=== PATIENT | male | born 1960 | race American Indian/Alaskan Native ===

== ENCOUNTER 2019-07-21 13:30 | Inpatient (IN) | payer OTHER ==
[2019-07-21] MEDS ORDERED: PEPCID IV ONE (13:41)
[2019-07-21] MEDS ORDERED: SOLU-Medrol IV ONE (13:42)
[2019-07-21] MEDS ORDERED: ADRENALINE P/F SUB-Q ONE (13:42)
[2019-07-21] MEDS ORDERED: BENADRYL IV ONE (13:42)
[2019-07-21] MEDS ORDERED: NACL 0.9% 1000 ML 1,000 ML IV ONE (13:54)
[2019-07-21 14:09] LABS: Basophils % (Auto) 0.4 % (0.0-1.8); Eosinophils # (Auto) 1.4 K/mm3 (0.0-0.4); Eosinophils % (Auto) 12.8 % (0.0-4.3); Hematocrit 44.5 % (35.5-45.6); Hemoglobin 14.5 gm/dl (11.8-15.2); Lymphocytes # (Auto) 0.7 K/mm3 (1.2-5.4); Lymphocytes % (Auto) 6.3 % (13.4-35.0); Mean Corpuscular HGB Conc 33 % (32-34); Mean Corpuscular Volume 108 fl (84-94); Monocytes # (Auto) 0.4 K/mm3 (0.0-0.8); Monocytes % (Auto) 3.8 % (0.0-7.3); Platelet Count 173 K/mm3 (140-440); Red Blood Count 4.12 M/mm3 (3.65-5.03); Red Cell Distribution Width 15.4 % (13.2-15.2)
[2019-07-21 14:29] LABS: Albumin 3.1 g/dL (3.9-5); Calcium 8.9 mg/dL (8.4-10.2)
[2019-07-21] MEDS ORDERED: NACL 0.9% 500 ML 500 ML IV ONE (15:05)
[2019-07-21] MEDS ORDERED: KIONEX PO ONE (15:07)
[2019-07-21] MEDS ORDERED: D50W (25GM) Syringe IV ONE (15:07)
[2019-07-21] MEDS ORDERED: HumuLIN R IV ONE (15:07)
[2019-07-21] MEDS ORDERED: PROVENTIL IH ONE (15:07)
--- NOTE | 2019-07-21 15:29 | Emergency Department Report ---
HPI - General Chief Complaint: Allergic Reaction Time Seen by Provider: 07/21/19 13:41 - HPI HPI: 59-year-old -[place] male presents to the emergency department from home with the complaint of a full body rash, pain to the skin and body aches, painful mouth and throat, and questionable allergic reaction. The symptoms have been going on and getting progressively worse over the past 3 days. He has a past medical history of hypertension and gout. He denies being on any new medications or being on any antibiotics. The rash has been warm, red, painful but has always been dry. No recent travel or sick contacts at home. His primary care physician is Dr. Sabrina Diggs. The patient did not take anything for his symptoms prior to arrival today. ED Past Medical Hx - Past Medical History Previous Medical History?: Yes Hx Hypertension: Yes Hx CVA: No Hx Heart Attack/AMI: No Hx Congestive Heart Failure: No Hx Diabetes: No Hx Deep Vein Thrombosis: No Hx Pulmonary Embolism: No Hx GERD: No Hx Liver Disease: No Hx Renal Disease: No Hx of Cancer: No Hx Sickle Cell Disease: No Hx Arthritis: No Hx Headaches / Migraines: No Hx Seizures: No Hx Kidney Stones: No Hx Psychiatric Treatment: No Hx Asthma: No Hx COPD: No Hx Tuberculosis: No Hx Dementia: No Hx HIV: No - Surgical History Past Surgical History?: No Hx Coronary Stent: No Hx Open Heart Surgery: No Hx Pacemaker: No Hx Internal Defibrillator: No Hx Cholecystectomy: No Hx Appendectomy: No Hx Breast Surgery: No - Social History Smoking Status: Never Smoker - Medications Home Medications: Home Medications Medication Instructions Recorded Confirmed Last Taken Type Allopurinol [Zyloprim] 100 mg PO QDAY 07/21/19 07/21/19 07/20/19 History Allopurinol [Zyloprim] 300 mg PO QDAY 07/21/19 07/21/19 07/20/19 History Colchicine 0.6 mg PO BID 07/21/19 07/21/19 07/20/19 History Meloxicam [Mobic] 15 mg PO QDAY 07/21/19 07/21/19 07/20/19 History amLODIPine [Norvasc] 10 mg PO DAILY 07/21/19 07/21/19 07/20/19 History methylPREDNISolone [Medrol] 4 mg PO ONCE 07/21/19 07/21/19 07/17/19 History predniSONE [Deltasone] 5 mg PO BID 07/21/19 07/21/19 07/20/19 History ED Review of Systems ROS: Stated complaint: ALLERGIC REACTION Other details as noted in HPI Constitutional: denies: fever, weakness Eyes: denies: eye pain, vision change ENT: throat pain. denies: ear pain Respiratory: shortness of breath. denies: cough Cardiovascular: denies: chest pain, edema Gastrointestinal: denies: abdominal pain, vomiting Genitourinary: denies: dysuria, discharge Musculoskeletal: myalgia. denies: back pain Skin: rash, change in color Neurological: denies: headache, numbness Physical Exam - Physical Exam Vital Signs: Vital Signs 07/21/19 07/21/19 07/21/19 13:38 13:43 13:45 Temperature 97.4 F L Pulse Rate 111 H 89 106 H Respiratory 16 18 Rate Blood Pressure 129/89 129/89 Blood Pressure 129/89 [Right] O2 Sat by Pulse 99 100 Oximetry 07/21/19 07/21/19 07/21/19 14:00 14:15 14:31 Temperature Pulse Rate 102 H 99 H 104 H Respiratory 17 14 13 Rate Blood Pressure 130/88 130/88 130/88 Blood Pressure [Right] O2 Sat by Pulse 100 100 100 Oximetry 07/21/19 07/21/19 14:45 15:01 Temperature Pulse Rate 103 H 102 H Respiratory 16 15 Rate Blood Pressure 130/88 165/98 Blood Pressure [Right] O2 Sat by Pulse 100 98 Oximetry Physical Exam: GENERAL: Patient is ill-appearing. HENT: Normocephalic. Atraumatic. Patient has dry mucous membranes. Mildly swollen tongue. No drooling. There is mild trismus secondary to pain. Patient is able to swallow but has visible pain with doing so. EYES: Extraocular motions are intact. Pupils equal reactive to light bila terally. NECK: Supple. Trachea is midline. CHEST/LUNGS: Clear to auscultation. There is no respiratory distress noted. HEART/CARDIOVASCULAR: Regular. There is mild tachycardia. There is no murmur. ABDOMEN: Abdomen is soft, nontender. Patient has normal bowel sounds. There is no abdominal distention. SKIN: Patient's entire chest, abdomen, back and bilateral upper extremities has warm, blanchable, erythematous skin. He has some erythematous macular spots down the bilateral lower extremities that could be petechiae. There is no blistering, weeping, drainage. Negative Nikolsky sign. Patient has severely chapped lips with crusting/eschar. NEURO: The patient is awake, alert, and oriented. The patient is cooperative. The patient has no focal neurologic deficits. Normal speech. MUSCULOSKELETAL: Patient has generalized tenderness to palpation including all of his extremities. There is no limitation range of motion. ED Course Vital Signs 07/21/19 07/21/19 07/21/19 13:38 13:43 13:45 Temperature 97.4 F L Pulse Rate 111 H 89 106 H Respiratory 16 18 Rate Blood Pressure 129/89 129/89 Blood Pressure 129/89 [Right] O2 Sat by Pulse 99 100 Oximetry 07/21/19 07/21/19 07/21/19 14:00 14:15 14:31 Temperature Pulse Rate 102 H 99 H 104 H Respiratory 17 14 13 Rate Blood Pressure 130/88 130/88 130/88 Blood Pressure [Right] O2 Sat by Pulse 100 100 100 Oximetry 07/21/19 07/21/19 14:45 15:01 Temperature Pulse Rate 103 H 102 H Respiratory 16 15 Rate Blood Pressure 130/88 165/98 Blood Pressure [Right] O2 Sat by Pulse 100 98 Oximetry - Consultations Consultation #1: 07/21/19 15:[address] Chavis, Nephrology, this into the case presentation and has asked for the hyperkalemia cocktail to be given including a few amps of sodium bicarbonate. He says that his partner, Dr Gil, will be in to see the patient. Shortly afterwards, Dr Gil called and asked for vascular surgery to be consulted for a vas cath placement as the patient will need emergent dialysis. Vascular paged. ED Medical Decision Making - Lab Data Result diagrams: 07/21/19 13:50 07/21/19 13:50 - EKG Data -: EKG Interpreted by Me EKG shows normal: sinus rhythm, axis (left axis deviation and see her EOM), intervals, QRS complexes (Incomplete LBBB), ST-T waves Rate: normal - EKG Data When compared to previous EKG there are: previous EKG unavailable Interpretation: other (incomplete LBBB) - Radiology Data Radiology results: image reviewed interpreted by me: Chest x-ray does not show any acute process. There are no pleural effusions, obvious pneumonia and there is no pneumothorax. - Medical Decision Making This patient presented with the thought that he might have an allergic reaction as he has been having increased redness and rash to the skin. However it does not appear like a typical allergic reaction as these are not urticarial lesions. His entire abdomen, chest, back and upper extremities have a confluent erythema that is warm and blanchable. It is slightly thickened as well. He has some macular spots going down the bilateral lower extremities that could be some petechiae. All of his skin and most of his body is tender to palpation. He has some pain with swallowing. He has severely chapped lips with some crusting or eschar around. He has slightly swollen tongue but there is no drooling or trismus. His oxygen saturation was 100% on room air. Initially he was given the allergic reaction cocktail of medications. Patient's labs were severely abnormal. He has acute renal failure with a GFR of 2 and a potassium level greater than 8. He received the hyperkalemia cocktail. Nephrology was contacted and consulted. Vascular surgery to the patient for a Vas-Cath and then the patient went immediately to dialysis. His vital signs are stable throughout his [place]. The patient will be admitted to the hospital for further evaluation and treatment and was accepted for admission by the hospitalist, Dr. Duke. - Differential Diagnosis SSS, Lupus Nephritis, Sepsis, Angioedema Critical Care Time: Yes Critical care time in (mins) excluding proc time.: 35 Critical care attestation.: If time is entered above; I have spent that time in minutes in the direct care of this critically ill patient, excluding procedure time. Critical care time was spent on this patient and doing his initial evaluation, multiple re-evaluations, ordering and interpretation of labs and imaging, discussion with the director of publications, vascular surgery, hospitalist, and the patient and his family. Critical Care Time: 35 minutes ED Disposition Clinical Impression: Hyperkalemia, Rash and nonspecific skin eruption, Metabolic acidosis, Elevated liver enzymes Acute renal failure Qualifiers: Acute renal failure type: unspecified Qualified Code(s): N17.9 - Acute kidney failure, unspecified Disposition: 09 OP ADMIT IP TO THIS HOSP Is pt being admited?: Yes Condition: Serious Time of Disposition: 16:40
[2019-07-21] MEDS ORDERED: CALCIUM GLUCONATE 1,000 MG in NACL 0.9% 100 ML IV ONE (15:30)
--- NOTE | 2019-07-21 15:32 | XRay Report ---
CHEST 1 VIEW INDICATION: Shortness of breath. COMPARISON: None FINDINGS: Support devices: None. Heart: Within normal limits. Lungs/Pleura: No acute air space or interstitial disease. Additional findings: None. IMPRESSION: No acute findings. Signer Name: Adam Burroughs Jr, MD Signed: 07/21/2019 3:28 PM Workstation Name: [id number]
--- NOTE | 2019-07-21 15:46 | Consultation ---
History of Present Illness - Reason for Consult Consult date: 07/21/19 acute renal failure, hyperkalemia, metabolic acidosis Requesting physician: JESSIE MILLS - History of Present Illness This is a 59 y/o M who presented to [facility] ED with PMH of HTN, CKD (exact stage un known), and gout with c/o full body rash with pain, body aches, sore throat, tongue swelling, shortness of breath, and mouth pain that has progressively worsened over the past 3 days. Pt denies taking any new medications or using new washing powder or detergent to his knowledge. Pt denies nausea, vomiting, diarrhea, constipation, black or bloody stool. Pt found to have severe hyperkalemia (K+ 8.2), metabolic acidosis, and worsening renal function. SCr level was 24.3 today. Kayexalate, sodium bicarbonate, calcium gluconate, IV insulin/D50 ordered in ED. Pt s/p solu-medrol, Epi, albuterol, and benadryl. Vascular surgery consulted for Vas Cath placement for STAT HD. First HD treatment today. We were consulted to evaluate this pt who has severe renal failure with hyperkalemia and acidosis. Pt denies NSAIDs use, but meloxicam noted on home medication list, will need to confirm medications. Pt reports seeing Dr Holt (last turner) in [place], [place] over a year ago for abnormal renal function, but never followed up after initial office visit. Pt currently isn't followed by a last turner. Pt seen in the ED, currently getting breathing treatment, family at bedside. Pt and family agreeable to Vas Cath placement and HD. Past History Past Medical History: hypertension, other (gout, chronic kidney disease) Medications and Allergies Allergies Allergy/AdvReac Type Severity Reaction Status Date / Time Unable to Assess Allergy Unverified 07/21/19 16:46 Home Medications Medication Instructions Recorded Confirmed Last Taken Type Allopurinol [Zyloprim] 100 mg PO QDAY 07/21/19 07/21/19 07/20/19 History Allopurinol [Zyloprim] 300 mg PO QDAY 07/21/19 07/21/19 07/20/19 History Colchicine 0.6 mg PO BID 07/21/19 07/21/19 07/20/19 History Meloxicam [Mobic] 15 mg PO QDAY 07/21/19 07/21/19 07/20/19 History amLODIPine [Norvasc] 10 mg PO DAILY 07/21/19 07/21/19 07/20/19 History methylPREDNISolone [Medrol] 4 mg PO ONCE 07/21/19 07/21/19 07/17/19 History predniSONE [Deltasone] 5 mg PO BID 07/21/19 07/21/19 07/20/19 History Active Meds: Active Medications Sodium Chloride (Nacl 0.9% 1000 Ml) 1,000 mls @ 250 mls/hr IV ONCE ONE Stop: 07/21/19 17:53 Last Admin: 07/21/19 14:03 Dose: 250 mls/hr Documented by: Review of Systems Constitutional: fatigue, weakness Ears, nose, mouth and throat: mouth pain, sore throat, swelling in mouth Cardiovascular: shortness of breath Respiratory: shortness of breath Gastrointestinal: no abdominal pain, no nausea, no vomiting, no diarrhea, no constipation, no melena Genitourinary Male: no hematuria Musculoskeletal: muscle weakness Integumentary: rash (diffuse rash throughout entire body) Neurological: weakness Allergic/Immunologic: other (diffuse rash, sore throat, mouth pain, tongue swelling) Exam - Vital Signs Vital signs: Vital Signs Pulse 111 H 07/21/19 13:38 - General Appearance General appearance: other (awake) EENT: ATNC Neck: Present: neck supple Respiratory: Decreased Breath Sounds Heart: regular, S1S2 Gastrointestinal: Present: normoactive bowel sounds. Absent: tenderness Integumentary: rash (diffuse rash throughout entire body) Neurologic: alert and oriented x3 Musculoskeletal: Present: other (no edema to BLE) Psychiatric: cooperative Results - Lab Results 07/21/19 13:50 07/21/19 13:50 Most recent lab results Calcium 8.9 mg/dL (8.4-10.2) 07/21/19 13:50 Assessment and Plan Diffuse Rash concern of allergic reaction Acute Kidney Injury on CKD, exact etiology of acute component unclear, underlying hx of CKD (exact stage unknown), r/o obstruction Hyperkalemia High Anion Gap Metabolic Acidosis Essential HTN Hx of Gout Plan: - Labs reviewed, SCr level was 24.3 with BUN of 163 today - Pt reports seeing a last turner 1 yr ago for abnormal renal function, but never followed up after initial office visit - Discussed with pt and family about nephrology recommendation for initiation of HD including need for Vas Catheter placement, unclear at this time if pt will need hemodialysis temporary in hospital vs longer term as an outpatient. We will evaluate pt daily and adjust renal management as needed. Pt and family agreeable to dialysis catheter placement and HD - Consulted Dr Romulo Ramos (vascular surgeon) for Vas Catheter placement - STAT HD today for clearance only, no ultrafiltration - Dialysis nurse notified about HD orders - Assess need for HD on daily basis - Repeat BMP at 2200 post HD - Obtain list of home medications for review - Avoid ACEI/ARBs in setting of severe renal failure - Avoid NSAIDs - Obtain Renal US - Obtain UA/lytes and urine protein, will evaluate need for GN/vasculitis work up - Renally dose meds - [place] Catheter: No - Renal plan d/w Dr Gil
[2019-07-21] MEDS ORDERED: VERSED ONE (16:23)
[2019-07-21] MEDS ORDERED: SUBLIMAZE ONE (16:23)
[2019-07-21] MEDS ORDERED: NACL 0.9% 250ML 250 ML ONE (16:24)
[2019-07-21] MEDS ORDERED: HEPARIN/NS 5000 UNIT/500ML(CATH LAB) 500 ML IR ONE (16:24)
[2019-07-21] MEDS ORDERED: XYLOCAINE 1%/ EPI 1:100,000 INFILTRATI ONE (16:24)
--- NOTE | 2019-07-21 17:00 | Consultation ---
History of Present Illness - Reason for Consult Consult date: 07/21/19 Vas-Cath Placement Requesting physician: JESSIE MILLS - History of Present Illness The patient is a 59-year-old male who presented to the emergency department with complaints of a full body rash, also involving his mouth and tongue that started approximately 3 days ago and progressively worsened associated with shortness of breath and generalized body pain. He has a past medical history significant for hypertension and chronic kidney disease of unknown stage. His labs included a BMP with hyperkalemia of 8.2. He is in need of emergent dialysis. He requires placement of a Vas-Cath. He has no other complaints at this time. Past History Past Medical History: hypertension, other (gout, chronic kidney disease) Medications and Allergies Allergies Allergy/AdvReac Type Severity Reaction Status Date / Time Unable to Assess Allergy Unverified 07/21/19 16:46 Home Medications Medication Instructions Recorded Confirmed Last Taken Type Allopurinol [Zyloprim] 100 mg PO QDAY 07/21/19 07/21/19 07/20/19 History Allopurinol [Zyloprim] 300 mg PO QDAY 07/21/19 07/21/19 07/20/19 History Colchicine 0.6 mg PO BID 07/21/19 07/21/19 07/20/19 History Meloxicam [Mobic] 15 mg PO QDAY 07/21/19 07/21/19 07/20/19 History amLODIPine [Norvasc] 10 mg PO DAILY 07/21/19 07/21/19 07/20/19 History methylPREDNISolone [Medrol] 4 mg PO ONCE 07/21/19 07/21/19 07/17/19 History predniSONE [Deltasone] 5 mg PO BID 07/21/19 07/21/19 07/20/19 History Active Meds: Active Medications Sodium Chloride (Nacl 0.9% 1000 Ml) 1,000 mls @ 250 mls/hr IV ONCE ONE Stop: 07/21/19 17:53 Last Admin: 07/21/19 14:03 Dose: 250 mls/hr Documented by: Review of Systems All systems: negative Exam - Constitutional Vitals: Temp Pulse Resp BP Pulse Ox 97.4 F L 102 H 15 165/98 98 07/21/19 13:43 07/21/19 15:01 07/21/19 15:01 07/21/19 15:01 07/21/19 15:01 General appearance: Present: no acute distress - EENT ENT: ulcerations (lips/tongue) - Respiratory Respiratory effort: normal - Cardiovascular Rhythm: regular - Extremities Extremities: no ischemia - Abdominal General gastrointestinal: Present: soft, non-distended - Integumentary Integumentary: Present: rash (diffuse) Results - Labs CBC & Chem 7: 07/21/19 13:50 07/21/19 13:50 Labs: Abnormal lab results 07/21/19 07/21/19 07/21/19 Range/Units 13:50 13:50 13:50 WBC 11.2 H (4.5-11.0) K/mm3 MCV 108 H (84-94) fl MCH 35 H (28-32) pg RDW 15.4 H (13.2-15.2) % Lymph % (Auto) 6.3 L (13.4-35.0) % Eos % (Auto) 12.8 H (0.0-4.3) % Lymph # 0.7 L (1.2-5.4) K/mm3 Eos # 1.4 H (0.0-0.4) K/mm3 Seg Neutrophils % 76.7 H (40.0-70.0) % Seg Neutrophils # 8.6 H (1.8-7.7) K/mm3 VBG pH (7.320-7.420) Sodium 135 L (137-145) mmol/L Potassium 8.2 H* (3.6-5.0) mmol/L Chloride 94.5 L (98-107) mmol/L Carbon Dioxide 7 L* (22-30) mmol/L BUN 163 H (9-20) mg/dL Creatinine 24.7 H (0.8-1.5) mg/dL Glucose 118 H (75-100) mg/dL Lactic Acid 3.50 H* (0.7-2.0) mmol/L AST 205 H (5-40) units/L ALT 280 H (7-56) units/L Albumin 3.1 L (3.9-5) g/dL 07/21/19 Range/Units 15:18 WBC (4.5-11.0) K/mm3 MCV (84-94) fl MCH (28-32) pg RDW (13.2-15.2) % Lymph % (Auto) (13.4-35.0) % Eos % (Auto) (0.0-4.3) % Lymph # (1.2-5.4) K/mm3 Eos # (0.0-0.4) K/mm3 Seg Neutrophils % (40.0-70.0) % Seg Neutrophils # (1.8-7.7) K/mm3 VBG pH 7.179 L* (7.320-7.420) Sodium (137-145) mmol/L Potassium (3.6-5.0) mmol/L Chloride (98-107) mmol/L Carbon Dioxide (22-30) mmol/L BUN (9-20) mg/dL Creatinine (0.8-1.5) mg/dL Glucose (75-100) mg/dL Lactic Acid (0.7-2.0) mmol/L AST (5-40) units/L ALT (7-56) units/L Albumin (3.9-5) g/dL Assessment and Plan Patient with acute renal failure and in need of emergent dialysis. Discussed the risks benefits and alternative procedures of emergent Vas-Cath placement with the patient as well as his daughter who expressed understanding and agreement with the plan.
[2019-07-21] MEDS: HEPARIN 10,000 UNITS/10 ML ONE ×2 (17:15→17:16)
--- NOTE | 2019-07-21 17:47 | Operative Report ---
Operative Report Operative Report: Date of Procedure: 07/21/2019 Pre-operative Diagnosis: Acute Renal Failure with Hyperkalemia Post-operative Diagnosis: Same Procedure(s): 1. Ultrasound-Guided Access Right Internal Jugular Vein 2. Placement of 15 Cm Pre-Curved Vas-Cath 3. Radiologic Supervision and Interpretation Surgeon: Romulo Ramos M.D. Operations Research Group Manager: None Anesthesia: 1% Lidocaine Plain EBL: Minimal Counts: Correct Complications: None Condition: Stable Findings: Successful placement of right internal jugular permacath without evidence of pneumothorax. Specimen: None Indication: The patient is a 59-year-old male who presented to the emergency department with complaints of a generalized body rash that also involved his mouth and was associated with generalized body pain and shortness of breath. His labs indicated acute on chronic renal failure with hyperkalemia with a potassium of 8.2. He is in need of a Vas-Cath for emergent dialysis. He and his daughter were given the risks, benefits, and alternative procedures and consented to the procedure. Description of Procedure: The patient was brought to the production laborer and laid in supine position. After timeout his neck was then prepped and draped in normal sterile fashion. Ultrasound was used to identify the right internal jugular and confirm patency. Once patency of the vessel was confirmed the overlying skin and soft tissue was anesthetized with lidocaine. A small stab incision was made and micropuncture technique was used with ultrasound guidance to the right internal jugular vein. The inner dilator and wire were removed and a 0.035 J-wire was advanced into the inferior vena cava under fluoroscopy. The micropuncture sheath was removed and the tract was dilated and the Vas-Cath was then inserted by Seldinger technique. The J-wire was removed and both ports were aspirated and flushed and then primed with the appropriate amount of heparin. The catheter was secured in place with 2-0 Ethilon in interrupted fashion and dressed with a sterile dressing. Final fluoroscopy demonstrated the catheter was in adequate position without evidence of pneumothorax. The patient was transported back to the emergency department in stable condition.
[2019-07-21 19:46] LABS: Hepatitis B Surface Antigen Non-Reactive (Negative); Hepatitis C Virus Antibody Non-Reactive (NonReactive)
--- NOTE | 2019-07-21 20:57 | History and Physical Report ---
History of Present Illness Date of examination: 07/21/19 Date of admission: 07/21/19 16:40 Chief complaint: Rash all over for 2 or 3 days--redness all over History of present illness: 59-year-old -[place] male a very poor historian with history of gout, hypertension and end-stage renal disease comes in for a rash all over which is red. No maculopapular rash. Patient says that he is on vancomycin for last 1 week. Cannot use the reason why he is on the vancomycin. Patient was found to have a high potassium level around 8 in the emergency room--- hence admission for the high potassium and worsening renal function. Patient is not known to be on hemodialysis. Patient does not know who his first cook is. No fever or chills. Patient also has history of gout. No exacerbating or relieving factors except vancomycin. Review of Systems Constitutional: fatigue, weakness Ears, nose, mouth and throat: mouth pain, sore throat, swelling in mouth Cardiovascular: shortness of breath Respiratory: shortness of breath Gastrointestinal: no abdominal pain, no nausea, no vomiting, no diarrhea, no constipation, no melena Genitourinary Male: no hematuria Musculoskeletal: muscle weakness Integumentary: rash (diffuse rash throughout entire body) Neurological: weakness Allergic/Immunologic: other (diffuse rash, sore throat, mouth pain, tongue swelling) Past History Past Medical History: hypertension, other (gout, chronic kidney disease) Past Surgical History: No surgical history Social history: Lives alone, full code Family history: hypertension Medications and Allergies Allergies Allergy/AdvReac Type Severity Reaction Status Date / Time Unable to Assess Allergy Unverified 07/21/19 16:46 Home Medications Medication Instructions Recorded Confirmed Last Taken Type Allopurinol [Zyloprim] 100 mg PO QDAY 07/21/19 07/21/19 07/20/19 History Allopurinol [Zyloprim] 300 mg PO QDAY 07/21/19 07/21/19 07/20/19 History Colchicine 0.6 mg PO BID 07/21/19 07/21/19 07/20/19 History Meloxicam [Mobic] 15 mg PO QDAY 07/21/19 07/21/19 07/20/19 History amLODIPine [Norvasc] 10 mg PO DAILY 07/21/19 07/21/19 07/20/19 History methylPREDNISolone [Medrol] 4 mg PO ONCE 07/21/19 07/21/19 07/17/19 History predniSONE [Deltasone] 5 mg PO BID 07/21/19 07/21/19 07/20/19 History Exam - Constitutional Vitals: Temp Pulse Resp BP Pulse Ox 97.4 F L 94 H 13 179/113 99 07/21/19 13:43 07/21/19 18:15 07/21/19 18:15 07/21/19 18:15 07/21/19 18:15 General appearance: Present: no acute distress, well-nourished - EENT Eyes: Present: PERRL ENT: hearing intact, clear oral mucosa - Neck Neck: Present: supple, normal ROM - Respiratory Respiratory effort: normal Respiratory: bilateral: CTA - Cardiovascular Heart rate: 78 Rhythm: regular Heart Sounds: Present: S1 & S2. Absent: rub, click - Extremities Extremities: no ischemia, pulses intact, pulses symmetrical, No edema Peripheral Pulses: within normal limits - Abdominal General gastrointestinal: Present: soft, non-tender, non-distended, normal bowel sounds Male genitourinary: Present: normal - Integumentary Integumentary: Present: clear, warm, dry, erythema (erythema all over) - Musculoskeletal Musculoskeletal: gait normal, strength equal bilaterally - Psychiatric Psychiatric: appropriate mood/affect, intact judgment & insight - Neurologic Neurologic: CNII-XII intact, moves all extremities - Allied Health Allied health notes reviewed: nursing, case management Results - Labs CBC & Chem 7: 07/21/19 13:50 07/21/19 13:50 Labs: Laboratory Last Values WBC 11.2 K/mm3 (4.5-11.0) H 07/21/19 13:50 RBC 4.12 M/mm3 (3.65-5.03) 07/21/19 13:50 Hgb 14.5 gm/dl (11.8-15.2) 07/21/19 13:50 Hct 44.5 % (35.5-45.6) 07/21/19 13:50 MCV 108 fl (84-94) H 07/21/19 13:50 MCH 35 pg (28-32) H 07/21/19 13:50 MCHC 33 % (32-34) 07/21/19 13:50 RDW 15.4 % (13.2-15.2) H 07/21/19 13:50 Plt Count 173 K/mm3 (140-440) 07/21/19 13:50 Lymph % (Auto) 6.3 % (13.4-35.0) L 07/21/19 13:50 Jack % (Auto) 3.8 % (0.0-7.3) 07/21/19 13:50 Eos % (Auto) 12.8 % (0.0-4.3) H 07/21/19 13:50 Baso % (Auto) 0.4 % (0.0-1.8) 07/21/19 13:50 Lymph # 0.7 K/mm3 (1.2-5.4) L 07/21/19 13:50 Jack # 0.4 K/mm3 (0.0-0.8) 07/21/19 13:50 Eos # 1.4 K/mm3 (0.0-0.4) H 07/21/19 13:50 Baso # 0.0 K/mm3 (0.0-0.1) 07/21/19 13:50 Seg Neutrophils % 76.7 % (40.0-70.0) H 07/21/19 13:50 Seg Neutrophils # 8.6 K/mm3 (1.8-7.7) H 07/21/19 13:50 VBG pH 7.179 (7.320-7.420) L* 07/21/19 15:18 Sodium 135 mmol/L (137-145) L 07/21/19 13:50 Potassium 8.2 mmol/L (3.6-5.0) H* 07/21/19 13:50 Chloride 94.5 mmol/L (98-107) L 07/21/19 13:50 Carbon Dioxide 7 mmol/L (22-30) L* 07/21/19 13:50 42 mmol/L 07/21/19 13:50 BUN 163 mg/dL (9-20) H 07/21/19 13:50 24.7 mg/dL (0.8-1.5) H 07/21/19 13:50 Estimated GFR 2 ml/min 07/21/19 13:50 7 % 07/21/19 13:50 Glucose 118 mg/dL (75-100) H 07/21/19 13:50 Lactic Acid 1.90 mmol/L (0.7-2.0) 07/21/19 15:18 Calcium 8.9 mg/dL (8.4-10.2) 07/21/19 13:50 0.30 mg/dL (0.1-1.2) 07/21/19 13:50 AST 205 units/L (5-40) H 07/21/19 13:50 ALT 280 units/L (7-56) H 07/21/19 13:50 103 units/L (35-129) 07/21/19 13:50 96 units/L (55-170) 07/21/19 13:50 6.4 g/dL (6.3-8.2) 07/21/19 13:50 3.1 g/dL (3.9-5) L 07/21/19 13:50 0.9 % 07/21/19 13:50 TSH 0.753 mlU/mL (0.270-4.200) 07/21/19 13:50 Hepatitis A IgM Ab Non-reactive (NonReactive) 07/21/19 13:50 Hep Bs Antigen Non-reactive (Negative) 07/21/19 13:50 Hep B Core IgM Ab Non-reactive (NonReactive) 07/21/19 13:50 Non-reactive (NonReactive) 07/21/19 13:50 Short CBC 07/21/19 Range/Units 13:50 WBC 11.2 H (4.5-11.0) K/mm3 Hgb 14.5 (11.8-15.2) gm/dl Hct 44.5 (35.5-45.6) % Plt Count 173 (140-440) K/mm3 BMP 07/21/19 13:50 Sodium 135 L Potassium 8.2 H* Chloride 94.5 L Carbon Dioxide 7 L* BUN 163 H Creatinine 24.7 H Glucose 118 H Calcium 8.9 Cardiac Enzymes 07/21/19 Range/Units 13:50 Total Creatine Kinase 96 (55-170) units/L Liver Function 07/21/19 Range/Units 13:50 Total Bilirubin 0.30 (0.1-1.2) mg/dL AST 205 H (5-40) units/L ALT 280 H (7-56) units/L Alkaline Phosphatase 103 (35-129) units/L Albumin 3.1 L (3.9-5) g/dL - Imaging and Cardiology EKG: report reviewed (heart rate of 99/m, incomplete left bundle-branch block) Chest x-ray: report reviewed (no acute findings) Assessment and Plan Advance Directives: Yes (full code) VTE prophylaxis?: Chemical Plan of care discussed with patient/family: Yes - Patient Problems (1) Acute renal failure Current Visit: Yes Status: Acute Qualifiers: Acute renal failure type: with acute renal cortical necrosis Qualified Code(s): N17.1 - Acute kidney failure with acute cortical necrosis Plan to address problem: Acute on chronic renal failure sec to ATN Patient never had hemodialysis As per daughter patient has chronic kidney disease Patient and the daughter do not know the name of his first cook Patient to get emergent hemodialysis after Vas-Cath placement (2) Hyperkalemia Current Visit: Yes Status: Acute Plan to address problem: Patient treated with the Kayexalate calcium gluconate and sodium bicarbonate and IV insulin. 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 Not clear why he is taking vancomycin Patient very poor historian Patient on prednisone IV Solu-Medrol for 48 hours at low-dose (4) Elevated liver enzymes Current Visit: Yes Status: Acute Plan to address problem: Elevated liver enzymes Hepatitis profile ordered (5) Metabolic acidosis Current Visit: Yes Status: Acute Plan to address problem: Secondary to severe uremia Hopefully should correct with hemodialysis (6) Hypertension Current Visit: Yes Status: Chronic Qualifiers: Hypertension type: essential hypertension Qualified Code(s): I10 - Essential (primary) hypertension Plan to address problem: Continue antihypertensives (7) Gout Current Visit: Yes Status: Inactive Plan to address problem: Inactive Continue allopurinol (8) DVT prophylaxis Current Visit: Yes Status: Acute Plan to address problem: On heparin 5000 every 12 and GI prophylaxis
[2019-07-21] MEDS ORDERED: ZOFRAN IV PRN ×2 (21:15→21:46)
[2019-07-21] MEDS ORDERED: TYLENOL PO PRN ×2 (21:15→21:46)
[2019-07-21] MEDS ORDERED: PERCOCET 5/325 PO PRN (21:15)
[2019-07-21] MEDS ORDERED: DILAUDID IV PRN (21:15)
[2019-07-21] MEDS ORDERED: SODIUM CHLORIDE FLUSH SYRINGE 10 ML IV PRN ×2 (21:15→21:46)
[2019-07-21] MEDS ORDERED: REGLAN IV PRN (21:46)
[2019-07-21] MEDS ORDERED: SODIUM CHLORIDE FLUSH SYRINGE 10 ML IV SCH (22:00)
[2019-07-21] MEDS ORDERED: PEPCID PO SCH (22:00)
[2019-07-21] MEDS ORDERED: NACL 0.9 (PRIMING MACHINE ONLY DIALYSIS) MC ONE (23:59)
[2019-07-22] MEDS: NORVASC PO SCH ×2 (00:43→10:26)
[2019-07-22] MEDS: PEPCID PO SCH ×3 (00:43→21:49)
[2019-07-22] MEDS: ZYLOPRIM PO SCH ×2 (00:43→10:26)
[2019-07-22] MEDS: SOLU-Medrol IV SCH ×4 (00:43→21:49)
[2019-07-22] MEDS: SODIUM CHLORIDE FLUSH SYRINGE 10 ML IV SCH ×3 (00:44→21:50)
[2019-07-22] MEDS: DELTASONE PO SCH ×2 (00:49→10:26)
[2019-07-22 07:11] LABS: Calcium 7.9 mg/dL (8.4-10.2)
--- NOTE | 2019-07-22 08:08 | Ultrasound Report ---
ULTRASOUND RENAL INDICATION / CLINICAL INFORMATION: Acute kidney injury. COMPARISON: None available. FINDINGS: RIGHT KIDNEY: Length = 10.1 cm. [normal > 9 cm] - Parenchymal Thickness = 1.7 cm. [normal > 1.5 cm] - Echogenicity: Increased - Hydronephrosis: None. - Cyst or mass: No significant abnormality. - Stones: None seen. LEFT KIDNEY: Length = 9.3 cm. [normal > 9 cm] - Parenchymal Thickness = 1.4 cm. [normal > 1.5 cm] - Echogenicity: Increased - Hydronephrosis: None. - Cyst or mass: No significant abnormality. - Stones: None seen. URINARY BLADDER: Empty but no gross abnormality FREE FLUID: None. ADDITIONAL FINDINGS: None. IMPRESSION: Normal size but markedly echogenic kidneys consistent with nonspecific renal parenchymal disease. No focal renal lesion or hydronephrosis is identified. Signer Name: Adam Burroughs Jr, MD Signed: 07/22/2019 8:03 AM Workstation Name: [id number]
--- NOTE | 2019-07-22 08:56 | Progress Note ---
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 Plan to address problem: Stable, Continue allopurinol --Moderate malnutrition; hypoalbuminemia Nutrition supplements, supportive care -- DVT prophylaxis Current Visit: Yes Status: Acute On heparin 5000 every 12 and GI prophylaxis Monitor closely and adjust management as needed Center recommendations noted and appreciated Plan of care is reviewed with the patient and his nurse History Interval history: Patient seen and examined , medical records reviewed. 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 Patient feels slightly better Alert awake oriented vital signs reviewed Hospitalist Physical - Constitutional Vitals: Temp Pulse Resp BP Pulse Ox 98.0 F 64 18 132/90 85 07/22/19 08:07 07/22/19 08:07 07/22/19 08:07 07/22/19 08:07 07/22/19 08:07 General appearance: Present: no acute distress, well-nourished - EENT Eyes: Present: PERRL, EOM intact - Neck Neck: Present: supple, normal ROM - Respiratory Respiratory effort: normal Respiratory: bilateral: diminished, negative: rales, rhonchi, wheezing - Cardiovascular Rhythm: regular Heart Sounds: Present: S1 & S2 - Extremities Extremities: no ischemia, No edema - Abdominal General gastrointestinal: soft, non-tender, non-distended, normal bowel sounds - Integumentary Integumentary: Present: clear, warm - Psychiatric Psychiatric: appropriate mood/affect, cooperative - Neurologic Neurologic: CNII-XII intact, moves all extremities Results - Labs CBC & Chem 7: 07/21/19 13:50 07/22/19 06:25 Labs: Laboratory Last Values WBC 11.2 K/mm3 (4.5-11.0) H 07/21/19 13:50 RBC 4.12 M/mm3 (3.65-5.03) 07/21/19 13:50 Hgb 14.5 gm/dl (11.8-15.2) 07/21/19 13:50 Hct 44.5 % (35.5-45.6) 07/21/19 13:50 MCV 108 fl (84-94) H 07/21/19 13:50 MCH 35 pg (28-32) H 07/21/19 13:50 MCHC 33 % (32-34) 07/21/19 13:50 RDW 15.4 % (13.2-15.2) H 07/21/19 13:50 Plt Count 173 K/mm3 (140-440) 07/21/19 13:50 Lymph % (Auto) 6.3 % (13.4-35.0) L 07/21/19 13:50 Jewell % (Auto) 3.8 % (0.0-7.3) 07/21/19 13:50 Eos % (Auto) 12.8 % (0.0-4.3) H 07/21/19 13:50 Baso % (Auto) 0.4 % (0.0-1.8) 07/21/19 13:50 Lymph # 0.7 K/mm3 (1.2-5.4) L 07/21/19 13:50 Jewell # 0.4 K/mm3 (0.0-0.8) 07/21/19 13:50 Eos # 1.4 K/mm3 (0.0-0.4) H 07/21/19 13:50 Baso # 0.0 K/mm3 (0.0-0.1) 07/21/19 13:50 Seg Neutrophils % 76.7 % (40.0-70.0) H 07/21/19 13:50 Seg Neutrophils # 8.6 K/mm3 (1.8-7.7) H 07/21/19 13:50 VBG pH 7.179 (7.320-7.420) L* 07/21/19 15:18 Sodium 138 mmol/L (137-145) 07/22/19 06:25 Potassium 5.5 mmol/L (3.6-5.0) H 07/22/19 06:25 Chloride 95.6 mmol/L (98-107) L 07/22/19 06:25 Carbon Dioxide 20 mmol/L (22-30) L 07/22/19 06:25 28 mmol/L 07/22/19 06:25 BUN 87 mg/dL (9-20) H 07/22/19 06:25 15.9 mg/dL (0.8-1.5) H 07/22/19 06:25 Estimated GFR 4 ml/min 07/22/19 06:25 5 % 07/22/19 06:25 Glucose 150 mg/dL (75-100) H 07/22/19 06:25 5.1 % (4-6) 07/21/19 13:50 Lactic Acid 1.90 mmol/L (0.7-2.0) 07/21/19 15:18 Calcium 7.9 mg/dL (8.4-10.2) L 07/22/19 06:25 Phosphorus 7.60 mg/dL (2.5-4.5) H 07/22/19 06:25 Magnesium 1.80 mg/dL (1.7-2.3) 07/22/19 06:25 0.30 mg/dL (0.1-1.2) 07/21/19 13:50 AST 205 units/L (5-40) H 07/21/19 13:50 ALT 280 units/L (7-56) H 07/21/19 13:50 103 units/L (35-129) 07/21/19 13:50 100 units/L (55-170) 07/22/19 06:25 6.4 g/dL (6.3-8.2) 07/21/19 13:50 3.1 g/dL (3.9-5) L 07/21/19 13:50 0.9 % 07/21/19 13:50 TSH 0.753 mlU/mL (0.270-4.200) 07/21/19 13:50 PTH Intact 255.0 pg/mL (15-65) H 07/22/19 06:25 Hepatitis A IgM Ab Non-reactive (NonReactive) 07/21/19 13:50 Hep Bs Antigen Non-reactive (Negative) 07/21/19 13:50 Hep B Core IgM Ab Non-reactive (NonReactive) 07/21/19 13:50 Non-reactive (NonReactive) 07/21/19 13:50 Active Medications - Current Medications Current Medications: Generic Name Dose Route Start Last Admin Trade Name Freq PRN Reason Stop Dose Admin Acetaminophen 650 mg 07/21/19 21:15 Tylenol PO Q4H PRN Pain MILD(1-3)/Fever >100.5/PALOMARES Allopurinol 100 mg 07/21/19 22:00 07/22/19 00:43 Zyloprim PO 100 mg QDAY TAMMIE Administration Amlodipine Besylate 10 mg 07/21/19 22:00 07/22/19 00:43 Norvasc PO 10 mg DAILY TAMMIE Administration Famotidine 10 mg 07/21/19 22:00 07/22/19 00:43 Pepcid PO 10 mg BID TAMMIE Administration Hydromorphone HCl 0.25 mg 07/21/19 21:15 Dilaudid IV Q3H PRN Pain, Moderate (4-6) Methylprednisolone Sodium Succinate 40 mg 07/21/19 22:00 07/22/19 05:32 Solu-Medrol IV 40 mg Q8HR TAMMIE Administration Metoclopramide HCl 10 mg 07/21/19 21:46 Reglan IV Q6H PRN Nausea And Vomiting Ondansetron HCl 4 mg 07/21/19 21:46 Zofran IV Q8H PRN Nausea And Vomiting Oxycodone/Acetaminophen 1 tab 07/21/19 21:15 Percocet 5/325 PO Q6H PRN Pain, Moderate (4-6) Prednisone 10 mg 07/21/19 22:00 07/22/19 00:49 Deltasone PO Not Given QDAY TAMMIE Sodium Chloride 10 ml 07/21/19 22:00 07/22/19 00:44 Sodium Chloride Flush Syringe 10 Ml IV 10 ml BID TAMMIE Administration Sodium Chloride 10 ml 07/21/19 21:46 Sodium Chloride Flush Syringe 10 Ml IV PRN PRN LINE FLUSH
--- NOTE | 2019-07-22 09:03 | Progress Note ---
Assessment and Plan Diffuse Rash concern of allergic reaction Acute Kidney Injury on CKD, exact etiology of acute component unclear, underlying hx of CKD (exact stage unknown), r/o obstruction Hyperkalemia High Anion Gap Metabolic Acidosis Essential HTN Hx of Gout Plan: - dialysis again today for clearance and volume removal - baseline kidney function is unknown, will check secondary GN work up, may need kidney biopsy, to be ordered for Thursday - Assess need for HD on daily basis - Obtain list of home medications for review - Avoid ACEI/ARBs in setting of severe renal failure - Avoid NSAIDs - renal US negative for obstruction - Renally dose meds - [place] Catheter: No Nate Gil MD [phone] Subjective Date of service: 07/22/19 Principal diagnosis: severe renal failure Interval history: tolerated HD yesterday Objective - Vital Signs Vital signs: Vital Signs - 12hr 07/21/19 07/21/19 07/21/19 21:15 21:30 21:45 Temperature Pulse Rate 97 H 84 96 H Respiratory Rate Blood Pressure 192/94 111/86 157/90 O2 Sat by Pulse Oximetry O2 Sat by Pulse Oximetry [ Anterior Bilateral Throughout] 07/21/19 07/21/19 07/22/19 22:00 22:09 00:38 Temperature 97.4 F L 98.0 F Pulse Rate 93 H 95 H Respiratory 20 18 Rate Blood Pressure 130/75 140/75 182/115 O2 Sat by Pulse Oximetry O2 Sat by Pulse 97 Oximetry [ Anterior Bilateral Throughout] 07/22/19 07/22/19 02:08 08:07 Temperature 98.0 F Pulse Rate 90 64 Respiratory 18 Rate Blood Pressure 132/90 O2 Sat by Pulse 85 Oximetry O2 Sat by Pulse Oximetry [ Anterior Bilateral Throughout] - General Appearance General appearance: well-developed, well-nourished, appears stated age EENT: ATNC, PERRL, mucous membranes moist Neck: no JVD Respiratory: Present: Clear to Ascultation Cardiology: regular, S1S2 Gastrointestinal: normoactive bowel sounds Integumentary: warm and dry Neurologic: no focal deficit, no asterixis Musculoskeletal: other (trace pitting edema in BLE) Psychiatric: cooperative - Lab 07/21/19 13:50 07/22/19 06:25 Most recent lab results Calcium 7.9 mg/dL (8.4-10.2) L 07/22/19 06:25 Phosphorus 7.60 mg/dL (2.5-4.5) H 07/22/19 06:25 Magnesium 1.80 mg/dL (1.7-2.3) 07/22/19 06:25 Medications & Allergies - Medications Allergies/Adverse Reactions: Allergies Unable to Assess Allergy (Verified 07/21/19 22:27) . Home Medications: Home Medications Medication Instructions Recorded Confirmed Last Taken Type Allopurinol [Zyloprim] 100 mg PO QDAY 07/21/19 07/21/19 07/20/19 History Allopurinol [Zyloprim] 300 mg PO QDAY 07/21/19 07/21/19 07/20/19 History Colchicine 0.6 mg PO BID 07/21/19 07/21/19 07/20/19 History Meloxicam [Mobic] 15 mg PO QDAY 07/21/19 07/21/19 07/20/19 History amLODIPine [Norvasc] 10 mg PO DAILY 07/21/19 07/21/19 07/20/19 History methylPREDNISolone [Medrol] 4 mg PO ONCE 07/21/19 07/21/19 07/17/19 History predniSONE [Deltasone] 5 mg PO BID 07/21/19 07/21/19 07/20/19 History Active Medications: Generic Name Dose Route Start Last Admin Trade Name Freq PRN Reason Stop Dose Admin Acetaminophen 650 mg 07/21/19 21:15 Tylenol PO Q4H PRN Pain MILD(1-3)/Fever >100.5/PALOMARES Allopurinol 100 mg 07/21/19 22:00 07/22/19 00:43 Zyloprim PO 100 mg QDAY TAMMIE Administration Amlodipine Besylate 10 mg 07/21/19 22:00 07/22/19 00:43 Norvasc PO 10 mg DAILY TAMMIE Administration Famotidine 10 mg 07/21/19 22:00 07/22/19 00:43 Pepcid PO 10 mg BID TAMMIE Administration Hydromorphone HCl 0.25 mg 07/21/19 21:15 Dilaudid IV Q3H PRN Pain, Moderate (4-6) Methylprednisolone Sodium Succinate 40 mg 07/21/19 22:00 07/22/19 05:32 Solu-Medrol IV 40 mg Q8HR TAMMIE Administration Metoclopramide HCl 10 mg 07/21/19 21:46 Reglan IV Q6H PRN Nausea And Vomiting Ondansetron HCl 4 mg 07/21/19 21:46 Zofran IV Q8H PRN Nausea And Vomiting Oxycodone/Acetaminophen 1 tab 07/21/19 21:15 Percocet 5/325 PO Q6H PRN Pain, Moderate (4-6) Prednisone 10 mg 07/21/19 22:00 07/22/19 00:49 Deltasone PO Not Given QDAY TAMMIE Sodium Chloride 10 ml 07/21/19 22:00 07/22/19 00:44 Sodium Chloride Flush Syringe 10 Ml IV 10 ml BID TAMMIE Administration Sodium Chloride 10 ml 07/21/19 21:46 Sodium Chloride Flush Syringe 10 Ml IV PRN PRN LINE FLUSH
--- NOTE | 2019-07-22 11:33 | Consultation ---
History of Present Illness - Reason for Consult Consult date: 07/22/19 - History of Present Illness 59 yo M PMHx HTN, CKD, gout admitted to the hospital with full body painful rash, body aches, sore throat, tongue swelling SOB which began 3 days prior to admission and has progressively worsened. He denies any recent changes to his daily routine which would explain the rash including new laundry detergent, clothing, or new medications. He denies fevers, sweats, chills. He was found on admission to have hyperkalemia and worse renal function and was admitted for emergent dialysis. He was taken the the OR yesterday for placement of an RIJ dialysis catheter. He had previously seen a performance improvement manager in the past but never followed up. According to the hospitalist H&P he has been on vancomycin for the past week for unknown reasons. He was recently admitted at [facility]. Afebrile since admission with a white count of 11.2. Severe metabolic derangements. He is not currently on antibiotics. 07/21 BCx are NGTD. Imaging personally reviewed: Renal US: markedly echogenic kidneys CXR: normal. Review of systems: Bold if positive; otherwise negative GENERAL: fever, chills, weight loss, fatigue, night sweats EYES: blurry vision, eye pain HENT: headache, hearing loss, sore throat, dysphagia, sinus pain CARDIO: chest pain, palpitations, orthopnea PULM: shortness of breath, wheezing, cough, sputum, hemoptysis GI: nausea, vomiting, diarrhea, abdominal pain, blood in stool : urinary frequency, urgency, dysuria, urethral discharge MSK: joint pain, back pain, swelling SKIN: rash, redness HEME: easy bruising, bleeding Past History Past Medical History: hypertension, other (gout, chronic kidney disease) Past Surgical History: No surgical history Social history: Lives alone, full code Family history: hypertension Medications and Allergies Allergies Allergy/AdvReac Type Severity Reaction Status Date / Time Unable to Assess Allergy Verified 07/21/19 22:27 Home Medications Medication Instructions Recorded Confirmed Last Taken Type Allopurinol [Zyloprim] 100 mg PO QDAY 07/21/19 07/21/19 07/20/19 History Allopurinol [Zyloprim] 300 mg PO QDAY 07/21/19 07/21/19 07/20/19 History Colchicine 0.6 mg PO BID 07/21/19 07/21/19 07/20/19 History Meloxicam [Mobic] 15 mg PO QDAY 07/21/19 07/21/19 07/20/19 History amLODIPine [Norvasc] 10 mg PO DAILY 07/21/19 07/21/19 07/20/19 History methylPREDNISolone [Medrol] 4 mg PO ONCE 07/21/19 07/21/19 07/17/19 History predniSONE [Deltasone] 5 mg PO BID 07/21/19 07/21/19 07/20/19 History Active Meds: Active Medications Acetaminophen (Tylenol) 650 mg PO Q4H PRN PRN Reason: Pain MILD(1-3)/Fever >100.5/PALOMARES Allopurinol (Zyloprim) 100 mg PO QDAY [facility] Last Admin: 07/22/19 10:26 Dose: 100 mg Documented by: Amlodipine Besylate (Norvasc) 10 mg PO DAILY [facility] Last Admin: 07/22/19 10:26 Dose: 10 mg Documented by: Famotidine (Pepcid) 10 mg PO BID [facility] Last Admin: 07/22/19 10:26 Dose: 10 mg Documented by: Hydromorphone HCl (Dilaudid) 0.25 mg IV Q3H PRN PRN Reason: Pain, Moderate (4-6) Methylprednisolone Sodium Succinate (Solu-Medrol) 40 mg IV Q8HR [facility] Last Admin: 07/22/19 05:32 Dose: 40 mg Documented by: Metoclopramide HCl (Reglan) 10 mg IV Q6H PRN PRN Reason: Nausea And Vomiting Ondansetron HCl (Zofran) 4 mg IV Q8H PRN PRN Reason: Nausea And Vomiting Oxycodone/Acetaminophen (Percocet 5/325) 1 tab PO Q6H PRN PRN Reason: Pain, Moderate (4-6) Prednisone (Deltasone) 10 mg PO QDAY [facility] Last Admin: 07/22/19 10:26 Dose: 10 mg Documented by: Sodium Chloride (Sodium Chloride Flush Syringe 10 Ml) 10 ml IV BID [facility] Last Admin: 07/22/19 10:26 Dose: 10 ml Documented by: Sodium Chloride (Sodium Chloride Flush Syringe 10 Ml) 10 ml IV PRN PRN PRN Reason: LINE FLUSH Physical Examination - Physical Exam Narrative exam: General Normal appearance, well developed, no acute distress Eyes - PERRLA, EOM intact ENT - Moist mucous membranes, no lymphadenopathy Neck - No noticeable or palpable swelling, + lips scabs Lymph Nodes - No lymphadenopathy Cardiovascular - RRR no m/r/g, no JVD, no carotid bruits Lungs - Clear to auscultation, no use of accessory muscles, no crackles or wheezes. Skin - Diffuse redness and peeling Abdomen - Normal bowel sounds, abdomen soft and nontender Extremities - No edema, cyanosis or clubbing Musculoskeletal - 5/5 strength, normal range of motion, no swollen or erythematous joints. Neurological Alert and oriented x 3, CN 2-12 grossly intact. - Constitutional Vitals: Vital Signs Temp Pulse Resp BP Pulse Ox 98.0 F 64 18 132/90 85 07/22/19 08:07 07/22/19 08:07 07/22/19 08:07 07/22/19 08:07 07/22/19 08:07 Temperature -Last 24 Hours Temperature 98.0 F Temperature 98.0 F Temperature 97.4 F Temperature 98.1 F Temperature 97.4 F Temperature 97.4 F Results - Labs CBC & Chem 7: 07/21/19 13:50 07/22/19 06:25 Labs: Abnormal lab results 07/21/19 07/21/19 07/21/19 Range/Units 13:50 13:50 13:50 WBC 11.2 H (4.5-11.0) K/mm3 MCV 108 H (84-94) fl MCH 35 H (28-32) pg RDW 15.4 H (13.2-15.2) % Lymph % (Auto) 6.3 L (13.4-35.0) % Eos % (Auto) 12.8 H (0.0-4.3) % Lymph # 0.7 L (1.2-5.4) K/mm3 Eos # 1.4 H (0.0-0.4) K/mm3 Seg Neutrophils % 76.7 H (40.0-70.0) % Seg Neutrophils # 8.6 H (1.8-7.7) K/mm3 VBG pH (7.320-7.420) Sodium 135 L (137-145) mmol/L Potassium 8.2 H* (3.6-5.0) mmol/L Chloride 94.5 L (98-107) mmol/L Carbon Dioxide 7 L* (22-30) mmol/L BUN 163 H (9-20) mg/dL Creatinine 24.7 H (0.8-1.5) mg/dL Glucose 118 H (75-100) mg/dL Lactic Acid 3.50 H* (0.7-2.0) mmol/L Calcium (8.4-10.2) mg/dL Phosphorus (2.5-4.5) mg/dL AST 205 H (5-40) units/L ALT 280 H (7-56) units/L Lactate Dehydrogenase (91-180) units/L Albumin 3.1 L (3.9-5) g/dL PTH Intact (15-65) pg/mL 07/21/19 07/21/19 07/22/19 Range/Units 15:18 22:53 06:25 WBC (4.5-11.0) K/mm3 MCV (84-94) fl MCH (28-32) pg RDW (13.2-15.2) % Lymph % (Auto) (13.4-35.0) % Eos % (Auto) (0.0-4.3) % Lymph # (1.2-5.4) K/mm3 Eos # (0.0-0.4) K/mm3 Seg Neutrophils % (40.0-70.0) % Seg Neutrophils # (1.8-7.7) K/mm3 VBG pH 7.179 L* (7.320-7.420) Sodium (137-145) mmol/L Potassium 5.5 H (3.6-5.0) mmol/L Chloride 95.6 L 95.6 L (98-107) mmol/L Carbon Dioxide 17 L D 20 L (22-30) mmol/L BUN 74 H 87 H (9-20) mg/dL Creatinine 13.6 H 15.9 H (0.8-1.5) mg/dL Glucose 118 H 150 H (75-100) mg/dL Lactic Acid (0.7-2.0) mmol/L Calcium 8.0 L 7.9 L (8.4-10.2) mg/dL Phosphorus 7.60 H (2.5-4.5) mg/dL AST (5-40) units/L ALT (7-56) units/L Lactate Dehydrogenase (91-180) units/L Albumin (3.9-5) g/dL PTH Intact (15-65) pg/mL 07/22/19 07/22/19 Range/Units 06:25 10:10 WBC (4.5-11.0) K/mm3 MCV (84-94) fl MCH (28-32) pg RDW (13.2-15.2) % Lymph % (Auto) (13.4-35.0) % Eos % (Auto) (0.0-4.3) % Lymph # (1.2-5.4) K/mm3 Eos # (0.0-0.4) K/mm3 Seg Neutrophils % (40.0-70.0) % Seg Neutrophils # (1.8-7.7) K/mm3 VBG pH (7.320-7.420) Sodium (137-145) mmol/L Potassium (3.6-5.0) mmol/L Chloride (98-107) mmol/L Carbon Dioxide (22-30) mmol/L BUN (9-20) mg/dL Creatinine (0.8-1.5) mg/dL Glucose (75-100) mg/dL Lactic Acid (0.7-2.0) mmol/L Calcium (8.4-10.2) mg/dL Phosphorus (2.5-4.5) mg/dL AST (5-40) units/L ALT (7-56) units/L Lactate Dehydrogenase 415 H (91-180) units/L Albumin (3.9-5) g/dL PTH Intact 255.0 H (15-65) pg/mL - Imaging and Cardiology Chest x-ray: image reviewed Assessment and Plan Cultures: BCx 07/21 - NGTD Assessment: 59 yo M PMHx HTN, CKD, gout admitted to the hospital with full body painful rash, body aches, sore throat, tongue swelling SOB admitted with acute kidney failure and possible red man syndrome. 1. Vancomycin allergy - POssible SJS? Normally red man syndrome can be avoided by infusing the vancomycin slower, however given the history of tongue swelling and SOB I would recommend avoiding it altogether. 2. Unclear vancomycin use - Why he is even on it in the first place is a different story altogether. While we figure out exactly why he was receiving it, I would recommend starting daptomycin in case he had a MRSA bacteremia at an OSH. If found to be not necessary, we can always stop it. 3. JENNY on CKD - now on HD, will; renally dose antibiotics. 4. HTN 5. Gout Recs: - start daptomycin 8mg/kg q48h - follow up OSH outside records. - add vancomycin to allergy list. Thank you for the consult, we will continue to follow. Elvin Adkins MD [facility] M: [phone] O: [phone] F: [phone]
[2019-07-22] MEDS ORDERED: DAPTOMYCIN IV SCH (12:00)
[2019-07-22] MEDS ORDERED: NACL 0.9% IV SCH (12:00)
[2019-07-22 14:01] LABS: Smear for Schistocytes None Seen
[2019-07-22] MEDS ORDERED: NACL 0.9 (PRIMING MACHINE ONLY DIALYSIS) MC ONE (21:36)
[2019-07-23] MEDS: SOLU-Medrol IV SCH ×4 (07:16→21:32)
[2019-07-23 07:46] LABS: Basophils # (Auto) 0.1 K/mm3 (0.0-0.1); Eosinophils # (Auto) 0.2 K/mm3 (0.0-0.4); Eosinophils % (Auto) 1.9 % (0.0-4.3); Monocytes # (Auto) 0.6 K/mm3 (0.0-0.8); Monocytes % (Auto) 5.5 % (0.0-7.3)
[2019-07-23 07:56] LABS: Basophils % (Auto) 0.8 % (0.0-1.8); Hematocrit 38.5 % (35.5-45.6); Hemoglobin 12.9 gm/dl (11.8-15.2); Lymphocytes # (Auto) 1.2 K/mm3 (1.2-5.4); Lymphocytes % (Auto) 10.7 % (13.4-35.0); Mean Corpuscular HGB Conc 34 % (32-34); Mean Corpuscular Volume 104 fl (84-94); Red Blood Count 3.71 M/mm3 (3.65-5.03); Red Cell Distribution Width 14.9 % (13.2-15.2)
[2019-07-23 08:05] LABS: Calcium 7.4 mg/dL (8.4-10.2)
[2019-07-23 08:09] LABS: Platelet Count 98 K/mm3 (140-440)
[2019-07-23 08:13] LABS: Albumin 2.9 g/dL (3.9-5); Bilirubin,Direct 0.2 mg/dL (0-0.2)
--- NOTE | 2019-07-23 10:04 | Progress Note ---
Assessment and Plan Diffuse Rash concern of allergic reaction Acute Kidney Injury on CKD, exact etiology of acute component unclear, ? GN/vasculitis etiology, underlying hx of CKD (exact stage unknown), no obstruction Hyperkalemia High Anion Gap Metabolic Acidosis Essential HTN Hx of Gout Plan: - Renal function reviewed, SCr level was 11.2 today, yesterday's SCr level was 15.9 - S/p 2nd HD yesterday for clearance only - Initiated on HD on 07/21/19 - No acute indication for HD today - Assess need for HD on daily basis - Monitor for signs of renal recovery - Obtain GN work up, may need kidney biopsy - Hepatitis panel and HIV negative - LJ, ANCA, Anti-GBM, C3, C4, SPEP pending - Avoid ACEI/ARBs in setting of severe renal failure - ID on board, switched to daptomycin, f/u recs - On steroids - Avoid NSAIDs - Renally dose meds - [place] Catheter: No - Renal plan d/w Dr Chavis Subjective Date of service: 07/23/19 Principal diagnosis: severe renal failure Interval history: Pt seen in bed, states he still has mouth pain and dizziness with generalized weakness if he tries to get up at times, no acute distress. Pt reports wanting more liquid/soft food to eat given mouth pain. Family at bedside, updated on renal plan Objective - Vital Signs Vital signs: Vital Signs - 12hr 07/23/19 07/23/19 07/23/19 00:09 04:06 04:53 Temperature 98.2 F 98.4 F Pulse Rate 84 80 87 Respiratory 18 18 Rate Blood Pressure 142/100 150/102 O2 Sat by Pulse 95 96 Oximetry - General Appearance General appearance: other (awake) EENT: ATNC Neck: no JVD Respiratory: Present: Decreased Breath Sounds Cardiology: regular, S1S2, other (ACCESS: Right IJ vas catheter intact) Gastrointestinal: normoactive bowel sounds, no tenderness Integumentary: rash (diffuse rash throughout body) Neurologic: alert and oriented x3 Musculoskeletal: other (no edema to BLE) Psychiatric: cooperative - Lab 07/23/19 07:07 07/23/19 07:07 Most recent lab results Calcium 7.4 mg/dL (8.4-10.2) L 07/23/19 07:07 Phosphorus 8.10 mg/dL (2.5-4.5) H 07/23/19 07:07 Magnesium 1.80 mg/dL (1.7-2.3) 07/22/19 06:25 Medications & Allergies - Medications Allergies/Adverse Reactions: Allergies Unable to Assess Allergy (Verified 07/21/19 22:27) . Home Medications: Home Medications Medication Instructions Recorded Confirmed Last Taken Type Allopurinol [Zyloprim] 100 mg PO QDAY 07/21/19 07/21/19 07/20/19 History Allopurinol [Zyloprim] 300 mg PO QDAY 07/21/19 07/21/19 07/20/19 History Colchicine 0.6 mg PO BID 07/21/19 07/21/19 07/20/19 History Meloxicam [Mobic] 15 mg PO QDAY 07/21/19 07/21/19 07/20/19 History amLODIPine [Norvasc] 10 mg PO DAILY 07/21/19 07/21/19 07/20/19 History methylPREDNISolone [Medrol] 4 mg PO ONCE 07/21/19 07/21/19 07/17/19 History predniSONE [Deltasone] 5 mg PO BID 07/21/19 07/21/19 07/20/19 History Active Medications: Generic Name Dose Route Start Last Admin Trade Name Freq PRN Reason Stop Dose Admin Acetaminophen 650 mg 07/21/19 21:15 Tylenol PO Q4H PRN Pain MILD(1-3)/Fever >100.5/PALOMARES Allopurinol 100 mg 07/21/19 22:00 07/22/19 10:26 Zyloprim PO 100 mg QDAY TAMMIE Administration Amlodipine Besylate 10 mg 07/21/19 22:00 07/22/19 10:26 Norvasc PO 10 mg DAILY TAMMIE Administration Famotidine 10 mg 07/21/19 22:00 07/22/19 21:49 Pepcid PO 10 mg BID TAMMIE Administration Hydromorphone HCl 0.25 mg 07/21/19 21:15 Dilaudid IV Q3H PRN Pain, Moderate (4-6) Daptomycin 800 mg/ Sodium 100 mls @ 200 mls/hr 07/22/19 12:00 Chloride IV Q48H TAMMIE Protocol Methylprednisolone Sodium Succinate 40 mg 07/21/19 22:00 07/23/19 07:16 Solu-Medrol IV 40 mg Q8HR TAMMIE Administration Metoclopramide HCl 10 mg 07/21/19 21:46 Reglan IV Q6H PRN Nausea And Vomiting Ondansetron HCl 4 mg 07/21/19 21:46 Zofran IV Q8H PRN Nausea And Vomiting Oxycodone/Acetaminophen 1 tab 07/21/19 21:15 Percocet 5/325 PO Q6H PRN Pain, Moderate (4-6) Prednisone 10 mg 07/21/19 22:00 07/22/19 10:26 Deltasone PO 10 mg QDAY TAMMIE Administration Sodium Chloride 10 ml 07/21/19 22:00 07/22/19 21:50 Sodium Chloride Flush Syringe 10 Ml IV 10 ml BID TAMMIE Administration Sodium Chloride 10 ml 07/21/19 21:46 07/23/19 07:16 Sodium Chloride Flush Syringe 10 Ml IV 10 ml PRN PRN Administration LINE FLUSH
[2019-07-23] MEDS: PEPCID PO SCH ×2 (12:07→21:26)
[2019-07-23] MEDS: DELTASONE PO SCH (12:08)
[2019-07-23] MEDS: ZYLOPRIM PO SCH (12:08)
[2019-07-23] MEDS: NORVASC PO SCH (12:08)
[2019-07-23] MEDS: SODIUM CHLORIDE FLUSH SYRINGE 10 ML IV SCH ×2 (12:09→21:26)
--- NOTE | 2019-07-23 12:24 | Progress Note ---
Assessment and Plan Cultures: BCx 07/21 - NGTD Assessment: 59 yo M PMHx HTN, CKD, gout admitted to the hospital with full body painful rash, body aches, sore throat, tongue swelling SOB admitted with acute kidney failure and possible red man syndrome. 1. Diffuse rash, eosinophilia: suspect DRESS with endorgan involvement - renal and liver. 2. ?vancomycin use - Patient denies being on any IV antibiotics recently. He states he follows up with an ankle and foot doctor and was recently given some oral medications for gout. Does not recall the name. Also, denies any indwelling PICC/midline. Admission CXR also did not show any indwelling lines. He has no clinical evidence of an infection that would require vancomycin 3. JENNY on CKD - now on HD, Vascath was placed here. He was not on dialysis prior to admission. 4. HTN 5. Gout Recs: - discontinued Daptomycin - ?DRESS with worsening renal function as well as transaminitis from a new drug. Patient reports starting some new medication for gout. ?allopurinol, especially since it is known to be associated with DRESS - OK to consider steroids from ID standpoint - follow up records and his medication list especially the new medication Josiah Dong MD, FACP [facility] C: [phone] O: [phone] F: [phone] Subjective Date of service: 07/23/19 Principal diagnosis: severe renal failure Interval history: No fever. Patient denies being on any IV antibiotics recently. He states he follows up with an ankle and foot doctor and was recently given some oral medications for gout. Does not recall the name. Also, denies any indwelling PICC/midline. Admission CXR also did not show any indwelling lines. Objective - Exam Narrative Exam: Physical Exam: Constitutional: Alert, cooperative. No acute distress Head, Ears, Nose: Normocephalic, atraumatic. External ears, nose normal Eyes: Conjunctivae/corneas clear. No icterus. No ptosis. Neck: Supple, no meningeal signs Oral: dentition fair, no thrush Cardiovascular: S1, S2 normal. Respiratory: Good air entry, clear to auscultation bilaterally GI: Soft, non-tender; bowel sounds normal. No peritoneal signs Musculoskeletal: No pedal edema, no cyanosis. HD cath + Skin: diffuse extensive rash all over Hem/Lymphatic: No palpable cervical or supraclavicular nodes. No lymphangitis Psych: Mood ok. Affect normal Neurological: Awake, alert, oriented. No gross abnormality - Constitutional Vitals: Vital Signs Temp Pulse Resp BP Pulse Ox 97.5 F L 87 18 140/97 96 07/23/19 08:08 07/23/19 04:53 07/23/19 08:08 07/23/19 12:08 07/23/19 04:53 Temperature -Last 24 Hours Temperature 97.5 F Temperature 98.4 F Temperature 98.2 F Temperature 97.9 F Temperature 98.0 F Temperature 98.0 F Temperature 98.4 F - Labs CBC & Chem 7: 07/23/19 07:07 07/23/19 07:07 Labs: Abnormal lab results 07/23/19 07/23/19 07/23/19 Range/Units 07:07 07:07 07:07 WBC 11.4 H (4.5-11.0) K/mm3 MCV 104 H (84-94) fl MCH 35 H (28-32) pg Plt Count 98 L (140-440) K/mm3 Lymph % (Auto) 10.7 L (13.4-35.0) % Seg Neutrophils % 81.4 H (40.0-70.0) % Seg Neutrophils # 8.6 H (1.8-7.7) K/mm3 Chloride 93.8 L (98-107) mmol/L BUN 57 H (9-20) mg/dL Creatinine 11.2 H (0.8-1.5) mg/dL Glucose 138 H (75-100) mg/dL Calcium 7.4 L (8.4-10.2) mg/dL Phosphorus 8.10 H (2.5-4.5) mg/dL AST 75 H (5-40) units/L ALT 185 H (7-56) units/L Alkaline Phosphatase 143 H (35-129) units/L Total Protein 5.8 L (6.3-8.2) g/dL Albumin 2.9 L (3.9-5) g/dL
--- NOTE | 2019-07-23 13:34 | Progress Note ---
Assessment and Plan Assessment and plan: -- Diffuse Rash and nonspecific skin eruption Current Visit: Yes Status: Acute presumed "Lucie" syndrome secondary to vancomycin After detailed history taking patient denies taking vancomycin ID evaluation noted and appreciated, --DRESS ID feels As pt has diffuse rash ,eosinophilia , end organ involvement[ acute renal failure] Possible DRESS [Drug Rash Eosinophilia and Systemic Symptoms] patient is on allopurinol with history of gout, allopurinol[may be the cause of this rash] Continue steroids and supportive care --Acute renal failure Current Visit: Yes Status: Acute Acute on chronic renal failure sec to ATN/vasomotor nephropathy Nephrology evaluated the patient, initiated hemodialysis Continue HD per schedule, avoid nephrotoxins --Hyperkalemia Current Visit: Yes Status: Acute correction per protocol, hemodialysis per schedule --Transaminitis ;Elevated liver enzymes Current Visit: Yes Status: Acute Elevated liver enzymes Hepatitis profile ordered -- Metabolic acidosis Current Visit: Yes Status: Acute Secondary to severe uremia Hopefully should correct with hemodialysis --Hypertension; Current Visit: Yes Status: Chronic Continue antihypertensives, when necessary hydralazine --h/o Gout Current Visit: Yes Status: Inactive . Plan to address problem: Stable, Continue allopurinol -Severe malnutrition; hypoalbuminemia Nutrition supplements, supportive care -- DVT prophylaxis Current Visit: Yes Status: Acute On heparin 5000 every 12 and GI prophylaxis Monitor closely and adjust management as needed Center recommendations noted and appreciated Plan of care is reviewed with the patient and his nurse History Interval history: Patient Seen and examined medical records reviewed Patient has diffuse rash, maybe minimal improvement Nephrology initiated hemodialysis Patient is alert and awake Vital signs reviewed Hospitalist Physical - Constitutional Vitals: Temp Pulse Resp BP Pulse Ox 97.5 F L 80 18 140/97 96 07/23/19 08:08 07/23/19 12:49 07/23/19 08:08 07/23/19 12:08 07/23/19 04:53 General appearance: Present: no acute distress, well-nourished, other (diffuse rash) - EENT Eyes: Present: PERRL, EOM intact - Neck Neck: Present: supple, normal ROM - Respiratory Respiratory effort: normal Respiratory: bilateral: diminished, negative: rales, rhonchi, wheezing - Cardiovascular Rhythm: regular Heart Sounds: Present: S1 & S2 - Extremities Extremities: no ischemia, No edema - Abdominal General gastrointestinal: soft, non-tender, non-distended, normal bowel sounds - Integumentary Integumentary: Present: clear, warm - Psychiatric Psychiatric: appropriate mood/affect, cooperative - Neurologic Neurologic: CNII-XII intact, moves all extremities Results - Labs CBC & Chem 7: 07/23/19 07:07 07/23/19 07:07 Labs: Laboratory Last Values WBC 11.4 K/mm3 (4.5-11.0) H 07/23/19 07:07 RBC 3.71 M/mm3 (3.65-5.03) 07/23/19 07:07 Hgb 12.9 gm/dl (11.8-15.2) 07/23/19 07:07 Hct 38.5 % (35.5-45.6) D 07/23/19 07:07 MCV 104 fl (84-94) H 07/23/19 07:07 MCH 35 pg (28-32) H 07/23/19 07:07 MCHC 34 % (32-34) 07/23/19 07:07 RDW 14.9 % (13.2-15.2) 07/23/19 07:07 Plt Count 98 K/mm3 (140-440) L 07/23/19 07:07 Lymph % (Auto) 10.7 % (13.4-35.0) L 07/23/19 07:07 Will % (Auto) 5.5 % (0.0-7.3) 07/23/19 07:07 Eos % (Auto) 1.9 % (0.0-4.3) 07/23/19 07:07 Baso % (Auto) 0.8 % (0.0-1.8) 07/23/19 07:07 Lymph # 1.2 K/mm3 (1.2-5.4) 07/23/19 07:07 Will # 0.6 K/mm3 (0.0-0.8) 07/23/19 07:07 Eos # 0.2 K/mm3 (0.0-0.4) 07/23/19 07:07 Baso # 0.1 K/mm3 (0.0-0.1) 07/23/19 07:07 Seg Neutrophils % 81.4 % (40.0-70.0) H 07/23/19 07:07 Seg Neutrophils # 8.6 K/mm3 (1.8-7.7) H 07/23/19 07:07 VBG pH 7.179 (7.320-7.420) L* 07/21/19 15:18 Sodium 138 mmol/L (137-145) 07/23/19 07:07 Potassium 4.6 mmol/L (3.6-5.0) 07/23/19 07:07 Chloride 93.8 mmol/L (98-107) L 07/23/19 07:07 Carbon Dioxide 23 mmol/L (22-30) 07/23/19 07:07 26 mmol/L 07/23/19 07:07 BUN 57 mg/dL (9-20) H 07/23/19 07:07 11.2 mg/dL (0.8-1.5) H 07/23/19 07:07 Estimated GFR 6 ml/min 07/23/19 07:07 5 % 07/23/19 07:07 Glucose 138 mg/dL (75-100) H 07/23/19 07:07 5.1 % (4-6) 07/21/19 13:50 Lactic Acid 1.90 mmol/L (0.7-2.0) 07/21/19 15:18 Calcium 7.4 mg/dL (8.4-10.2) L 07/23/19 07:07 Phosphorus 8.10 mg/dL (2.5-4.5) H 07/23/19 07:07 Magnesium 1.80 mg/dL (1.7-2.3) 07/22/19 06:25 0.40 mg/dL (0.1-1.2) 07/23/19 07:07 0.2 mg/dL (0-0.2) 07/23/19 07:07 0.2 mg/dL 07/23/19 07:07 AST 75 units/L (5-40) H 07/23/19 07:07 ALT 185 units/L (7-56) H 07/23/19 07:07 143 units/L (35-129) H 07/23/19 07:07 415 units/L (91-180) H 07/22/19 10:10 100 units/L (55-170) 07/22/19 06:25 5.8 g/dL (6.3-8.2) L 07/23/19 07:07 2.9 g/dL (3.9-5) L 07/23/19 07:07 1.0 % 07/23/19 07:07 TSH 0.753 mlU/mL (0.270-4.200) 07/21/19 13:50 PTH Intact 255.0 pg/mL (15-65) H 07/22/19 06:25 Hepatitis A IgM Ab Non-reactive (NonReactive) 07/21/19 13:50 Hep Bs Antigen Non-reactive (Negative) 07/21/19 13:50 Hep B Core IgM Ab Non-reactive (NonReactive) 07/21/19 13:50 Non-reactive (NonReactive) 07/21/19 13:50 HIV 1&2 Antibody Rapid Non react (Non React) 07/22/19 10:10 Non react (Non React) 07/22/19 10:10 None seen 07/22/19 10:10 Active Medications - Current Medications Current Medications: Generic Name Dose Route Start Last Admin Trade Name Freq PRN Reason Stop Dose Admin Acetaminophen 650 mg 07/21/19 21:15 Tylenol PO Q4H PRN Pain MILD(1-3)/Fever >100.5/PALOMARES Amlodipine Besylate 10 mg 07/21/19 22:00 07/23/19 12:08 Norvasc PO 10 mg DAILY TAMMIE Administration Famotidine 10 mg 07/21/19 22:00 07/23/19 12:07 Pepcid PO 10 mg BID TAMMIE Administration Hydromorphone HCl 0.25 mg 07/21/19 21:15 Dilaudid IV Q3H PRN Pain, Moderate (4-6) Methylprednisolone Sodium Succinate 40 mg 07/21/19 22:00 07/23/19 07:16 Solu-Medrol IV 40 mg Q8HR TAMMIE Administration Metoclopramide HCl 10 mg 07/21/19 21:46 Reglan IV Q6H PRN Nausea And Vomiting Ondansetron HCl 4 mg 07/21/19 21:46 Zofran IV Q8H PRN Nausea And Vomiting Oxycodone/Acetaminophen 1 tab 07/21/19 21:15 Percocet 5/325 PO Q6H PRN Pain, Moderate (4-6) Prednisone 10 mg 07/21/19 22:00 07/23/19 12:08 Deltasone PO 10 mg QDAY TAMMIE Administration Sodium Chloride 10 ml 07/21/19 22:00 07/23/19 12:09 Sodium Chloride Flush Syringe 10 Ml IV 10 ml BID TAMMIE Administration Sodium Chloride 10 ml 07/21/19 21:46 07/23/19 07:16 Sodium Chloride Flush Syringe 10 Ml IV 10 ml PRN PRN Administration LINE FLUSH
[2019-07-24 04:56] LABS: Basophils % (Auto) 0.3 % (0.0-1.8); Eosinophils # (Auto) 0.2 K/mm3 (0.0-0.4); Eosinophils % (Auto) 1.5 % (0.0-4.3); Hematocrit 34.9 % (35.5-45.6); Hemoglobin 11.7 gm/dl (11.8-15.2); Lymphocytes # (Auto) 0.7 K/mm3 (1.2-5.4); Lymphocytes % (Auto) 6.2 % (13.4-35.0); Mean Corpuscular HGB Conc 34 % (32-34); Mean Corpuscular Volume 106 fl (84-94); Monocytes # (Auto) 0.8 K/mm3 (0.0-0.8); Red Cell Distribution Width 14.9 % (13.2-15.2)
[2019-07-24 05:09] LABS: Platelet Count 93 K/mm3 (140-440)
[2019-07-24] MEDS: SOLU-Medrol IV SCH ×3 (05:22→21:28)
[2019-07-24 05:25] LABS: Calcium 6.6 mg/dL (8.4-10.2)
--- NOTE | 2019-07-24 08:23 | Progress Note ---
Assessment and Plan Diffuse Rash - possibly secondary to DRESS Acute Kidney Injury on CKD, exact etiology of acute component unclear, ? GN/vasculitis etiology, underlying hx of CKD (exact stage unknown), no obstruction Hyperkalemia High Anion Gap Metabolic Acidosis Essential HTN Hx of Gout Plan: - Renal function reviewed, SCr level increased to 13.7 today, yesterday's SCr level was 11.2 - No acute indication for HD today - HD tomorrow for clearance only - S/p 2nd HD on 07/22/19 for clearance only, initiated on HD on 07/21/19 - Assess need for HD on daily basis - Monitor for signs of renal recovery - Obtain GN work up, may need kidney biopsy - Hepatitis panel and HIV negative - LJ, ANCA, Anti-GBM, C3, C4, SPEP pending - Avoid ACEI/ARBs in setting of severe renal failure - ID on board, switched to daptomycin, suspect DRESS with endorgan involvement renal and liver, stopped allopurinol, f/u recs - On steroids - Avoid NSAIDs - Renally dose meds - [place] Catheter: No - Renal plan d/w Dr Chavis Subjective Date of service: 07/24/19 Principal diagnosis: severe renal failure Interval history: Pt seen in bed, states he continues to have mouth pain and intermittent dizziness, denies shortness of breath. Pt also states he has skin rash all over his body including genital area, no family at bedside Objective - Vital Signs Vital signs: Vital Signs - 12hr 07/23/19 07/24/19 21:39 04:52 Temperature 97.8 F 98.7 F Pulse Rate 72 75 Respiratory 16 16 Rate Blood Pressure 138/96 129/86 O2 Sat by Pulse 100 98 Oximetry - General Appearance General appearance: well-developed EENT: ATNC Neck: no JVD Respiratory: Present: Decreased Breath Sounds Cardiology: regular, S1S2, other (ACCESS: Right IJ Vas Catheter intact) Gastrointestinal: normoactive bowel sounds Integumentary: rash (diffuse rash with skin peeling over entire body) Neurologic: alert and oriented x3 Musculoskeletal: other (no edema to BLE) Psychiatric: cooperative - Lab 07/24/19 04:05 07/24/19 04:05 Most recent lab results Calcium 6.6 mg/dL (8.4-10.2) L 07/24/19 04:05 Phosphorus 8.00 mg/dL (2.5-4.5) H 07/24/19 04:05 Magnesium 1.80 mg/dL (1.7-2.3) 07/22/19 06:25 Medications & Allergies - Medications Allergies/Adverse Reactions: Allergies Unable to Assess Allergy (Verified 07/21/19 22:27) . Home Medications: Home Medications Medication Instructions Recorded Confirmed Last Taken Type Allopurinol [Zyloprim] 100 mg PO QDAY 07/21/19 07/21/19 07/20/19 History Allopurinol [Zyloprim] 300 mg PO QDAY 07/21/19 07/21/19 07/20/19 History Colchicine 0.6 mg PO BID 07/21/19 07/21/19 07/20/19 History Meloxicam [Mobic] 15 mg PO QDAY 07/21/19 07/21/19 07/20/19 History amLODIPine [Norvasc] 10 mg PO DAILY 07/21/19 07/21/19 07/20/19 History methylPREDNISolone [Medrol] 4 mg PO ONCE 07/21/19 07/21/19 07/17/19 History predniSONE [Deltasone] 5 mg PO BID 07/21/19 07/21/19 07/20/19 History Active Medications: Generic Name Dose Route Start Last Admin Trade Name Freq PRN Reason Stop Dose Admin Acetaminophen 650 mg 07/21/19 21:15 Tylenol PO Q4H PRN Pain MILD(1-3)/Fever >100.5/PALOMARES Amlodipine Besylate 10 mg 07/21/19 22:00 07/23/19 12:08 Norvasc PO 10 mg DAILY TAMMIE Administration Famotidine 10 mg 07/21/19 22:00 07/23/19 21:26 Pepcid PO 10 mg BID TAMMIE Administration Hydromorphone HCl 0.25 mg 07/21/19 21:15 Dilaudid IV Q3H PRN Pain, Moderate (4-6) Methylprednisolone Sodium Succinate 40 mg 07/23/19 22:00 07/24/19 05:22 Solu-Medrol IV 40 mg Q8HR TAMMIE Administration Metoclopramide HCl 10 mg 07/21/19 21:46 Reglan IV Q6H PRN Nausea And Vomiting Ondansetron HCl 4 mg 07/21/19 21:46 Zofran IV Q8H PRN Nausea And Vomiting Oxycodone/Acetaminophen 1 tab 07/21/19 21:15 Percocet 5/325 PO Q6H PRN Pain, Moderate (4-6) Sodium Chloride 10 ml 07/21/19 22:00 07/23/19 21:26 Sodium Chloride Flush Syringe 10 Ml IV 10 ml BID TAMMIE Administration Sodium Chloride 10 ml 07/21/19 21:46 07/23/19 07:16 Sodium Chloride Flush Syringe 10 Ml IV 10 ml PRN PRN Administration LINE FLUSH
[2019-07-24] MEDS: PEPCID PO SCH ×2 (09:23→21:28)
[2019-07-24] MEDS: SODIUM CHLORIDE FLUSH SYRINGE 10 ML IV SCH ×2 (09:24→21:28)
[2019-07-24] MEDS: NORVASC PO SCH (09:24)
[2019-07-24] MEDS ORDERED: REGLAN IV PRN (13:00)
--- NOTE | 2019-07-24 14:01 | Progress Note ---
Assessment and Plan Cultures: BCx 07/21 - NGTD Assessment: 59 yo M PMHx HTN, CKD, gout admitted to the hospital with full body painful rash, body aches, sore throat, tongue swelling SOB admitted with acute kidney failure and possible red man syndrome. 1. Diffuse rash, eosinophilia: suspect DRESS with endorgan involvement - renal and liver. Allopurinol discontinued. On steroids. 2. ?vancomycin use - Patient denies being on any IV antibiotics recently. He states he follows up with an ankle and foot doctor and was recently given some oral medications for gout. Does not recall the name. Also, denies any indwelling PICC/midline. Admission CXR also did not show any indwelling lines. He has no clinical evidence of an infection that would require vancomycin. continue off abx. 3. JENNY on advanced CKD - now on HD, Vascath was placed here. He was not on dialysis prior to admission. 4. HTN 5. Gout Recs: - on steroids - continue off abx Josiah Dong MD, FACP [facility] ([facility]) C: [phone] O: [phone] F: [phone] Subjective Date of service: 07/24/19 Principal diagnosis: severe renal failure Interval history: No fever. Feeling a little better. no new complaints. Objective - Exam Narrative Exam: Physical Exam: Constitutional: Alert, cooperative. No acute distress Head, Ears, Nose: Normocephalic, atraumatic. External ears, nose normal Eyes: Conjunctivae/corneas clear. No icterus. No ptosis. Neck: Supple, no meningeal signs Oral: dentition fair, no thrush Cardiovascular: S1, S2 normal. Respiratory: Good air entry, clear to auscultation bilaterally GI: Soft, non-tender; bowel sounds normal. No peritoneal signs Musculoskeletal: No pedal edema, no cyanosis. HD cath + Skin: diffuse extensive scaly rash all over Hem/Lymphatic: No palpable cervical or supraclavicular nodes. No lymphangitis Psych: Mood ok. Affect normal Neurological: Awake, alert, oriented. No gross abnormality - Constitutional Vitals: Vital Signs Temp Pulse Resp BP Pulse Ox 97.8 F 76 14 138/92 98 07/24/19 11:32 07/24/19 11:32 07/24/19 11:32 07/24/19 11:32 07/24/19 11:32 Temperature -Last 24 Hours Temperature 97.8 F Temperature 98.7 F Temperature 97.8 F Temperature 97.7 F - Labs CBC & Chem 7: 07/24/19 04:05 07/24/19 04:05 Labs: Abnormal lab results 07/24/19 07/24/19 Range/Units 04:05 04:05 WBC 12.0 H (4.5-11.0) K/mm3 RBC 3.30 L (3.65-5.03) M/mm3 Hgb 11.7 L (11.8-15.2) gm/dl Hct 34.9 L (35.5-45.6) % MCV 106 H (84-94) fl MCH 35 H (28-32) pg Plt Count 93 L (140-440) K/mm3 Lymph % (Auto) 6.2 L (13.4-35.0) % Lymph # 0.7 L (1.2-5.4) K/mm3 Seg Neutrophils % 85.0 H (40.0-70.0) % Seg Neutrophils # 10.2 H (1.8-7.7) K/mm3 Sodium 135 L (137-145) mmol/L Chloride 92.4 L (98-107) mmol/L Carbon Dioxide 21 L (22-30) mmol/L BUN 81 H (9-20) mg/dL Creatinine 13.7 H (0.8-1.5) mg/dL Glucose 131 H (75-100) mg/dL Calcium 6.6 L (8.4-10.2) mg/dL Phosphorus 8.00 H (2.5-4.5) mg/dL
--- NOTE | 2019-07-24 16:18 | Progress Note ---
Assessment and Plan Assessment and plan: -- Diffuse Rash and nonspecific skin eruption Current Visit: Yes Status: Acute Unlikely "Lucie" syndrome patient was not on vancomycin ?Anshul Ken syndrome ID evaluated and feels it is DRESS syndrome --DRESS ID feels As pt has diffuse rash ,eosinophilia , end organ involvement[ acute renal failure] Possible DRESS [Drug Rash Eosinophilia and Systemic Symptoms] patient takes allopurinol with history of gout, allopurinol[may be the cause of this rash] allopurinol held Continue steroids and supportive care --Acute renal failure Current Visit: Yes Status: Acute Acute on chronic renal failure sec to ATN/vasomotor nephropathy Nephrology evaluated the patient, initiated hemodialysis Continue HD per schedule, avoid nephrotoxins --Hyperkalemia Current Visit: Yes Status: Acute correction per protocol, hemodialysis per schedule --Transaminitis ;Elevated liver enzymes Current Visit: Yes Status: Acute Elevated liver enzymes Hepatitis profile ordered -- Metabolic acidosis Current Visit: Yes Status: Acute Secondary to severe uremia Hopefully should correct with hemodialysis --Hypertension; Current Visit: Yes Status: Chronic Continue antihypertensives, when necessary hydralazine --h/o Gout Current Visit: Yes Status: Inactive . Plan to address problem: hold allopurinol in view of rash -Severe malnutrition; hypoalbuminemia Nutrition supplements, supportive care -- DVT prophylaxis Current Visit: Yes Status: Acute On heparin 5000 every 12 and GI prophylaxis --DC planning per case management; outpatient HD scheduling Possible home with home health/placement when medically stable Monitor closely and adjust management as needed Consults recommendations noted and appreciated Plan of care is reviewed with the patient and his nurse History Interval history: Patient seen and examined medical records reviewed Patient is in mild distress with severe rash mainly on the face Mucous membranes involvement complaints of soreness of mouth and throat Rash on the trunk mild improvement ID following, on high-dose steroids Vital signs noted Hospitalist Physical - Constitutional Vitals: Temp Pulse Resp BP Pulse Ox 97.8 F 76 14 138/92 98 07/24/19 11:32 07/24/19 11:32 07/24/19 11:32 07/24/19 11:32 07/24/19 11:32 General appearance: Present: no acute distress, well-nourished, other (diffuse rash/face/mucous membranes/all over the body) - EENT Eyes: Present: PERRL, EOM intact - Neck Neck: Present: supple, normal ROM - Respiratory Respiratory effort: normal Respiratory: bilateral: diminished, negative: rales, rhonchi, wheezing - Cardiovascular Rhythm: regular Heart Sounds: Present: S1 & S2 - Extremities Extremities: no ischemia, No edema - Abdominal General gastrointestinal: soft, non-tender, non-distended, normal bowel sounds - Integumentary Integumentary: Present: rash - Psychiatric Psychiatric: appropriate mood/affect, cooperative - Neurologic Neurologic: moves all extremities Results - Labs CBC & Chem 7: 07/24/19 04:05 07/24/19 04:05 Labs: Laboratory Last Values WBC 12.0 K/mm3 (4.5-11.0) H 07/24/19 04:05 RBC 3.30 M/mm3 (3.65-5.03) L 07/24/19 04:05 Hgb 11.7 gm/dl (11.8-15.2) L 07/24/19 04:05 Hct 34.9 % (35.5-45.6) L 07/24/19 04:05 MCV 106 fl (84-94) H 07/24/19 04:05 MCH 35 pg (28-32) H 07/24/19 04:05 MCHC 34 % (32-34) 07/24/19 04:05 RDW 14.9 % (13.2-15.2) 07/24/19 04:05 Plt Count 93 K/mm3 (140-440) L 07/24/19 04:05 Lymph % (Auto) 6.2 % (13.4-35.0) L 07/24/19 04:05 Barren % (Auto) 7.0 % (0.0-7.3) 07/24/19 04:05 Eos % (Auto) 1.5 % (0.0-4.3) 07/24/19 04:05 Baso % (Auto) 0.3 % (0.0-1.8) 07/24/19 04:05 Lymph # 0.7 K/mm3 (1.2-5.4) L 07/24/19 04:05 Barren # 0.8 K/mm3 (0.0-0.8) 07/24/19 04:05 Eos # 0.2 K/mm3 (0.0-0.4) 07/24/19 04:05 Baso # 0.0 K/mm3 (0.0-0.1) 07/24/19 04:05 Seg Neutrophils % 85.0 % (40.0-70.0) H 07/24/19 04:05 Seg Neutrophils # 10.2 K/mm3 (1.8-7.7) H 07/24/19 04:05 VBG pH 7.179 (7.320-7.420) L* 07/21/19 15:18 Sodium 135 mmol/L (137-145) L 07/24/19 04:05 Potassium 4.8 mmol/L (3.6-5.0) 07/24/19 04:05 Chloride 92.4 mmol/L (98-107) L 07/24/19 04:05 Carbon Dioxide 21 mmol/L (22-30) L 07/24/19 04:05 26 mmol/L 07/24/19 04:05 BUN 81 mg/dL (9-20) H 07/24/19 04:05 13.7 mg/dL (0.8-1.5) H 07/24/19 04:05 Estimated GFR 4 ml/min 07/24/19 04:05 6 % 07/24/19 04:05 Glucose 131 mg/dL (75-100) H 07/24/19 04:05 5.1 % (4-6) 07/21/19 13:50 Lactic Acid 1.90 mmol/L (0.7-2.0) 07/21/19 15:18 Calcium 6.6 mg/dL (8.4-10.2) L 07/24/19 04:05 Phosphorus 8.00 mg/dL (2.5-4.5) H 07/24/19 04:05 Magnesium 1.80 mg/dL (1.7-2.3) 07/22/19 06:25 0.40 mg/dL (0.1-1.2) 07/23/19 07:07 0.2 mg/dL (0-0.2) 07/23/19 07:07 0.2 mg/dL 07/23/19 07:07 AST 75 units/L (5-40) H 07/23/19 07:07 ALT 185 units/L (7-56) H 07/23/19 07:07 143 units/L (35-129) H 07/23/19 07:07 415 units/L (91-180) H 07/22/19 10:10 100 units/L (55-170) 07/22/19 06:25 5.8 g/dL (6.3-8.2) L 07/23/19 07:07 2.9 g/dL (3.9-5) L 07/23/19 07:07 1.0 % 07/23/19 07:07 TSH 0.753 mlU/mL (0.270-4.200) 07/21/19 13:50 PTH Intact 255.0 pg/mL (15-65) H 07/22/19 06:25 Hepatitis A IgM Ab Non-reactive (NonReactive) 07/21/19 13:50 Hep Bs Antigen Non-reactive (Negative) 07/21/19 13:50 Hep B Core IgM Ab Non-reactive (NonReactive) 07/21/19 13:50 Non-reactive (NonReactive) 07/21/19 13:50 HIV 1&2 Antibody Rapid Non react (Non React) 07/22/19 10:10 Non react (Non React) 07/22/19 10:10 None seen 07/22/19 10:10 Active Medications - Current Medications Current Medications: Generic Name Dose Route Start Last Admin Trade Name Freq PRN Reason Stop Dose Admin Acetaminophen 650 mg 07/21/19 21:15 Tylenol PO Q4H PRN Pain MILD(1-3)/Fever >100.5/PALOMARES Amlodipine Besylate 10 mg 07/21/19 22:00 07/24/19 09:24 Norvasc PO 10 mg DAILY TAMMIE Administration Famotidine 10 mg 07/21/19 22:00 07/24/19 09:23 Pepcid PO 10 mg BID TAMMIE Administration Hydromorphone HCl 0.25 mg 07/21/19 21:15 Dilaudid IV Q3H PRN Pain, Moderate (4-6) Lidocaine HCl 15 ml 07/24/19 20:00 Magic Mouthwash PO TID TAMMIE Methylprednisolone Sodium Succinate 40 mg 07/23/19 22:00 07/24/19 15:24 Solu-Medrol IV 40 mg Q8HR TAMMIE Administration Metoclopramide HCl 5 mg 07/24/19 13:00 Reglan IV Q6H PRN Nausea And Vomiting Ondansetron HCl 4 mg 07/21/19 21:46 Zofran IV Q8H PRN Nausea And Vomiting Oxycodone/Acetaminophen 1 tab 07/21/19 21:15 Percocet 5/325 PO Q6H PRN Pain, Moderate (4-6) Sodium Chloride 10 ml 07/21/19 22:00 07/24/19 09:24 Sodium Chloride Flush Syringe 10 Ml IV 10 ml BID TAMMIE Administration Sodium Chloride 10 ml 07/21/19 21:46 07/23/19 07:16 Sodium Chloride Flush Syringe 10 Ml IV 10 ml PRN PRN Administration LINE FLUSH
[2019-07-24] MEDS: MAGIC MOUTHWASH PO SCH (21:27)
[2019-07-25] MEDS: SOLU-Medrol IV SCH ×3 (05:14→22:26)
[2019-07-25 05:27] LABS: Basophils # (Auto) 0.1 K/mm3 (0.0-0.1); Basophils % (Auto) 0.4 % (0.0-1.8); Eosinophils # (Auto) 0.1 K/mm3 (0.0-0.4); Eosinophils % (Auto) 1.1 % (0.0-4.3); Hemoglobin 11.8 gm/dl (11.8-15.2); Lymphocytes # (Auto) 0.9 K/mm3 (1.2-5.4); Lymphocytes % (Auto) 6.8 % (13.4-35.0); Mean Corpuscular HGB Conc 34 % (32-34); Mean Corpuscular Volume 105 fl (84-94); Monocytes # (Auto) 0.7 K/mm3 (0.0-0.8); Monocytes % (Auto) 5.4 % (0.0-7.3); Red Blood Count 3.35 M/mm3 (3.65-5.03); Red Cell Distribution Width 14.7 % (13.2-15.2)
[2019-07-25 05:35] LABS: Platelet Count 89 K/mm3 (140-440)
[2019-07-25 05:46] LABS: Calcium 6.3 mg/dL (8.4-10.2)
--- NOTE | 2019-07-25 07:19 | Progress Note ---
Assessment and Plan Assessment: Diffuse Rash - possibly secondary to DRESS Acute Kidney Injury on CKD, exact etiology of acute component unclear, ? GN/vasculitis etiology, underlying hx of CKD (exact stage unknown), no obstruction Hyperkalemia High Anion Gap Metabolic Acidosis Essential HTN Hx of Gout Plan: - Renal function reviewed, SCr level increased to 15.4 today - Hemodialysis today for clearance mainly - S/p 2nd HD on 07/22/19 for clearance only, initiated on HD on 07/21/19 - Obtain GN work up, may need kidney biopsy - Hepatitis panel and HIV negative - LJ, ANCA, Anti-GBM, C3, C4, SPEP pending - Avoid ACEI/ARBs in setting of severe renal failure - On [place] Daptomycin, suspect DRESS with endorgan involvement renal and liver, allopurinol discontinued, ID onboard - On steroids - Avoid NSAIDs - Renally dose medications - Obtain daily weights - CM onboard for outpatient HD arrangement - Assess dialysis needs daily Subjective Date of service: 07/25/19 Principal diagnosis: severe renal failure Interval history: Patient seen lying in bed. Reviewed renal plan of care. Objective - Vital Signs Vital signs: Vital Signs - 12hr 07/24/19 07/25/19 21:47 05:01 Temperature 97.5 F L 97.8 F Pulse Rate 71 69 Respiratory 16 16 Rate Blood Pressure 136/88 135/85 O2 Sat by Pulse 99 98 Oximetry - General Appearance General appearance: well-developed, appears stated age EENT: ATNC, PERRL Neck: no JVD, supple Respiratory: Present: Decreased Breath Sounds Cardiology: regular, S1S2 Gastrointestinal: normoactive bowel sounds Integumentary: warm and dry, other (Has diffuse rash over body) Neurologic: alert and oriented x3 Musculoskeletal: other (No edema) - Lab 07/25/19 04:06 07/25/19 04:06 Most recent lab results Calcium 6.3 mg/dL (8.4-10.2) L 07/25/19 04:06 Phosphorus 8.50 mg/dL (2.5-4.5) H 07/25/19 04:06 Magnesium 1.80 mg/dL (1.7-2.3) 07/22/19 06:25 Medications & Allergies - Medications Allergies/Adverse Reactions: Allergies Unable to Assess Allergy (Verified 07/21/19 22:27) . Home Medications: Home Medications Medication Instructions Recorded Confirmed Last Taken Type Allopurinol [Zyloprim] 100 mg PO QDAY 07/21/19 07/21/19 07/20/19 History Allopurinol [Zyloprim] 300 mg PO QDAY 07/21/19 07/21/19 07/20/19 History Colchicine 0.6 mg PO BID 07/21/19 07/21/19 07/20/19 History Meloxicam [Mobic] 15 mg PO QDAY 07/21/19 07/21/19 07/20/19 History amLODIPine [Norvasc] 10 mg PO DAILY 07/21/19 07/21/19 07/20/19 History methylPREDNISolone [Medrol] 4 mg PO ONCE 07/21/19 07/21/19 07/17/19 History predniSONE [Deltasone] 5 mg PO BID 07/21/19 07/21/19 07/20/19 History Active Medications: Generic Name Dose Route Start Last Admin Trade Name Freq PRN Reason Stop Dose Admin Acetaminophen 650 mg 07/21/19 21:15 Tylenol PO Q4H PRN Pain MILD(1-3)/Fever >100.5/PALOMARES Amlodipine Besylate 10 mg 07/21/19 22:00 07/24/19 09:24 Norvasc PO 10 mg DAILY TAMMIE Administration Famotidine 10 mg 07/21/19 22:00 07/24/19 21:28 Pepcid PO 10 mg BID TAMMIE Administration Hydromorphone HCl 0.25 mg 07/21/19 21:15 Dilaudid IV Q3H PRN Pain, Moderate (4-6) Lidocaine HCl 15 ml 07/24/19 20:00 07/24/19 21:27 Magic Mouthwash PO 15 ml TID TAMMIE Administration Methylprednisolone Sodium Succinate 40 mg 07/23/19 22:00 07/25/19 05:14 Solu-Medrol IV 40 mg Q8HR TAMMIE Administration Metoclopramide HCl 5 mg 07/24/19 13:00 Reglan IV Q6H PRN Nausea And Vomiting Ondansetron HCl 4 mg 07/21/19 21:46 Zofran IV Q8H PRN Nausea And Vomiting Oxycodone/Acetaminophen 1 tab 07/21/19 21:15 Percocet 5/325 PO Q6H PRN Pain, Moderate (4-6) Sodium Chloride 10 ml 07/21/19 22:00 07/24/19 21:28 Sodium Chloride Flush Syringe 10 Ml IV 10 ml BID TAMMIE Administration Sodium Chloride 10 ml 07/21/19 21:46 07/23/19 07:16 Sodium Chloride Flush Syringe 10 Ml IV 10 ml PRN PRN Administration LINE FLUSH
[2019-07-25 08:39] LABS: Albumin 2.9 g/dL (3.9-5); Bilirubin,Direct 0.3 mg/dL (0-0.2)
--- NOTE | 2019-07-25 11:02 | Event Note ---
Date: 07/25/19 NPO after MN except for sips of water with meds. Plan for permcath tomorrow.
[2019-07-25] MEDS: MAGIC MOUTHWASH PO SCH ×3 (14:16→20:59)
[2019-07-25] MEDS: SODIUM CHLORIDE FLUSH SYRINGE 10 ML IV SCH ×2 (14:16→22:26)
[2019-07-25] MEDS: NORVASC PO SCH (14:16)
[2019-07-25] MEDS: PEPCID PO SCH ×2 (14:16→22:26)
[2019-07-25] MEDS ORDERED: NACL 0.9 (PRIMING MACHINE ONLY DIALYSIS) MC ONE (14:32)
--- NOTE | 2019-07-25 16:11 | Progress Note ---
Assessment and Plan Cultures: BCx 07/21 - NGTD Assessment: 59 yo M PMHx HTN, CKD, gout admitted to the hospital with full body painful rash, body aches, sore throat, tongue swelling SOB admitted with acute kidney failure and possible red man syndrome. 1. Diffuse rash, eosinophilia: suspect DRESS with endorgan involvement - renal and liver. Allopurinol discontinued. On steroids. 2. ?vancomycin use - I also confirmed with his daughter today, patient was not on any antibiotics IV or PO prior to admission. So no need for any antibiotics from ID standpoint. Blood cultures here have remained negative. 3. JENNY on advanced CKD - now on HD, Vascath was placed here. He was not on dialysis prior to admission. 4. HTN 5. Gout Recs: - on steroids for possible DRESS - monitor rash, if worsens, may need to transfer to [facility] - continue off abx ID will sign off. Please call with questions. Josiah Dong MD, FACP [facility] ([facility]) C: [phone] O: [phone] F: [phone] Subjective Date of service: 07/25/19 Principal diagnosis: severe renal failure Interval history: No fever. Daughter at bedside, brought all his home medications. Rash is present, same to slowly improving Objective - Exam Narrative Exam: Physical Exam: Constitutional: Alert, cooperative. No acute distress Head, Ears, Nose: Normocephalic, atraumatic. External ears, nose normal Eyes: Conjunctivae/corneas clear. No icterus. No ptosis. Neck: Supple, no meningeal signs Oral: dentition fair, no thrush Cardiovascular: S1, S2 normal. Respiratory: Good air entry, clear to auscultation bilaterally GI: Soft, non-tender; bowel sounds normal. No peritoneal signs Musculoskeletal: No pedal edema, no cyanosis. HD cath + Skin: diffuse extensive scaly erythematous rash all over Hem/Lymphatic: No palpable cervical or supraclavicular nodes. No lymphangitis Psych: Mood ok. Affect normal Neurological: Awake, alert, oriented. No gross abnormality - Constitutional Vitals: Vital Signs Temp Pulse Resp BP Pulse Ox 98 F 77 18 134/94 98 07/25/19 12:55 07/25/19 14:16 07/25/19 12:55 07/25/19 14:16 07/25/19 05:01 Temperature -Last 24 Hours Temperature 98 F Temperature 97.8 F Temperature 97.8 F Temperature 97.5 F Temperature 97.5 F - Labs CBC & Chem 7: 07/25/19 04:06 07/25/19 04:06 Labs: Abnormal lab results 07/25/19 07/25/19 07/25/19 Range/Units 04:06 04:06 04:06 WBC 13.2 H (4.5-11.0) K/mm3 RBC 3.35 L (3.65-5.03) M/mm3 Hct 35.0 L (35.5-45.6) % MCV 105 H (84-94) fl MCH 35 H (28-32) pg Plt Count 89 L (140-440) K/mm3 Lymph % (Auto) 6.8 L (13.4-35.0) % Lymph # 0.9 L (1.2-5.4) K/mm3 Seg Neutrophils % 86.3 H (40.0-70.0) % Seg Neutrophils # 11.4 H (1.8-7.7) K/mm3 Sodium 136 L (137-145) mmol/L Potassium 5.1 H (3.6-5.0) mmol/L Chloride 90.4 L (98-107) mmol/L Carbon Dioxide 20 L (22-30) mmol/L BUN 104 H (9-20) mg/dL Creatinine 15.4 H (0.8-1.5) mg/dL Glucose 130 H (75-100) mg/dL Calcium 6.3 L (8.4-10.2) mg/dL Phosphorus 8.50 H (2.5-4.5) mg/dL Direct Bilirubin 0.3 H (0-0.2) mg/dL AST 64 H (5-40) units/L ALT 132 H (7-56) units/L Alkaline Phosphatase 134 H (35-129) units/L Total Protein 5.4 L (6.3-8.2) g/dL Albumin 2.9 L (3.9-5) g/dL
--- NOTE | 2019-07-25 19:55 | Progress Note ---
Assessment and Plan Assessment and plan: 59-year-old -Spanish A patient with past medical history of with history of gout, hypertension admitted through emergency room with diffuse rash patient was on allopurinol, question of vancomycin use however after detailed history taking, patient did not use vancomycin. Noted to have acute renal failure, evaluated by nephrology, initiated hemodialysis,ID evaluated, feel it is DRESS phenomena started on steroids. 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 --Possible DRESS Possible DRESS [Drug Rash Eosinophilia and Systemic Symptoms] with end organ involvement[ renal failure, liver failure] allopurinol held Continue steroids and supportive care.ID following --Hyperkalemia Current Visit: Yes Status: Acute correction per protocol, hemodialysis per schedule --Transaminitis ;Elevated liver enzymes Current Visit: Yes Status: Acute Elevated liver enzymes Hepatitis profile ordered -- Metabolic acidosis Current Visit: Yes Status: Acute Secondary to severe uremia Hopefully should correct with hemodialysis --Hypertension; Current Visit: Yes Status: Chronic Continue antihypertensives, when necessary hydralazine --h/o Gout Current Visit: Yes Status: Inactive . Plan to address problem: hold allopurinol in view of rash -Severe malnutrition; hypoalbuminemia Nutrition supplements, supportive care -- DVT prophylaxis Current Visit: Yes Status: Acute On heparin --DC planning per case management; Disposition ;outpatient HD scheduling Possible home with home health/placement when medically stable History Interval history: Patient seen and examined medical records reviewed Slightly improved, diffuse rash all over the body Receiving hemodialysis per schedule Alert awake oriented 3 Vital signs noted Hospitalist Physical - Constitutional Vitals: Temp Pulse Resp BP Pulse Ox 97.1 F L 84 20 132/87 96 07/25/19 17:55 07/25/19 17:55 07/25/19 17:55 07/25/19 17:55 07/25/19 17:55 General appearance: Present: no acute distress, well-nourished, other (diffuse rash) - EENT Eyes: Present: PERRL, EOM intact - Neck Neck: Present: supple, normal ROM - Respiratory Respiratory effort: normal Respiratory: bilateral: diminished, negative: rales, rhonchi, wheezing - Cardiovascular Rhythm: regular Heart Sounds: Present: S1 & S2 - Extremities Extremities: no ischemia, No edema - Abdominal General gastrointestinal: soft, non-tender, non-distended, normal bowel sounds - Integumentary Integumentary: Present: clear, warm - Psychiatric Psychiatric: appropriate mood/affect, cooperative - Neurologic Neurologic: CNII-XII intact, moves all extremities Results - Labs CBC & Chem 7: 07/25/19 04:06 07/25/19 04:06 Labs: Laboratory Last Values WBC 13.2 K/mm3 (4.5-11.0) H 07/25/19 04:06 RBC 3.35 M/mm3 (3.65-5.03) L 07/25/19 04:06 Hgb 11.8 gm/dl (11.8-15.2) 07/25/19 04:06 Hct 35.0 % (35.5-45.6) L 07/25/19 04:06 MCV 105 fl (84-94) H 07/25/19 04:06 MCH 35 pg (28-32) H 07/25/19 04:06 MCHC 34 % (32-34) 07/25/19 04:06 RDW 14.7 % (13.2-15.2) 07/25/19 04:06 Plt Count 89 K/mm3 (140-440) L 07/25/19 04:06 Lymph % (Auto) 6.8 % (13.4-35.0) L 07/25/19 04:06 [place] % (Auto) 5.4 % (0.0-7.3) 07/25/19 04:06 Eos % (Auto) 1.1 % (0.0-4.3) 07/25/19 04:06 Baso % (Auto) 0.4 % (0.0-1.8) 07/25/19 04:06 Lymph # 0.9 K/mm3 (1.2-5.4) L 07/25/19 04:06 [place] # 0.7 K/mm3 (0.0-0.8) 07/25/19 04:06 Eos # 0.1 K/mm3 (0.0-0.4) 07/25/19 04:06 Baso # 0.1 K/mm3 (0.0-0.1) 07/25/19 04:06 Seg Neutrophils % 86.3 % (40.0-70.0) H 07/25/19 04:06 Seg Neutrophils # 11.4 K/mm3 (1.8-7.7) H 07/25/19 04:06 VBG pH 7.179 (7.320-7.420) L* 07/21/19 15:18 Sodium 136 mmol/L (137-145) L 07/25/19 04:06 Potassium 5.1 mmol/L (3.6-5.0) H 07/25/19 04:06 Chloride 90.4 mmol/L (98-107) L 07/25/19 04:06 Carbon Dioxide 20 mmol/L (22-30) L 07/25/19 04:06 31 mmol/L 07/25/19 04:06 BUN 104 mg/dL (9-20) H 07/25/19 04:06 15.4 mg/dL (0.8-1.5) H 07/25/19 04:06 Estimated GFR 4 ml/min 07/25/19 04:06 7 % 07/25/19 04:06 Glucose 130 mg/dL (75-100) H 07/25/19 04:06 5.1 % (4-6) 07/21/19 13:50 Lactic Acid 1.90 mmol/L (0.7-2.0) 07/21/19 15:18 Calcium 6.3 mg/dL (8.4-10.2) L 07/25/19 04:06 Phosphorus 8.50 mg/dL (2.5-4.5) H 07/25/19 04:06 Magnesium 1.80 mg/dL (1.7-2.3) 07/22/19 06:25 0.50 mg/dL (0.1-1.2) 07/25/19 04:06 0.3 mg/dL (0-0.2) H 07/25/19 04:06 0.2 mg/dL 07/25/19 04:06 AST 64 units/L (5-40) H 07/25/19 04:06 ALT 132 units/L (7-56) H 07/25/19 04:06 134 units/L (35-129) H 07/25/19 04:06 415 units/L (91-180) H 07/22/19 10:10 100 units/L (55-170) 07/22/19 06:25 5.4 g/dL (6.3-8.2) L 07/25/19 04:06 2.9 g/dL (3.9-5) L 07/25/19 04:06 1.2 % 07/25/19 04:06 TSH 0.753 mlU/mL (0.270-4.200) 07/21/19 13:50 PTH Intact 255.0 pg/mL (15-65) H 07/22/19 06:25 Hepatitis A IgM Ab Non-reactive (NonReactive) 07/21/19 13:50 Hep Bs Antigen Non-reactive (Negative) 07/21/19 13:50 Hep B Core IgM Ab Non-reactive (NonReactive) 07/21/19 13:50 Non-reactive (NonReactive) 07/21/19 13:50 HIV 1&2 Antibody Rapid Non react (Non React) 07/22/19 10:10 Non react (Non React) 07/22/19 10:10 None seen 07/22/19 10:10 Active Medications - Current Medications Current Medications: Generic Name Dose Route Start Last Admin Trade Name Freq PRN Reason Stop Dose Admin Acetaminophen 650 mg 07/21/19 21:15 Tylenol PO Q4H PRN Pain MILD(1-3)/Fever >100.5/PALOMARES Amlodipine Besylate 10 mg 07/21/19 22:00 07/25/19 14:16 Norvasc PO 10 mg DAILY TAMMIE Administration Famotidine 10 mg 07/21/19 22:00 07/25/19 14:16 Pepcid PO 10 mg BID TAMMIE Administration Hydromorphone HCl 0.25 mg 07/21/19 21:15 Dilaudid IV Q3H PRN Pain, Moderate (4-6) Lidocaine HCl 15 ml 07/24/19 20:00 07/25/19 15:29 Magic Mouthwash PO 15 ml TID TAMMIE Administration Methylprednisolone Sodium Succinate 40 mg 07/23/19 22:00 07/25/19 14:16 Solu-Medrol IV 40 mg Q8HR TAMMIE Administration Metoclopramide HCl 5 mg 07/24/19 13:00 Reglan IV Q6H PRN Nausea And Vomiting Ondansetron HCl 4 mg 07/21/19 21:46 Zofran IV Q8H PRN Nausea And Vomiting Oxycodone/Acetaminophen 1 tab 07/21/19 21:15 Percocet 5/325 PO Q6H PRN Pain, Moderate (4-6) Sodium Chloride 10 ml 07/21/19 22:00 07/25/19 14:16 Sodium Chloride Flush Syringe 10 Ml IV 10 ml BID TAMMIE Administration Sodium Chloride 10 ml 07/21/19 21:46 07/23/19 07:16 Sodium Chloride Flush Syringe 10 Ml IV 10 ml PRN PRN Administration LINE FLUSH
[2019-07-26] MEDS: SOLU-Medrol IV SCH ×2 (06:44→14:52)
[2019-07-26 07:31] LABS: Basophils % (Auto) 0.2 % (0.0-1.8); Eosinophils # (Auto) 0.1 K/mm3 (0.0-0.4); Eosinophils % (Auto) 0.8 % (0.0-4.3); Hematocrit 35.7 % (35.5-45.6); Lymphocytes # (Auto) 1.1 K/mm3 (1.2-5.4); Mean Corpuscular HGB Conc 34 % (32-34); Mean Corpuscular Volume 104 fl (84-94); Monocytes # (Auto) 1.6 K/mm3 (0.0-0.8); Monocytes % (Auto) 9.7 % (0.0-7.3); Red Blood Count 3.42 M/mm3 (3.65-5.03); Red Cell Distribution Width 14.2 % (13.2-15.2)
[2019-07-26 07:37] LABS: Calcium 6.6 mg/dL (8.4-10.2)
[2019-07-26 07:42] LABS: Platelet Count 89 K/mm3 (140-440)
[2019-07-26] MEDS ORDERED: HEPARIN/NS 5000 UNIT/500ML(CATH LAB) 1,000 ML IR ONE (09:49)
[2019-07-26] MEDS ORDERED: ANCEF/STERILE WATER 2 GM/20 ML 2 GM/20 ML SYRINGE IV ONE (09:50)
[2019-07-26] MEDS ORDERED: NACL 0.9% 500 ML 500 ML ONE (09:50)
[2019-07-26] MEDS: VERSED ONE ×2 (10:09→10:12)
[2019-07-26] MEDS: SUBLIMAZE ONE ×2 (10:09→10:12)
[2019-07-26] MEDS: XYLOCAINE 2% INFILTRATI ONE ×3 (10:13→10:18)
[2019-07-26] MEDS ORDERED: HEPARIN 10,000 UNITS/10 ML ONE (10:16)
[2019-07-26] MEDS ORDERED: SUBLIMAZE ONE (10:19)
[2019-07-26] MEDS ORDERED: VERSED ONE (10:19)
--- NOTE | 2019-07-26 10:41 | Operative Report ---
Operative Report Operative Report: EXAM: 1. Fluoroscopic-guided conversion of a right internal jugular non-tunneled non- cuffed hemodialysis catheter to a tunneled cuffed hemodialysis catheter. DATE: 07/26/19 INDICATION: Acute renal failure requiring hemodialysis access. MEDICATIONS: Please see nursing report for full details. DEVICES: 23 cm tip to cuff dual lumen hemodialysis catheter EROSION CONTROL SPECIALIST: TAYA CARLSON MD CONTRAST: None PROCEDURE: The risks, benefits, and alternatives were discussed and informed consent was obtained. The patient was transported to the angiography suite in satisfactory/stable condition and was transported onto the angiography table. The patient was prepped and draped in a sterile fashion. Attempts were made to clean the patient's skin is much as possible due to recent drug associated rash resulting in a systemic exfoliation of the skin. The existing vascath was prepped and draped in a sterile fashion. Suture was cut. 0.035 inch wire was advanced through the Vas-Cath into the IVC. Vas-Cath was removed. The wire was cleaned with ChloraPrep. Over the 0.035 inch wire, serial dilatation was performed with ultimate placement of a peel-away sheath. Reverse tunneled PermCath was inserted to the peel-away sheath and positioned in the right atrium. Peel-away sheath removed. A suitable exit site was identified on the patient's chest inferior and lateral to the venotomy. The site was anesthetized with local anesthetic and the track was anesthetized. Dermatotomy was made. Reverse tunneler was then tunneled from dermatotomy to the venotomy site/catheter. The PermCath was attached to the tunneling device and reverse tunneled between the dermatotomy to the venotomy. The catheter was reassembled. 4-0 Vicryl suture was used to close the venotomy and Dermabond was then applied. 2-0 Ethilon suture was used to secure the catheter at the dermatotomy. The catheter was charged with heparin 1000 units/mL space. Biopatch and sterile dressing applied. The patient was transferred from the angiography suite back to the floor in stable condition. FINDINGS: 1. Excellent flow was obtained through the dialysis catheter with 20 mL syringes. 2. The catheter tip is in the right atrium. IMPRESSION: 1. Fluoroscopic-guided conversion of a right internal jugular non-tunneled non- cuffed hemodialysis catheter to a tunneled cuffed hemodialysis catheter.
--- NOTE | 2019-07-26 11:48 | Progress Note ---
Assessment and Plan Diffuse Rash - possibly secondary to DRESS Acute Kidney Injury on CKD, exact etiology of acute component unclear, ? GN/vasculitis etiology, underlying hx of CKD (exact stage unknown), no obstruction Hyperkalemia High Anion Gap Metabolic Acidosis Essential HTN Hx of Gout Plan: - s/p permcath placement today - Obtain GN work up, currently on high dose steroids, will hold on kidney biopsy for now for diffuse skin rash, consider skin biopsy - Hepatitis panel and HIV negative - LJ, ANCA, Anti-GBM, C3, C4, SPEP pending - Avoid ACEI/ARBs in setting of severe renal failure - Avoid NSAIDs - Renally dose medications - Obtain daily weights - CM onboard for outpatient HD arrangement - Assess dialysis needs daily Nate Gil MD [phone] Subjective Date of service: 07/26/19 Principal diagnosis: severe renal failure Interval history: tolerated permcath placement Objective - Vital Signs Vital signs: Vital Signs - 12hr 07/26/19 07/26/19 00:20 05:43 Temperature 97.8 F 97.9 F Pulse Rate 77 81 Respiratory 18 18 Rate Blood Pressure 129/80 150/96 O2 Sat by Pulse 97 97 Oximetry - General Appearance General appearance: well-developed, well-nourished EENT: ATNC, PERRL, mucous membranes moist Neck: no JVD, no carotid bruit Respiratory: Present: Clear to Ascultation. Absent: Rales, Ronchi Cardiology: regular, S1S2 Gastrointestinal: normoactive bowel sounds, no hypoactive bowel sounds, no tenderness Integumentary: rash, warm and dry Neurologic: no focal deficit, no asterixis, alert and oriented x3 Musculoskeletal: other (no edema in BLE) Psychiatric: mood/affect appropriate, cooperative - Lab 07/26/19 06:38 07/26/19 06:38 Most recent lab results Calcium 6.6 mg/dL (8.4-10.2) L 07/26/19 06:38 Phosphorus 6.50 mg/dL (2.5-4.5) H D 07/26/19 06:38 Magnesium 1.80 mg/dL (1.7-2.3) 07/22/19 06:25 Medications & Allergies - Medications Allergies/Adverse Reactions: Allergies vancomycin Allergy (Severe, Verified 07/26/19 10:55) Anaphylaxis RASH, TROUBLE SWALLOWING, REDNESS, Home Medications: Home Medications Medication Instructions Recorded Confirmed Last Taken Type Allopurinol [Zyloprim] 100 mg PO QDAY 07/21/19 07/21/19 07/20/19 History Allopurinol [Zyloprim] 300 mg PO QDAY 07/21/19 07/21/19 07/20/19 History Colchicine 0.6 mg PO BID 07/21/19 07/21/19 07/20/19 History Meloxicam [Mobic] 15 mg PO QDAY 07/21/19 07/21/19 07/20/19 History amLODIPine [Norvasc] 10 mg PO DAILY 07/21/19 07/21/19 07/20/19 History methylPREDNISolone [Medrol] 4 mg PO ONCE 07/21/19 07/21/19 07/17/19 History predniSONE [Deltasone] 5 mg PO BID 07/21/19 07/21/19 07/20/19 History Active Medications: Generic Name Dose Route Start Last Admin Trade Name Freq PRN Reason Stop Dose Admin Acetaminophen 650 mg 07/21/19 21:15 Tylenol PO Q4H PRN Pain MILD(1-3)/Fever >100.5/PALOMARES Amlodipine Besylate 10 mg 07/21/19 22:00 07/25/19 14:16 Norvasc PO 10 mg DAILY TAMMIE Administration Famotidine 10 mg 07/21/19 22:00 07/25/19 22:26 Pepcid PO 10 mg BID TAMMIE Administration Hydromorphone HCl 0.25 mg 07/21/19 21:15 Dilaudid IV Q3H PRN Pain, Moderate (4-6) Lidocaine HCl 15 ml 07/24/19 20:00 07/25/19 20:59 Magic Mouthwash PO 15 ml TID TAMMIE Administration Methylprednisolone Sodium Succinate 40 mg 07/23/19 22:00 07/26/19 06:44 Solu-Medrol IV 40 mg Q8HR TAMMIE Administration Metoclopramide HCl 5 mg 07/24/19 13:00 Reglan IV Q6H PRN Nausea And Vomiting Ondansetron HCl 4 mg 07/21/19 21:46 Zofran IV Q8H PRN Nausea And Vomiting Oxycodone/Acetaminophen 1 tab 07/21/19 21:15 Percocet 5/325 PO Q6H PRN Pain, Moderate (4-6) Sodium Chloride 10 ml 07/21/19 22:00 07/25/19 22:26 Sodium Chloride Flush Syringe 10 Ml IV 10 ml BID TAMMIE Administration Sodium Chloride 10 ml 07/21/19 21:46 07/23/19 07:16 Sodium Chloride Flush Syringe 10 Ml IV 10 ml PRN PRN Administration LINE FLUSH
[2019-07-26] MEDS: MAGIC MOUTHWASH PO SCH ×2 (12:14→14:50)
--- NOTE | 2019-07-26 14:45 | Discharge Summary ---
Providers - Providers Date of Admission: 07/21/19 16:40 Date of discharge: 07/26/19 Attending physician: SOPHIA MORRIS 07/21/19 Consult to Case Management [CONS] Routine Services Needed at Discharge: Home Health Services Grizzly Worker Notified:: cm notified Comment:: hemodialysis placement 07/21/19 15:06 Consult to Physician [CONS] Routine Comment: Consulting Provider: LUCINDA CARPENTER Physician Instructions: Reason For Exam: Acute renal failure, Hyperkalemia 07/21/19 15:24 Consult to Physician [CONS] Routine Comment: Consulting Provider: LETI REEVES Physician Instructions: Reason For Exam: Vas Cath placement 07/21/19 21:50 Consult to Physician [CONS] Routine Comment: Consulting Provider: PEACE GREEN Physician Instructions: Reason For Exam: Lucie syndrome 07/25/19 10:43 Consult to Case Management [CONS] Routine Services Needed at Discharge: Other Notified:: copy given to cm Comment:: Outpatient HD arrangement to [facility] [phone] 07/25/19 10:49 Consult to Physician [CONS] Routine Comment: Consulting Provider: LETI REEVES Physician Instructions: Reason For Exam: Perm-cath placement Primary care physician: TRAIN BRAKER Hospitalization Condition: Serious Hospital course: 59-year-old -Slovenian A patient with past medical history of with history of gout, hypertension admitted through emergency room with diffuse rash patient was on allopurinol, question of vancomycin use however after detailed history taking, patient did not use vancomycin. Noted to have acute renal failure, evaluated by nephrology, initiated hemodialysis,ID evaluated, feel it is DRESS phenomena started on steroids. 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 --Possible DRESS Possible DRESS [Drug Rash Eosinophilia and Systemic Symptoms] with end organ involvement[ renal failure, liver failure] allopurinol held Continue steroids and supportive care.ID following --Hyperkalemia Current Visit: Yes Status: Acute correction per protocol, hemodialysis per schedule --Transaminitis ;Elevated liver enzymes Current Visit: Yes Status: Acute Elevated liver enzymes Hepatitis profile ordered -- Metabolic acidosis Current Visit: Yes Status: Acute Secondary to severe uremia Hopefully should correct with hemodialysis --Hypertension; Current Visit: Yes Status: Chronic Continue antihypertensives, when necessary hydralazine --h/o Gout Current Visit: Yes Status: Inactive . Plan to address problem: hold allopurinol in view of rash -Severe malnutrition; hypoalbuminemia Nutrition supplements, supportive care -- DVT prophylaxis Current Visit: Yes Status: Acute On heparin --DC planning per case management; Disposition ;outpatient HD scheduling Possible home with home health/placement when medically stable Hospitalist Physical General appearance: Present: no acute distress, well-nourished, other (diffuse rash) - EENT Eyes: Present: PERRL, EOM intact - Neck Neck: Present: supple, normal ROM - Respiratory Respiratory effort: normal Respiratory: bilateral: diminished, negative: rales, rhonchi, wheezing - Cardiovascular Rhythm: regular Heart Sounds: Present: S1 & S2 - Extremities Extremities: no ischemia, No edema - Abdominal General gastrointestinal: soft, non-tender, non-distended, normal bowel sounds - Integumentary Integumentary: Present: clear, warm - Psychiatric Psychiatric: appropriate mood/affect, cooperative - Neurologic Neurologic: CNII-XII intact, moves all extremities Disposition: DC-01 TO HOME OR SELFCARE Time spent for discharge: 34 minutes Core Measure Documentation - Palliative Care Palliative Care/ Comfort Measures: Not Applicable - Core Measures Any of the following diagnoses?: none Exam - Constitutional Vitals: Temp Pulse Resp BP Pulse Ox 97.9 F 81 18 150/96 97 07/26/19 05:43 07/26/19 05:43 07/26/19 05:43 07/26/19 05:43 07/26/19 05:43 Plan Activity: advance as tolerated Weight Bearing Status: Weight Bear as Tolerated Diet: renal Follow up with: GAGAN WIGGINS MD [Referring] - 3-5 Days Prescriptions: predniSONE [Deltasone] 10 mg PO .TAPER #77 tab
[2019-07-26 14:47] VITALS: BP 140/100
[2019-07-26] MEDS: NORVASC PO SCH (14:47)
[2019-07-26] MEDS: PEPCID PO SCH (14:47)
[2019-07-26] MEDS: SODIUM CHLORIDE FLUSH SYRINGE 10 ML IV SCH (14:47)
[2019-07-27 08:33] LABS: Myeloperoxidase Antibody <1.0 AI (<1.0)
[2019-07-28 02:47] LABS: Albumin 2.5 g/dL (3.8-4.8); Gamma Globulin 0.5 g/dL (0.8-1.7)
== END 2019-07-26 17:40 | disposition home health service (06) | DRG 673 ==
LOC: ED 13:30 → 4A 16:40 → 3A 07-23 16:36
PROVIDERS: ADMIT Internal Medicine; ATTEND Internal Medicine
PROC: 06H033Z Insertion of Infusion Device into Inferior Vena Cava, Percutaneous Approach (ICD-10-PCS; principal; 2019-07-21)
PROC: B5191ZA Fluoroscopy of Inferior Vena Cava using Low Osmolar Contrast, Guidance (ICD-10-PCS; 2019-07-21)
PROC: B549ZZA Ultrasonography of Inferior Vena Cava, Guidance (ICD-10-PCS; 2019-07-21)
PROC: 5A1D70Z Performance of Urinary Filtration, Intermittent, Less than 6 Hours Per Day (ICD-10-PCS; 2019-07-21)
PROC: 5A1D70Z Performance of Urinary Filtration, Intermittent, Less than 6 Hours Per Day (ICD-10-PCS; 2019-07-22)
PROC: 5A1D70Z Performance of Urinary Filtration, Intermittent, Less than 6 Hours Per Day (ICD-10-PCS; 2019-07-25)
PROC: 0JH63XZ Insertion of Tunneled Vascular Access Device into Chest Subcutaneous Tissue and Fascia, Percutaneous Approach (ICD-10-PCS; 2019-07-26)
PROC: 06PYX3Z Removal of Infusion Device from Lower Vein, External Approach (ICD-10-PCS; 2019-07-26)
PROC: B244ZZZ Ultrasonography of Right Heart (ICD-10-PCS; 2019-07-26)
PROC: 02H633Z Insertion of Infusion Device into Right Atrium, Percutaneous Approach (ICD-10-PCS; 2019-07-26)
PROC: B2141ZZ Fluoroscopy of Right Heart using Low Osmolar Contrast (ICD-10-PCS; 2019-07-26)
DX: N17.1 Acute kidney failure with acute cortical necrosis (principal); E43 Unspecified severe protein-calorie malnutrition; E87.2 Acidosis; I12.0 Hypertensive chronic kidney disease with stage 5 chronic kidney disease or end stage renal disease; N17.0 Acute kidney failure with tubular necrosis; Z60.2 Problems related to living alone; E87.5 Hyperkalemia; L27.0 Generalized skin eruption due to drugs and medicaments taken internally; T36.8X5A Adverse effect of other systemic antibiotics, initial encounter; F17.210 Nicotine dependence, cigarettes, uncomplicated; M10.9 Gout, unspecified; E11.22 Type 2 diabetes mellitus with diabetic chronic kidney disease; Z99.2 Dependence on renal dialysis; Z82.49 Family history of ischemic heart disease and other diseases of the circulatory system; Z88.1 Allergy status to other antibiotic agents; Z68.27 Body mass index [BMI] 27.0-27.9, adult; Z79.84 Long term (current) use of oral hypoglycemic drugs; Y92.098 Other place in other non-institutional residence as the place of occurrence of the external cause; Z71.6 Tobacco abuse counseling
CPT/HCPCS: 36415; 36556; 36558; 71045; 76770; 76937; 77001; 80048; 80053; 80074; 80076; 82140; 82550; 82805; 83036; 83520; 83615; 83735; 83970; 84100; 84165; 84443; 85025; 86021; 86038; 86160; 87040; 87806; 93005; 93010; 96361; 96365; 96372; 96375; 99406; G0378; C1750; C1752; C1769; J0171; J0610; J0690; J0878; J1200; J1644; J1815; J2250; J2920; J2930; J3010; J7030; J7040; J7050; J7512

== ENCOUNTER 2021-05-29 13:55 | Inpatient (IN) | payer MEDICARE, OTHER ==
--- NOTE | 2021-05-29 15:47 | Emergency Department Report ---
HPI - General Chief Complaint: GI Bleed Time Seen by Provider: 05/29/21 15:21 - HPI HPI: Room 38 The patient is a 60-year-old male present with a chief complaint of GI bleed. The patient states his symptoms began 3 days ago when he noticed dark purple blood in his stool. Patient states his stool has been black for the past 3 days. Patient states he has had decreased food intake secondary to feeling nauseous when he eats. Patient denies vomiting. Patient complains of right- sided abdominal pain. Patient denies using Pepto-Bismol or iron supple mentations. Patient states he has been feeling progressively weaker each day. The patient acknowledges he fell several weeks ago injuring the ribs on his left side ED Past Medical Hx - Past Medical History Hx Hypertension: Yes Hx Renal Disease: Yes (ESRD, HD q. T, TH, SAT) Additional medical history: Gout - Surgical History Additional Surgical History: Left upper extremity fistula, herniorrhaphy - Family History Family history: no significant - Social History Smoking Status: Current Some Day Smoker (Cigars) Substance Use Type: None (Denies illicit drug use), Alcohol (Daily times several months) - Medications Home Medications: Home Medications Medication Instructions Recorded Confirmed Last Taken Type amLODIPine 10 mg PO DAILY 07/21/19 07/21/19 07/20/19 History predniSONE 10 mg PO .TAPER #77 tab 07/26/19 Unknown Rx ED Review of Systems ROS: Stated complaint: DIZZINESS Other details as noted in HPI Constitutional: weakness Eyes: denies: eye pain ENT: denies: throat pain Respiratory: no symptoms reported Cardiovascular: denies: chest pain Endocrine: no symptoms reported Gastrointestinal: abdominal pain, nausea, melena, hematochezia. denies: vomiting Genitourinary: denies: dysuria Musculoskeletal: denies: back pain Neurological: denies: headache Physical Exam - Physical Exam Vital Signs: Vital Signs 05/29/21 14:19 Temperature 99.2 F Pulse Rate 102 H Respiratory 16 Rate Blood Pressure 113/78 O2 Sat by Pulse 100 Oximetry Physical Exam: GENERAL: The patient is well-developed well-nourished male lying on stretcher not appearing to be in acute distress. [] HEENT: Normocephalic. Atraumatic. Extraocular motions are intact. Patient has moist mucous membranes. NECK: Supple. Trachea midline CHEST/LUNGS: Clear to auscultation. There is no respiratory distress noted. HEART/CARDIOVASCULAR: Regular. There is no tachycardia. There is no gallop rub or murmur. ABDOMEN: Abdomen is soft, with mild discomfort to palpation in the right upper quadrant and right lower quadrant. Patient has normal bowel sounds. There is no abdominal distention. SKIN: There is no rash. There is no edema. There is no diaphoresis. NEURO: The patient is awake, alert, and oriented. The patient is cooperative. The patient has no focal neurologic deficits. The patient has normal speech MUSCULOSKELETAL: There is no tenderness or deformity. There is no limitation range of motion. There is no evidence of acute injury. RECTAL: Guaiac positive dark stool ED Course Vital Signs 05/29/21 14:19 Temperature 99.2 F Pulse Rate 102 H Respiratory 16 Rate Blood Pressure 113/78 O2 Sat by Pulse 100 Oximetry - Consultations Consultation #1: 05/29/21 15:47 GI paged 05/29/21 16:[address] Méndez ED Medical Decision Making - Lab Data Result diagrams: 05/29/21 15:25 05/29/21 15:25 Laboratory Tests 05/29/21 05/29/21 05/29/21 15:25 15:25 15:34 WBC 10.3 RBC 1.40 L Hgb 6.2 L Hct 18.7 L* MCV 134 H MCH 44 H MCHC 33 RDW 16.7 H Plt Count 221 Lymph % (Auto) 14.8 [place] % (Auto) 7.3 Eos % (Auto) 0.3 Baso % (Auto) 0.8 Lymph # (Auto) 1.5 [place] # (Auto) 0.7 Eos # (Auto) 0.0 Baso # (Auto) 0.1 Seg Neutrophils % 76.8 H Seg Neutrophils # 7.9 H PT INR APTT Sodium 138 Potassium 3.9 Chloride 98.8 Carbon Dioxide 25 Anion Gap 18 BUN 26 H Creatinine 6.8 H Estimated GFR 10 BUN/Creatinine Ratio 4 Glucose 99 Calcium 8.6 Phosphorus 2.30 L Magnesium 1.80 Total Bilirubin 0.50 AST 13 ALT 8 Alkaline Phosphatase 66 Troponin T 0.032 H NT-Pro-B Natriuret Pep 30764 H Total Protein 5.1 L Albumin 2.6 L Albumin/Globulin Ratio 1.0 Triglycerides 138 Cholesterol 75 LDL Cholesterol Direct 40 L HDL Cholesterol 33 L Cholesterol/HDL Ratio 2.27 Blood Type O POSITIVE Antibody Screen Negative Crossmatch See Detail 05/29/21 15:34 WBC RBC Hgb Hct MCV MCH MCHC RDW Plt Count Lymph % (Auto) [place] % (Auto) Eos % (Auto) Baso % (Auto) Lymph # (Auto) [place] # (Auto) Eos # (Auto) Baso # (Auto) Seg Neutrophils % Seg Neutrophils # PT 12.7 INR 0.90 APTT 28.8 Sodium Potassium Chloride Carbon Dioxide Anion Gap BUN Creatinine Estimated GFR BUN/Creatinine Ratio Glucose Calcium Phosphorus Magnesium Total Bilirubin AST ALT Alkaline Phosphatase Troponin T NT-Pro-B Natriuret Pep Total Protein Albumin Albumin/Globulin Ratio Triglycerides Cholesterol LDL Cholesterol Direct HDL Cholesterol Cholesterol/HDL Ratio Blood Type Antibody Screen Crossmatch - Radiology Data Radiology results: report reviewed (Chest x-ray), image reviewed (Chest x-ray) interpreted by me: Chest x-ray-no focal filtrate, no pneumothorax. [facility] [address] [place] [address] XRay Report Signed Patient: MAGALYS CUEVAS MR#: [id number] : 1960 Acct:[id number] Age/Sex: 60 / M ADM Date: 05/29/21 Loc: ED Attending Dr: Ordering Physician: RENAY PERSON Date of Service: 05/29/21 Procedure(s): XR chest 1V ap Accession Number(s): [id number] cc: RENAY PERSON Fluoro Time In Minutes: CHEST 1 VIEW 05/29/2021 3:32 PM INDICATION / CLINICAL INFORMATION: DIZZY. COMPARISON: 07/21/2019 FINDINGS: SUPPORT DEVICES: None. HEART / MEDIASTINUM: No significant abnormality. LUNGS / PLEURA: No significant pulmonary or pleural abnormality. No pneumothorax. ADDITIONAL FINDINGS: No significant additional findings. IMPRESSION: 1. No acute findings. Signer Name: Reg Henley DO Signed: 05/29/2021 3:53 PM Workstation Name: [id number] Transcribed By: AUGUSTINE Dictated By: REG HENLEY DO Electronically Authenticated By: REG HENLEY DO Signed Date/Time: 05/29/21 1553 DD/ 1552 TD/TT: Print Cancel - Differential Diagnosis GI bleed Critical care attestation.: If time is entered above; I have spent that time in minutes in the direct care of this critically ill patient, excluding procedure time. ED Disposition Clinical Impression: GI bleed, Symptomatic anemia Disposition: OP ADMIT IP TO THIS HOSP Is pt being admited?: Yes Does the pt Need Aspirin: No Condition: Serious Forms: Accompanied Note Time of Disposition: 16:44 (Hospitalist notified (Dr. Vazquez))
[2021-05-29] MEDS ORDERED: PANTOPRAZOLE 40 MG INJ IV ONE (15:56)
--- NOTE | 2021-05-29 15:57 | XRay Report ---
CHEST 1 VIEW 05/29/2021 3:32 PM INDICATION / CLINICAL INFORMATION: DIZZY. COMPARISON: 07/21/2019 FINDINGS: SUPPORT DEVICES: None. HEART / MEDIASTINUM: No significant abnormality. LUNGS / PLEURA: No significant pulmonary or pleural abnormality. No pneumothorax. ADDITIONAL FINDINGS: No significant additional findings. IMPRESSION: 1. No acute findings. Signer Name: Reg Limon DO Signed: 05/29/2021 3:53 PM Workstation Name: [id number]
[2021-05-29 16:15] LABS: Basophils # (Auto) 0.1 K/mm3 (0.0-0.1); Basophils % (Auto) 0.8 % (0.0-1.8); Eosinophils % (Auto) 0.3 % (0.0-4.3); Hemoglobin 6.2 gm/dl (11.8-15.2); Lymphocytes # (Auto) 1.5 K/mm3 (1.2-5.4); Lymphocytes % (Auto) 14.8 % (13.4-35.0); Mean Corpuscular HGB Conc 33 % (32-34); Monocytes # (Auto) 0.7 K/mm3 (0.0-0.8); Monocytes % (Auto) 7.3 % (0.0-7.3); Platelet Count 221 K/mm3 (140-440); Red Cell Distribution Width 16.7 % (13.2-15.2)
[2021-05-29 16:16] LABS: Albumin 2.6 g/dL (3.9-5); Calcium 8.6 mg/dL (8.4-10.2)
[2021-05-29 16:25] LABS: Hematocrit 18.7 % (35.5-45.6); Mean Corpuscular Volume 134 fl (84-94)
[2021-05-29 16:26] LABS: INR 0.9 (0.87-1.13)
[2021-05-29 16:27] LABS: Partial Thromboplastin Time 28.8 Sec. (24.2-36.6)
[2021-05-29 16:33] LABS: Chol/HDL Ratio 2.27 %
[2021-05-29] MEDS ORDERED: SODIUM CHLORIDE 0.9% 500 ML 500 ML IV ONE (16:34)
--- NOTE | 2021-05-29 16:43 | History and Physical Report ---
History of Present Illness Chief complaint: I think I have blood in my stool History of present illness: 60 YO Male with HTN, Gout, ESRD on HD(T,R,Sa), Nicotine Dependence, ETOH Dependence presents to ED for evaluation. Patient reports "I think I have blood in my stool". Patient states that he has experienced multiple episodes of dark purple blood in his stool over the past 3 days with persistent symptoms over the same timeframe. Patient states that he has changed his dietary intake due to the aforementioned symptoms. Patient knowledges nausea as well as right-sided abdominal discomfort, generalized weakness. EMS was notified and upon arrival the patient was found to be in distress and subsequently transported to [facility] for further care and evaluation of the aforementioned symptoms. The patient was seen and evaluated in the emergency department. All lab and imaging studies reviewed. Patient was found to be Hemoccult positive with symptoms consistent with lower GI bleed. Patient also found to have end-stage renal disease, as well as alcohol dependence. Patient admitted to telemetry and initiated on GI bleed protocol. Patient also initiated on CIWA protocol. Nephrology team consulted in ED. Patient denies fever, chills, chest pain, palpitation, productive cough, skin rash, recent ill contacts, or known exposure to COVID-19. Prior admission on 07/21/2019 reviewed. All medication listed at time of admission has been reconciled. Crow care planning conducted in ED. Past History Past Medical History: ESRD, hypertension, other (See HPI) Past Surgical History: hernia repair, Other (Dialysis access) Social history: , smoking, alcohol abuse Family history: diabetes, hypertension Medications and Allergies Allergies Allergy/AdvReac Type Severity Reaction Status Date / Time vancomycin Allergy Severe Anaphylaxis Verified 05/29/21 14:25 Home Medications Medication Instructions Recorded Confirmed Last Taken Type amLODIPine 10 mg PO DAILY 07/21/19 07/21/19 07/20/19 History predniSONE 10 mg PO .TAPER #77 tab 07/26/19 Unknown Rx Review of Systems Constitutional: no weight loss, no weight gain, no fever, no chills Ears, nose, mouth and throat: no ear pain, no ear discharge, no decreased hearing, no nose pain, no nasal discharge Cardiovascular: no chest pain, no orthopnea, no edema, no lightheadedness Respiratory: no cough, no cough with sputum, no hemoptysis, no dyspnea on exertion Gastrointestinal: BRBPR, melena, no abdominal pain, no diarrhea, no constipation Genitourinary Male: no hematuria, no flank pain, no discharge, no urinary frequency, no urinary hesitancy Rectal: no pain, no incontinence, no bleeding Musculoskeletal: no neck stiffness, no neck pain, no shooting arm pain, no arm numbness/tingling Integumentary: no rash, no pruritis, no redness, no sores, no wounds Neurological: no transient paralysis, no paralysis, no numbness, no tingling Psychiatric: no anxiety, no memory loss, no sleep disturbances, no insomnia, no change in libido, no suicidal ideation Endocrine: no cold intolerance, no heat intolerance, no polyphagia, no poly dipsia, no polyuria, no excessive sweating Hematologic/Lymphatic: no easy bruising, no easy bleeding, no lymphadenopathy Allergic/Immunologic: no urticaria, no allergic rhinitis, no persistent infections, no anaphylaxis Exam - Constitutional Vitals: Temp Pulse Resp BP Pulse Ox 97.9 F 98 H 16 121/80 100 05/29/21 15:46 05/29/21 15:46 05/29/21 15:46 05/29/21 15:46 05/29/21 15:46 General appearance: Present: mild distress - EENT Eyes: Present: PERRL ENT: hearing intact, clear oral mucosa - Neck Neck: Present: supple, normal ROM - Respiratory Respiratory effort: normal Respiratory: bilateral: CTA - Cardiovascular Heart Sounds: Present: S1 & S2. Absent: rub, click - Extremities Extremities: pulses symmetrical, No edema Peripheral Pulses: within normal limits - Abdominal General gastrointestinal: Present: soft, non-tender, non-distended, normal bowel sounds Male genitourinary: Present: normal - Integumentary Integumentary: Present: clear, warm, dry - Musculoskeletal Musculoskeletal: gait normal, strength equal bilaterally - Psychiatric Psychiatric: appropriate mood/affect, intact judgment & insight - Neurologic Neurologic: CNII-XII intact, moves all extremities HEART Score - HEART Score Troponin: Troponin T 0.032 ng/mL (0.00-0.029) H 05/29/21 15:25 Results - Labs CBC & Chem 7: 05/29/21 15:25 05/29/21 15:25 Labs: Abnormal lab results 05/29/21 05/29/21 05/29/21 Range/Units 15:25 15:25 15:34 RBC 1.40 L (3.65-5.03) M/mm3 Hgb 6.2 L (11.8-15.2) gm/dl Hct 18.7 L* (35.5-45.6) % MCV 134 H (84-94) fl MCH 44 H (28-32) pg RDW 16.7 H (13.2-15.2) % Seg Neutrophils % 76.8 H (40.0-70.0) % Seg Neutrophils # 7.9 H (1.8-7.7) K/mm3 BUN 26 H (9-20) mg/dL Creatinine 6.8 H (0.8-1.3) mg/dL Phosphorus 2.30 L (2.5-4.5) mg/dL Troponin T 0.032 H (0.00-0.029) ng/mL NT-Pro-B Natriuret Pep 74767 H (0-900) pg/mL Total Protein 5.1 L (6.3-8.2) g/dL Albumin 2.6 L (3.9-5) g/dL LDL Cholesterol Direct 40 L (50-130) mg/dL HDL Cholesterol 33 L (40-59) mg/dL Crossmatch See Detail Assessment and Plan - Patient Problems (1) GI bleed Status: Acute Qualifiers: GI bleed type/associated pathology: anorectal hemorrhage Qualified Code(s): K62.5 - Hemorrhage of anus and rectum Plan to address problem: GI bleed protocol: CBC, packed red blood cell transfusion, PPI therapy, gastroenterology team consulted, endoscopy as per GI team, supportive care. Repeat CBC in a.m. (2) Alcohol dependence Status: Acute Plan to address problem: CIWA protocol: Thiamine, folic acid, multivitamin daily, supportive care. (3) End stage renal disease Status: Acute Plan to address problem: Nephrology team consulted in ED, dialysis as per renal team. Avoid nephrotoxic agents. (4) Nicotine dependence Status: Acute Qualifiers: Nicotine product type: cigarettes Substance use status: in withdrawal Qualified Code(s): F17.213 - Nicotine dependence, cigarettes, with withdrawal Plan to address problem: Smoking cessation counseling, supportive care, behavior change counseling, +15 minutes. (5) DVT prophylaxis Status: Acute Plan to address problem: SCD to bilateral lower extremities while in bed, patient is ambulatory. (6) Advance care planning Status: Acute Plan to address problem: Disease education conducted, care plan discussed, diagnosis discussed, prognosis discussed, patient knowledges understanding and agreement with care plan, +30 minutes.
[2021-05-29] MEDS ORDERED: HYDROmorphone 1 MG/1 ML INJ IV PRN (16:46)
[2021-05-29] MEDS ORDERED: ONDANSETRON 4 MG/2 ML INJ IV PRN (16:46)
[2021-05-29] MEDS ORDERED: ACETAMINOPHEN 325 MG TAB PO PRN (16:46)
[2021-05-29] MEDS ORDERED: oxyCODONE /ACETAMINOPHEN 5-325MG TAB PO PRN (16:46)
[2021-05-29] MEDS ORDERED: ALBUTEROL 2.5 MG/3 ML NEBU IH PRN (16:46)
[2021-05-29] MEDS ORDERED: SODIUM CHLORIDE 0.9% 500 ML 500 ML IV SCH (16:49)
[2021-05-29] MEDS ORDERED: MULTIVITAMINS ,THERAPEUTIC TAB PO ONE (16:51)
[2021-05-29] MEDS ORDERED: LORazepam 2 MG/ML VIAL IV PRN (16:51)
[2021-05-29] MEDS ORDERED: THIAMINE 100 MG TAB PO ONE (17:51)
--- NOTE | 2021-05-29 18:43 | Event Note ---
Date: 05/29/21 discussed with ER, pt presenting with reported black stools for 3 days, h/o esrd on dialysis. severe anemia on admission. dark heme positive stool per ER. BP stable, mild tachycardia. will plan for EGD in AM. npo at midnight. if signs of overt bleeding or HD changes, obtain CTA/bleeding scan. please call with changes overnight.
[2021-05-29] MEDS ORDERED: PANTOPRAZOLE 40 MG INJ IV SCH (22:00)
[2021-05-30] MEDS ORDERED: propofoL 200 MG/20 ML VIAL IV ONE ×2 (07:19→07:57)
[2021-05-30] MEDS ORDERED: LIDOCAINE MPF (2%) 20 MG/1 ML VIAL 5 ML ONE (07:19)
--- NOTE | 2021-05-30 07:25 | Anesthesia Day of Surgery ---
Anesthesia Day of Surgery - Day of Surgery Patient Examined: Yes Patient H&P Reviewed: Yes Patient is NPO: Yes Beta Blockers: No Cardiac Clearance: No Pulmonary Clearance: No Matthew's Test: N/A
[2021-05-30] MEDS ORDERED: SODIUM CHLORIDE 0.9% 1000 ML 1,000 ML IV SCH (07:30)
[2021-05-30] MEDS ORDERED: WATER FOR IRRIG STERILE 250 ML BOTTLE IR ONE (07:43)
[2021-05-30] MEDS ORDERED: WATER FOR IRRIG STERILE 1,000 ML BOTTLE ONE (07:43)
--- NOTE | 2021-05-30 08:08 | Gastroenterology Consultation ---
History of Present Illness - Reason for Consult Consult date: 05/30/21 GI bleed Requesting physician: RONEY PERALES - History of Present Illness The patient is a 60 yo aam with h/o esrd on HD who presented with black and dark maroon blood for 3 days. Patient with h/o alcohol abuse with recent increase intake. he denies prior h/o gi bleeding. denies nsaids or abd pain. noted to have severe anemia on admission and tachycardic; vitals stable overnight. no known h/o liver disease. denies prior endoscopy. Past History Past Medical History: ESRD, hypertension, other (See HPI) Past Surgical History: hernia repair, Other (Dialysis access) Social history: , smoking, alcohol abuse Family history: diabetes, hypertension Medications and Allergies Allergies Allergy/AdvReac Type Severity Reaction Status Date / Time vancomycin Allergy Severe Anaphylaxis Verified 05/29/21 14:25 Home Medications Medication Instructions Recorded Confirmed Last Taken Type amLODIPine 10 mg PO DAILY 07/21/19 07/21/19 07/20/19 History predniSONE 10 mg PO .TAPER #77 tab 07/26/19 Unknown Rx Active Meds: Active Medications Acetaminophen (Acetaminophen 325 Mg Tab) 650 mg PO Q4H PRN PRN Reason: Pain MILD(1-3)/Fever >100.5/PALOMARES Albuterol (Albuterol 2.5 Mg/3 Ml Nebu) 2.5 mg IH Q4HRT PRN PRN Reason: Shortness Of Breath Amlodipine Besylate (Amlodipine 10 Mg Tab) 10 mg PO DAILY TAMMIE Folic Acid (Folic Acid 1 Mg Tab) 1 mg PO QDAY TAMMIE Hydromorphone HCl (Hydromorphone 1 Mg/1 Ml Inj) 0.5 mg IV Q12H PRN PRN Reason: Pain , Severe (7-10) Sodium Chloride (Nacl 0.9% 500 Ml) 500 mls @ 0 mls/hr IV ONCE TAMMIE Stop: 05/30/21 16:48 Sodium Chloride (Nacl 0.9% 1000 Ml) 1,000 mls @ 50 mls/hr IV DIRECT TAMMIE Lorazepam (Lorazepam 2 Mg/Ml Vial) 2 mg IV Q1HR PRN PRN Reason: CIWA-Ar 8-15 Ondansetron HCl (Ondansetron 4 Mg/2 Ml Inj) 4 mg IV Q8H PRN PRN Reason: Nausea And Vomiting Oxycodone/Acetaminophen (Oxycodone /Acetaminophen 5-325mg Tab) 1 tab PO Q12H PRN PRN Reason: Pain, Moderate (4-6) Pantoprazole Sodium (Pantoprazole 40 Mg Inj) 40 mg IV BID [facility] Last Admin: 05/30/21 02:37 Dose: Not Given Documented by: Sodium Chloride (Sodium Chloride 0.9% 10 Ml Flush Syringe) 10 ml IV BID [facility] Last Admin: 05/30/21 02:38 Dose: Not Given Documented by: Sodium Chloride (Sodium Chloride 0.9% 10 Ml Flush Syringe) 10 ml IV PRN PRN PRN Reason: LINE FLUSH reviewed/updated patient's home and current medications Review of Systems - Review of Systems All systems: negative (per HPI) Exam - Constitutional Vital Signs: Temp Pulse Resp BP Pulse Ox 98.6 F 86 17 155/91 99 05/30/21 05:56 05/30/21 05:56 05/30/21 05:56 05/30/21 05:56 05/30/21 05:56 General appearance: no acute distress - Respiratory Respiratory effort: normal Respiratory: bilateral: CTA - Cardiovascular Rhythm: regular Heart Sounds: Present: S1 & S2 - Gastrointestinal General gastrointestinal: Present: soft, non-tender, non-distended - Integumentary Integumentary: Present: clear, warm - Neurologic Neurological: alert and oriented x3 - Psychiatric Psychiatric: appropriate mood/affect - Labs CBC & Chem 7: 05/29/21 15:25 05/29/21 15:25 Lab Results: Laboratory Results - last 24 hr 05/29/21 05/29/21 05/29/21 15:25 15:25 15:34 WBC 10.3 RBC 1.40 L Hgb 6.2 L Hct 18.7 L* MCV 134 H MCH 44 H MCHC 33 RDW 16.7 H Plt Count 221 Lymph % (Auto) 14.8 Cooke % (Auto) 7.3 Eos % (Auto) 0.3 Baso % (Auto) 0.8 Lymph # (Auto) 1.5 [place]oke # (Auto) 0.7 Eos # (Auto) 0.0 Baso # (Auto) 0.1 Seg Neutrophils % 76.8 H Seg Neutrophils # 7.9 H PT INR APTT Sodium 138 Potassium 3.9 Chloride 98.8 Carbon Dioxide 25 Anion Gap 18 BUN 26 H Creatinine 6.8 H Estimated GFR 10 BUN/Creatinine Ratio 4 Glucose 99 Calcium 8.6 Phosphorus 2.30 L Magnesium 1.80 Total Bilirubin 0.50 AST 13 ALT 8 Alkaline Phosphatase 66 Troponin T 0.032 H NT-Pro-B Natriuret Pep 50646 H Total Protein 5.1 L Albumin 2.6 L Albumin/Globulin Ratio 1.0 Triglycerides 138 Cholesterol 75 LDL Cholesterol Direct 40 L HDL Cholesterol 33 L Cholesterol/HDL Ratio 2.27 Blood Type O POSITIVE Antibody Screen Negative Crossmatch See Detail 05/29/21 15:34 WBC RBC Hgb Hct MCV MCH MCHC RDW Plt Count Lymph % (Auto) [place]oke % (Auto) Eos % (Auto) Baso % (Auto) Lymph # (Auto) [place]oke # (Auto) Eos # (Auto) Baso # (Auto) Seg Neutrophils % Seg Neutrophils # PT 12.7 INR 0.90 APTT 28.8 Sodium Potassium Chloride Carbon Dioxide Anion Gap BUN Creatinine Estimated GFR BUN/Creatinine Ratio Glucose Calcium Phosphorus Magnesium Total Bilirubin AST ALT Alkaline Phosphatase Troponin T NT-Pro-B Natriuret Pep Total Protein Albumin Albumin/Globulin Ratio Triglycerides Cholesterol LDL Cholesterol Direct HDL Cholesterol Cholesterol/HDL Ratio Blood Type Antibody Screen Crossmatch Assessment and Plan GI bleed - suspicious for upper source. will plan for egd today. needs to be on PPI drip and monitor h/h and transfuse as indicated (to keep hgb > 7). Anemia - unclear baseline, h/o esrd but also with gi bleeding alcohol abuse - no obvious signs of portal htn from labs yet
[2021-05-30] MEDS ORDERED: SODIUM CHLORIDE 0.9% 100 ML ONE (08:12)
--- NOTE | 2021-05-30 08:16 | Operative Report ---
Operative Report Operative Report: Esophagogastroduodenoscopy Procedure Note with control of bleeding (gold probe) and biopsies Date of procedure: 05/30/2021 Endoscopist: Julio César Méndez Pre-op diagnosis/indication: Julio César Méndez Post-op diagnosis: GI bleed MEDICATIONS: MAC COMPLICATIONS: No immediate complications ESTIMATED BLOOD LOSS: Minimal DESCRIPTION OF PROCEDURE: After consent was obtained, the patient was placed in the left lateral decubitis position. The olympus endoscope was inserted into the patient's mouth under direct vision and advanced to the 2nd portion of the duodenum without difficulty. The patient tolerated the procedure well. The views of the mucosa were good. The patient's vital signs were monitored continuously throughout the procedure. FINDINGS: The esophagus appeared normal. There were multiple superficial ulcers in the distal antrum of the stomach. The largest ulcer was ~8 mm in size, and contained two heme spots with some mild oozing of blood seen, treated with gold probe with no active bleeding at the end of the procedure. Biopsies were obtained from the edge of the ulcer. There was severe erythematous and inflamed mucosa throughout the duodenal bulb and first portion of the duodenum. The mucosa was friable to touch with self- limited oozing of blood. Biopsies were obtained. IMPRESSION: 1. Gastric antral ulcers with heme spots and oozing of blood s/p gold probe treatment. No active bleeding at end of procedure from these lesions (some expected mucosal oozing from treatment). Biopsies from ulcer edge were obtained. 2. Severe erythematous and inflamed mucosa in the first part of the duodenum. Biopsied. RECOMMENDATIONS: -IV PPI drip today and tomorrow, monitor H/H and transfuse to keep hgb < 7, can start clear liquid diet today. follow-up path and will need repeat endoscopy in 6-8 weeks.
[2021-05-30] MEDS: PANTOPRAZOLE 80 MG in SODIUM CHLORIDE 0.9% 100 ML IV SCH ×2 (08:45→19:20)
--- NOTE | 2021-05-30 08:53 | Post Anesthesia Evaluation ---
- Post Anesthesia Evaluation Patient Participated: Yes Airway Patent: Yes Stable Respiratory Function: Yes Nausea/Vomiting: No Temp > 96.8F: Yes Pain Manageable: Yes Adequeate Hydration: Yes Anesthesia Complications: No
[2021-05-30] MEDS ORDERED: EPOETIN ALFA-EPBX 20,000 UNIT/1 ML VIAL SUB-Q PRN (09:46)
[2021-05-30] MEDS ORDERED: SODIUM CHLORIDE 0.9% 100 ML IV PRN (09:46)
--- NOTE | 2021-05-30 09:46 | Consultation ---
History of Present Illness - Reason for Consult Consult date: 05/30/21 end stage renal disease - History of Present Illness The patient is a 60 YO male well known to our service with history significant for HTN, Gout, Anemia, ESRD on HD(TTS), Nicotine Dependence and ETOH Dependence who presented to [facility] ED 05/29 with c/o multiple episodes of dark purple blood in his stool over the past 3 days. Patient knowledges nausea as well as right- sided abdominal discomfort. Patient denies any N, V, D, fever, chills, chest pain, palpitation, cough, skin rash, recent ill contacts or known exposure to COVID-19. On evaluation in the ED he was found to be Hemoccult positive stool and Hb 6.2. Patient was admitted for further evaluation of GI bleed. Patient also initiated on CIWA protocol. Nephrology was consulted to manage ESRD. Past History Past Medical History: dialysis, ESRD, hypertension, other (See HPI) Past Surgical History: hernia repair, Other (Dialysis access) Social history: , smoking, alcohol abuse Family history: diabetes, hypertension Medications and Allergies Allergies Allergy/AdvReac Type Severity Reaction Status Date / Time vancomycin Allergy Severe Anaphylaxis Verified 05/29/21 14:25 Home Medications Medication Instructions Recorded Confirmed Last Taken Type amLODIPine 10 mg PO DAILY 07/21/19 07/21/19 07/20/19 History predniSONE 10 mg PO .TAPER #77 tab 07/26/19 Unknown Rx Active Meds: Active Medications Acetaminophen (Acetaminophen 325 Mg Tab) 650 mg PO Q4H PRN PRN Reason: Pain MILD(1-3)/Fever >100.5/PALOMARES Albuterol (Albuterol 2.5 Mg/3 Ml Nebu) 2.5 mg IH Q4HRT PRN PRN Reason: Shortness Of Breath Amlodipine Besylate (Amlodipine 10 Mg Tab) 10 mg PO DAILY TAMMIE Folic Acid (Folic Acid 1 Mg Tab) 1 mg PO QDAY TAMMIE Hydromorphone HCl (Hydromorphone 1 Mg/1 Ml Inj) 0.5 mg IV Q12H PRN PRN Reason: Pain , Severe (7-10) Sodium Chloride (Nacl 0.9% 500 Ml) 500 mls @ 0 mls/hr IV ONCE TAMMIE Stop: 05/30/21 16:48 Sodium Chloride (Nacl 0.9% 1000 Ml) 1,000 mls @ 50 mls/hr IV DIRECT TAMMIE Pantoprazole Sodium 80 mg/ (Sodium Chloride) 100 mls @ 10 mls/hr IV DIRECT TAMMIE Last Admin: 05/30/21 08:45 Dose: 8 mg/hr, 10 mls/hr Documented by: Lorazepam (Lorazepam 2 Mg/Ml Vial) 2 mg IV Q1HR PRN PRN Reason: CIWA-Ar 8-15 Ondansetron HCl (Ondansetron 4 Mg/2 Ml Inj) 4 mg IV Q8H PRN PRN Reason: Nausea And Vomiting Oxycodone/Acetaminophen (Oxycodone /Acetaminophen 5-325mg Tab) 1 tab PO Q12H PRN PRN Reason: Pain, Moderate (4-6) Sodium Chloride (Sodium Chloride 0.9% 10 Ml Flush Syringe) 10 ml IV BID TAMMIE Last Admin: 05/30/21 02:38 Dose: Not Given Documented by: Sodium Chloride (Sodium Chloride 0.9% 10 Ml Flush Syringe) 10 ml IV PRN PRN PRN Reason: LINE FLUSH Review of Systems Constitutional: weight loss, anorexia, poor appetite, no weight gain, no fever, no chills, no weakness Cardiovascular: high blood pressure, no chest pain, no orthopnea, no edema, no syncope, no lightheadedness, no shortness of breath Respiratory: no cough, no hemoptysis, no shortness of breath, no dyspnea on exertion Gastrointestinal: abdominal pain, melena, no nausea, no vomiting, no diarrhea Genitourinary Male: no dysuria, no hematuria Integumentary: no rash Neurological: no convulsions, no aphasia, no change in speech, no change in mentation, no confusion, no memory loss Exam - Vital Signs Vital signs: Vital Signs Temp Pulse Resp BP Pulse Ox 99.2 F 102 H 16 113/78 100 05/29/21 14:19 05/29/21 14:19 05/29/21 14:19 05/29/21 14:19 05/29/21 14:19 Results - Lab Results 05/30/21 11:13 05/30/21 11:13 Most recent lab results Calcium 8.6 mg/dL (8.4-10.2) 05/29/21 15:25 Phosphorus 2.30 mg/dL (2.5-4.5) L 05/29/21 15:25 Magnesium 1.80 mg/dL (1.7-2.3) 05/29/21 15:25 Assessment and Plan 1. ESRD: Patient is on maintenance hemodialysis three times a week, TTS schedule. Meds dosage based on GFR. Last outpatient HD 05/28. Hemodialysis: 2. FEN: Monitor lytes and volume status. 3. GI bleed, POA: S/p EGD; 1. Gastric antral ulcers with heme spots and oozing of blood s/p gold probe treatment. Biopsies from ulcer edge were obtained. 2. Severe erythematous and inflamed mucosa in the first part of the duodenum. Biopsied. 4. Acute blood loss anemia, POA: 2/2 GI bleed. S/p PRBC. Epogen with HD. Monitor. 5. Hypertension: Adjust meds as needed. Monitor. 6. Alcohol abuse: [facility] protocol. Counseled. Subjective: Patient was seen and examined at the bedside. General Appearance: General appearance: well-developed, appears stated age, not in distress HEENT: ATNC, pupils equal Neck: trachea midline Respiratory: ctab Heart: regular, S1S2, no murmur Abdomen: soft, bowel sounds heard, not tender Integumentary: no rash, warm and dry Neurologic: AO, able to move extremities Ext: no edema Hemodialysis access: L arm AVF
[2021-05-30 12:08] LABS: Hematocrit 22.2 % (35.5-45.6); Hemoglobin 7.7 gm/dl (11.8-15.2); Mean Corpuscular HGB Conc 35 % (32-34); Platelet Count 200 K/mm3 (140-440); Red Blood Count 1.97 M/mm3 (3.65-5.03)
[2021-05-30 12:13] LABS: Mean Corpuscular Volume 113 fl (84-94); Red Cell Distribution Width 31.3 % (13.2-15.2)
[2021-05-30 12:20] LABS: Calcium 8.8 mg/dL (8.4-10.2)
[2021-05-30 12:26] LABS: Hepatitis B Surface Antigen Non-Reactive (Negative); Hepatitis C Virus Antibody Non-Reactive (NonReactive)
--- NOTE | 2021-05-30 12:34 | Electrocardiograph Report ---
[facility] Test Date: 2021-05-29 Test Time: 18:00:48 Pat Name: MAGALYS CUEVAS Department: Room: A469 1 Gender: M Lpn Instructor: SMILEY : 1960 Requested By: RENAY PERSON Order Number: [id number] Reading MD: Tammy Velázquez Measurements Intervals [place] Rate: 84 P: CT: QRS: 10 QRSD: 88 T: 95 QT: 415 QTc: 492 Interpretive Statements Sinus rhythm with frequent PACs and PVCs Nonspecific ST segment changes No previous ECG available for comparison Electronically Signed On 05-30-2021 12:34:15 EDT by Tammy Velázquez
[2021-05-30 14:26] LABS: Total Cells Counted 100
[2021-05-30 14:27] LABS: Anisocytosis 2+; Band Neutrophils # (Manual) 0.1 K/mm3; Macrocytosis 2+; Platelet Estimate Consistent w Auto
--- NOTE | 2021-05-30 15:35 | Progress Note ---
Assessment and Plan -- GI bleed Due to gastric antral ulcer, status post EGD today S/p packed red blood cell transfusion, PPI therapy, follow H&H gastroenterology team consulted, Repeat CBC in a.m. --Blood loss anemia, follow H&H, transfuse as needed if hemoglobin less than 7 -- Alcohol dependence Placed on [facility] protocol: Thiamine, folic acid, multivitamin daily, supportive care. Monitor for withdrawal -- End stage renal disease Nephrology team consulted in ED, dialysis as per renal team. Avoid nephrotoxic agents. -- Nicotine dependence Smoking cessation counseling, supportive care, -- DVT prophylaxis SCD to bilateral lower extremities while in bed, patient is ambulatory. -- Advance care planning Status: Acute Plan to address problem: Disease education conducted, care plan discussed, diagnosis discussed, prognosis discussed, patient knowledges understanding and agreement with care plan, +30 minutes. Daily clinical course: 05/30/21: Status post endoscopy today which showed gastric antral ulcer. GI recommended clear liquid diet and continuing PPI drip for next 48 hours. Status post 1 unit of packed RBC transfusion, hemoglobin 7.7 this morning. Continue to monitor H&H. Counseled for alcohol cessation Subjective Date of service: 05/30/21 Interval history: Patient seen and examined. Medical records and medication list reviewed. No acute event overnight noted by the RN. Patient denies any chest pain or difficulty breathing. Status post 1 unit of blood transfusion, status post EGD today Discussed plan of care at bedside with patient. Objective - Exam Narrative Exam: GENERAL: well-developed and well-nourished -[place] male lying on bed appeared to be in no discomfort. HEENT: Normocephalic. Atraumatic. No conjunctival congestion or icterus. Patient has moist mucous membranes. NECK: Supple. Trachea midline. CHEST/LUNGS: Clear to auscultated bilaterally, breathing nonlabored. No wheezes crackles or rhonchi. HEART/CARDIOVASCULAR: Regular in rate and rhythm. S1 and S2 positive. ABDOMEN: Abdomen is soft, nontender. Patient has normal bowel sounds. SKIN: There is no rash. Warm and dry. NEURO: No focal motor deficit. Follows command. MUSCULOSKELETAL: No joint effusion or tenderness. EXTRIMITY: No edema, no cyanosis or clubbing. PSYCH: Cooperative. - Constitutional Vitals: Vital Signs - 12hr 05/30/21 05/30/21 05/30/21 04:23 04:50 04:54 Temperature 98.0 F 98.1 F Pulse Rate 92 H 92 H 86 Respiratory 16 18 Rate Blood Pressure 156/90 147/89 O2 Sat by Pulse 99 97 99 Oximetry 05/30/21 05/30/21 05/30/21 05:11 05:26 05:56 Temperature 97.8 F 98.0 F 98.6 F Pulse Rate 101 H 92 H 86 Respiratory 18 18 17 Rate Blood Pressure 154/96 148/95 155/91 O2 Sat by Pulse 100 100 99 Oximetry 05/30/21 05/30/21 05/30/21 07:42 08:04 08:15 Temperature 98.3 F 98.4 F Pulse Rate 86 103 H 87 Respiratory 20 18 25 H Rate Blood Pressure 163/100 109/80 124/84 O2 Sat by Pulse 100 100 100 Oximetry 05/30/21 05/30/21 08:30 10:00 Temperature Pulse Rate 77 Respiratory 17 Rate Blood Pressure 170/94 O2 Sat by Pulse 100 100 Oximetry - Labs CBC & Chem 7: 06/02/21 05:04 06/02/21 05:04 Labs: Abnormal lab results 05/29/21 05/29/21 05/29/21 Range/Units 15:25 15:25 15:34 RBC 1.40 L (3.65-5.03) M/mm3 Hgb 6.2 L (11.8-15.2) gm/dl Hct 18.7 L* (35.5-45.6) % MCV 134 H (84-94) fl MCH 44 H (28-32) pg MCHC (32-34) % RDW 16.7 H (13.2-15.2) % Seg Neutrophils % 76.8 H (40.0-70.0) % Seg Neuts % (Manual) (40.0-70.0) % Seg Neutrophils # 7.9 H (1.8-7.7) K/mm3 Sodium (137-145) mmol/L Chloride (98-107) mmol/L BUN 26 H (9-20) mg/dL Creatinine 6.8 H (0.8-1.3) mg/dL POC Glucose (70-105) mg/dL Phosphorus 2.30 L (2.5-4.5) mg/dL Troponin T 0.032 H (0.00-0.029) ng/mL NT-Pro-B Natriuret Pep 00370 H (0-900) pg/mL Total Protein 5.1 L (6.3-8.2) g/dL Albumin 2.6 L (3.9-5) g/dL LDL Cholesterol Direct 40 L (50-130) mg/dL HDL Cholesterol 33 L (40-59) mg/dL Crossmatch See Detail 05/30/21 05/30/21 05/30/21 Range/Units 08:56 11:13 11:13 RBC 1.97 L (3.65-5.03) M/mm3 Hgb 7.7 L (11.8-15.2) gm/dl Hct 22.2 L (35.5-45.6) % MCV 113 H (84-94) fl MCH 39 H (28-32) pg MCHC 35 H (32-34) % RDW 31.3 H (13.2-15.2) % Seg Neutrophils % (40.0-70.0) % Seg Neuts % (Manual) 82.0 H (40.0-70.0) % Seg Neutrophils # (1.8-7.7) K/mm3 Sodium 136 L (137-145) mmol/L Chloride 97.4 L (98-107) mmol/L BUN 37 H (9-20) mg/dL Creatinine 8.2 H (0.8-1.3) mg/dL POC Glucose 57 L (70-105) mg/dL Phosphorus (2.5-4.5) mg/dL Troponin T (0.00-0.029) ng/mL NT-Pro-B Natriuret Pep (0-900) pg/mL Total Protein (6.3-8.2) g/dL Albumin (3.9-5) g/dL LDL Cholesterol Direct (50-130) mg/dL HDL Cholesterol (40-59) mg/dL Crossmatch HEART Score - HEART Score Troponin: Troponin T 0.032 ng/mL (0.00-0.029) H 05/29/21 15:25
[2021-05-30] MEDS: amLODIPine 10 MG TAB PO SCH (19:21)
[2021-05-30] MEDS: FOLIC ACID 1 MG TAB PO SCH (19:21)
[2021-05-31 04:58] LABS: Hemoglobin 6.7 gm/dl (11.8-15.2); Mean Corpuscular HGB Conc 34 % (32-34); Platelet Count 168 K/mm3 (140-440); Red Blood Count 1.72 M/mm3 (3.65-5.03)
[2021-05-31 05:22] LABS: Calcium 7.9 mg/dL (8.4-10.2)
[2021-05-31 05:59] LABS: Hematocrit 19.5 % (35.5-45.6); Mean Corpuscular Volume 113 fl (84-94); Red Cell Distribution Width 31.2 % (13.2-15.2)
[2021-05-31] MEDS ORDERED: SODIUM CHLORIDE 0.9% 500 ML 500 ML IV ONE (06:37)
[2021-05-31 07:17] LABS: Total Cells Counted 100
[2021-05-31 07:18] LABS: Anisocytosis 2+; Hypochromasia 1+; Macrocytosis 2+; Platelet Estimate Consistent w Auto
--- NOTE | 2021-05-31 08:41 | Progress Note ---
Assessment and Plan 1. ESRD: Patient is on maintenance hemodialysis three times a week, TTS schedule. Meds dosage based on GFR. Last outpatient HD 05/28. Hemodialysis: 05/30. 2. FEN: Monitor lytes and volume status. 3. GI bleed, POA: S/p EGD; 1. Gastric antral ulcers with heme spots and oozing of blood s/p gold probe treatment. Biopsies from ulcer edge were obtained. 2. Severe erythematous and inflamed mucosa in the first part of the duodenum. Biopsied. 4. Acute blood loss anemia, POA: 2/2 GI bleed. PRBC today. Epogen with HD. Monitor. 5. Hypertension: Adjust meds as needed. Monitor. 6. Alcohol abuse: CIWA protocol. Counseled. Subjective: Patient was seen and examined at the bedside. Doing ok. General Appearance: General appearance: well-developed, appears stated age, not in distress HEENT: ATNC, pupils equal Neck: trachea midline Respiratory: ctab Heart: regular, S1S2, no murmur Abdomen: soft, bowel sounds heard, not tender Integumentary: no rash, warm and dry Neurologic: AO, able to move extremities Ext: no edema Hemodialysis access: L arm AVF Subjective Date of service: 05/31/21 Objective - Vital Signs Vital signs: Vital Signs - 12hr 05/30/21 05/30/21 05/31/21 20:44 23:31 02:00 Temperature 97.9 F Pulse Rate 91 H 86 Respiratory 14 Rate Blood Pressure 171/100 Blood Pressure [Left] O2 Sat by Pulse 100 98 Oximetry 05/31/21 05/31/21 03:45 08:37 Temperature 98.5 F 98.4 F Pulse Rate 83 90 Respiratory 17 20 Rate Blood Pressure 148/90 Blood Pressure 160/100 [Left] O2 Sat by Pulse 99 98 Oximetry - Lab 05/31/21 13:30 05/31/21 04:36 Most recent lab results Calcium 7.9 mg/dL (8.4-10.2) L 05/31/21 04:36 Phosphorus 2.30 mg/dL (2.5-4.5) L 05/29/21 15:25 Magnesium 1.80 mg/dL (1.7-2.3) 05/29/21 15:25 Medications & Allergies - Medications Allergies/Adverse Reactions: Allergies vancomycin Allergy (Severe, Verified 05/29/21 14:25) Anaphylaxis RASH, TROUBLE SWALLOWING, REDNESS, Home Medications: Home Medications Medication Instructions Recorded Confirmed Last Taken Type amLODIPine 10 mg PO DAILY 07/21/19 07/21/19 07/20/19 History predniSONE 10 mg PO .TAPER #77 tab 07/26/19 Unknown Rx Active Medications: Generic Name Dose Route Start Last Admin Trade Name Freq PRN Reason Stop Dose Admin Acetaminophen 650 mg 05/29/21 16:46 Acetaminophen 325 Mg Tab PO Q4H PRN Pain MILD(1-3)/Fever >100.5/PALOMARES Albuterol 2.5 mg 05/29/21 16:46 Albuterol 2.5 Mg/3 Ml Nebu IH Q4HRT PRN Shortness Of Breath Amlodipine Besylate 10 mg 05/30/21 10:00 05/30/21 19:21 Amlodipine 10 Mg Tab PO 10 mg DAILY TAMMIE Administration Folic Acid 1 mg 05/30/21 10:00 05/30/21 19:21 Folic Acid 1 Mg Tab PO 1 mg QDAY TAMMIE Administration Hydromorphone HCl 0.5 mg 05/29/21 16:46 Hydromorphone 1 Mg/1 Ml Inj IV Q12H PRN Pain , Severe (7-10) Sodium Chloride 1,000 mls @ 50 mls/hr 05/30/21 07:30 Nacl 0.9% 1000 Ml IV DIRECT TAMMIE Pantoprazole Sodium 80 mg/ 100 mls @ 10 mls/hr 05/30/21 09:00 05/30/21 19:20 Sodium Chloride IV 05/31/21 23:59 8 mg/hr DIRECT TAMMIE 10 mls/hr Administration 8 MG/HR Sodium Chloride 100 mls @ 999 mls/hr 05/30/21 09:46 Nacl 0.9% IV GRICEL PRN Hypotension Lorazepam 2 mg 05/29/21 16:51 Lorazepam 2 Mg/Ml Vial IV Q1HR PRN CIWA-Ar 8-15 Ondansetron HCl 4 mg 05/29/21 16:46 Ondansetron 4 Mg/2 Ml Inj IV Q8H PRN Nausea And Vomiting Oxycodone/Acetaminophen 1 tab 05/29/21 16:46 Oxycodone /Acetaminophen 5-325mg Tab PO Q12H PRN Pain, Moderate (4-6) Pantoprazole Sodium 40 mg 06/01/21 10:00 Pantoprazole 40 Mg Inj IV BID TAMMIE Sodium Chloride 10 ml 05/29/21 22:00 05/30/21 21:58 Sodium Chloride 0.9% 10 Ml Flush Syringe IV 10 ml BID TAMMIE Administration Sodium Chloride 10 ml 05/29/21 16:46 Sodium Chloride 0.9% 10 Ml Flush Syringe IV PRN PRN LINE FLUSH
[2021-05-31] MEDS: FOLIC ACID 1 MG TAB PO SCH (10:54)
[2021-05-31] MEDS: amLODIPine 10 MG TAB PO SCH (10:55)
[2021-05-31 13:48] LABS: Hematocrit 22.8 % (35.5-45.6); Hemoglobin 8.2 gm/dl (11.8-15.2)
--- NOTE | 2021-05-31 13:50 | Gastroenterology Progress Note ---
Assessment and Plan GI bleed/melena - EGD with antral ulcers with heme spots/oozing s/p gold probe treatment. had dark stool early AM, none since. cont IV PPI drip and switch to bid dosing tomorrow if labs stable w/o further bleeding. also had severe eryth ematous and inflamed mucosa in duodenum of unclear etiology/significance. follow-up path from procedures. counseled on alcohol cessation. Subjective Date of service: 05/31/21 Principal diagnosis: GI bleed Interval history: reports having black appearing stool early this AM, none since. denies abd pain. tolerating po Objective - Constitutional Vitals: Temp Pulse Resp BP Pulse Ox 98.4 F 74 20 160/100 100 05/31/21 08:37 05/31/21 10:00 05/31/21 08:37 05/31/21 08:37 05/31/21 11:12 General appearance: no acute distress - Respiratory Respiratory effort: normal Respiratory: bilateral: CTA - Cardiovascular Rhythm: regular Heart Sounds: Present: S1 & S2 - Gastrointestinal General gastrointestinal: Present: soft, non-tender - Labs CBC & Chem 7: 05/31/21 04:36 05/31/21 04:36 Labs: Laboratory Results - last 24 hr 05/29/21 05/30/21 05/31/21 15:34 11:13 04:36 WBC 8.1 RBC 1.72 L Hgb 6.7 L Hct 19.5 L* MCV 113 H MCH 39 H MCHC 34 RDW 31.2 H Plt Count 168 Add Manual Diff Complete Complete Total Counted 100 100 Seg Neuts % (Manual) 82.0 H 88.0 H Band Neutrophils % 1.0 Lymphocytes % (Manual) 15.0 9.0 L Monocytes % (Manual) 2.0 2.0 Basophils % (Manual) 1.0 Nucleated RBC % Not Reportable Not Reportable Seg Neutrophils # Man 7.4 7.1 Band Neutrophils # 0.1 0.0 Lymphocytes # (Manual) 1.4 0.7 L Abs React Lymphs (Man) 0.0 0.0 Monocytes # (Manual) 0.2 0.2 Eosinophils # (Manual) 0.0 0.0 Basophils # (Manual) 0.0 0.1 Metamyelocytes # 0.0 0.0 Myelocytes # 0.0 0.0 Promyelocytes # 0.0 0.0 Blast Cells # 0.0 0.0 WBC Morphology Not Reportable Not Reportable Hypersegmented Neuts Not Reportable Not Reportable Hyposegmented Neuts Not Reportable Not Reportable Hypogranular Neuts Not Reportable Not Reportable Smudge Cells Not Reportable Not Reportable Toxic Granulation Not Reportable Not Reportable Toxic Vacuolation Not Reportable Not Reportable Dohle Bodies Not Reportable Not Reportable Pelger-Huet Anomaly Not Reportable Not Reportable Mildred Rods Not Reportable Not Reportable Platelet Estimate Consistent w auto Consistent w auto Clumped Platelets Not Reportable Not Reportable Plt Clumps, EDTA Not Reportable Not Reportable Large Platelets Not Reportable Not Reportable Giant Platelets Not Reportable Not Reportable Platelet Satelliting Not Reportable Not Reportable Plt Morphology Comment Not Reportable Not Reportable RBC Morphology Not Reportable Not Reportable Dimorphic RBCs Not Reportable Not Reportable Polychromasia Not Reportable Not Reportable Hypochromasia Not Reportable 1+ Poikilocytosis Not Reportable Not Reportable Anisocytosis 2+ 2+ Microcytosis Not Reportable Not Reportable Macrocytosis 2+ 2+ Spherocytes Not Reportable Not Reportable Pappenheimer Bodies Not Reportable Not Reportable Sickle Cells Not Reportable Not Reportable Target Cells Not Reportable Not Reportable Tear Drop Cells Not Reportable Not Reportable Ovalocytes Not Reportable Not Reportable Helmet Cells Not Reportable Not Reportable Santos-[place] Bodies Not Reportable Not Reportable Clayton Rings Not Reportable Not Reportable Bradford Cells Not Reportable Not Reportable Bite Cells Not Reportable Not Reportable Crenated Cell Not Reportable Not Reportable Elliptocytes Not Reportable Not Reportable Acanthocytes (Spur) Not Reportable Not Reportable Rouleaux Not Reportable Not Reportable Hemoglobin C Crystals Not Reportable Not Reportable Schistocytes Not Reportable Not Reportable Malaria parasites Not Reportable Not Reportable Prem Bodies Not Reportable Not Reportable Hem Pathologist Commnt No No Sodium Potassium Chloride Carbon Dioxide Anion Gap BUN Creatinine Estimated GFR BUN/Creatinine Ratio Glucose Calcium Blood Type O POSITIVE Antibody Screen Negative Crossmatch See Detail 05/31/21 04:36 WBC RBC Hgb Hct MCV MCH MCHC RDW Plt Count Add Manual Diff Total Counted Seg Neuts % (Manual) Band Neutrophils % Lymphocytes % (Manual) Monocytes % (Manual) Basophils % (Manual) Nucleated RBC % Seg Neutrophils # Man Band Neutrophils # Lymphocytes # (Manual) Abs React Lymphs (Man) Monocytes # (Manual) Eosinophils # (Manual) Basophils # (Manual) Metamyelocytes # Myelocytes # Promyelocytes # Blast Cells # WBC Morphology Hypersegmented Neuts Hyposegmented Neuts Hypogranular Neuts Smudge Cells Toxic Granulation Toxic Vacuolation Dohle Bodies Pelger-Huet Anomaly Mildred Rods Platelet Estimate Clumped Platelets Plt Clumps, EDTA Large Platelets Giant Platelets Platelet Satelliting Plt Morphology Comment RBC Morphology Dimorphic RBCs Polychromasia Hypochromasia Poikilocytosis Anisocytosis Microcytosis Macrocytosis Spherocytes Pappenheimer Bodies Sickle Cells Target Cells Tear Drop Cells Ovalocytes Helmet Cells Santos-[place] Bodies Clayton Rings Bradford Cells Bite Cells Crenated Cell Elliptocytes Acanthocytes (Spur) Rouleaux Hemoglobin C Crystals Schistocytes Malaria parasites Prem Bodies Hem Pathologist Commnt Sodium 137 Potassium 3.4 L Chloride 98.7 Carbon Dioxide 30 D Anion Gap 12 BUN 18 Creatinine 5.2 H Estimated GFR 14 BUN/Creatinine Ratio 3 Glucose 90 Calcium 7.9 L Blood Type Antibody Screen Crossmatch
--- NOTE | 2021-05-31 14:14 | Progress Note ---
Assessment and Plan -- GI bleed Due to gastric antral ulcer, status post EGD today S/p packed red blood cell transfusion, PPI therapy, follow H&H gastroenterology team consulted, Repeat CBC in a.m. --Blood loss anemia, follow H&H, transfuse as needed if hemoglobin less than 7 -- Alcohol dependence Placed on [facility] protocol: Thiamine, folic acid, multivitamin daily, supportive care. Monitor for withdrawal -- End stage renal disease Nephrology team consulted in ED, dialysis as per renal team. Avoid nephrotoxic agents. -- Nicotine dependence Smoking cessation counseling, supportive care, -- DVT prophylaxis SCD to bilateral lower extremities while in bed, patient is ambulatory. -- Advance care planning Status: Acute Plan to address problem: Disease education conducted, care plan discussed, diagnosis discussed, prognosis discussed, patient knowledges understanding and agreement with care plan, +30 minutes. Daily clinical course: 05/30/21: Status post endoscopy today which showed gastric antral ulcer. GI recommended clear liquid diet and continuing PPI drip for next 48 hours. Status post 1 unit of packed RBC transfusion, hemoglobin 7.7 this morning. Continue to monitor H&H. Counseled for alcohol cessation. 05/31/21: Patient continues to complains of back stool. Continue to monitor H&H . cont IV PPI drip and switch to bid dosing tomorrow if labs stable w/o further bleeding. follow-up path from procedures. Follow clinically, advance diet Subjective Date of service: 05/31/21 Principal diagnosis: GI bleed Interval history: Patient seen and examined. Medical records and medication list reviewed. No acute event overnight noted by the RN. Patient denies any chest pain or difficulty breathing. Status post 1 unit of blood transfusion, status post EGD, tolerating diet Discussed plan of care at bedside with patient. Objective - Exam Narrative Exam: GENERAL: well-developed and well-nourished -[place] male lying on bed appeared to be in no discomfort. HEENT: Normocephalic. Atraumatic. No conjunctival congestion or icterus. Patient has moist mucous membranes. NECK: Supple. Trachea midline. CHEST/LUNGS: Clear to auscultated bilaterally, breathing nonlabored. No wheezes crackles or rhonchi. HEART/CARDIOVASCULAR: Regular in rate and rhythm. S1 and S2 positive. ABDOMEN: Abdomen is soft, nontender. Patient has normal bowel sounds. SKIN: There is no rash. Warm and dry. NEURO: No focal motor deficit. Follows command. MUSCULOSKELETAL: No joint effusion or tenderness. EXTRIMITY: No edema, no cyanosis or clubbing. PSYCH: Cooperative. - Constitutional Vitals: Vital Signs - 12hr 05/31/21 05/31/21 05/31/21 03:45 08:37 09:41 Temperature 98.5 F 98.4 F Pulse Rate 83 90 Respiratory 17 20 Rate Blood Pressure 148/90 Blood Pressure 160/100 [Left] O2 Sat by Pulse 99 98 100 Oximetry 05/31/21 05/31/21 10:00 11:12 Temperature Pulse Rate 74 Respiratory Rate Blood Pressure Blood Pressure [Left] O2 Sat by Pulse 100 Oximetry - Labs CBC & Chem 7: 06/02/21 05:04 06/02/21 05:04 Labs: Abnormal lab results 05/29/21 05/30/21 05/31/21 Range/Units 15:34 11:13 04:36 RBC 1.72 L (3.65-5.03) M/mm3 Hgb 6.7 L (11.8-15.2) gm/dl Hct 19.5 L* (35.5-45.6) % MCV 113 H (84-94) fl MCH 39 H (28-32) pg RDW 31.2 H (13.2-15.2) % Seg Neuts % (Manual) 82.0 H 88.0 H (40.0-70.0) % Lymphocytes % (Manual) 9.0 L (13.4-35.0) % Lymphocytes # (Manual) 0.7 L (1.2-5.4) K/mm3 Potassium (3.6-5.0) mmol/L Creatinine (0.8-1.3) mg/dL Calcium (8.4-10.2) mg/dL Crossmatch See Detail 05/31/21 05/31/21 Range/Units 04:36 13:30 RBC (3.65-5.03) M/mm3 Hgb 8.2 L (11.8-15.2) gm/dl Hct 22.8 L (35.5-45.6) % MCV (84-94) fl MCH (28-32) pg RDW (13.2-15.2) % Seg Neuts % (Manual) (40.0-70.0) % Lymphocytes % (Manual) (13.4-35.0) % Lymphocytes # (Manual) (1.2-5.4) K/mm3 Potassium 3.4 L (3.6-5.0) mmol/L Creatinine 5.2 H (0.8-1.3) mg/dL Calcium 7.9 L (8.4-10.2) mg/dL Crossmatch HEART Score - HEART Score Troponin: Troponin T 0.032 ng/mL (0.00-0.029) H 05/29/21 15:25
[2021-06-01 04:54] LABS: Hematocrit 23.2 % (35.5-45.6); Mean Corpuscular HGB Conc 34 % (32-34); Mean Corpuscular Volume 111 fl (84-94); Platelet Count 178 K/mm3 (140-440); Red Blood Count 2.09 M/mm3 (3.65-5.03); Red Cell Distribution Width 31.1 % (13.2-15.2)
[2021-06-01 06:49] LABS: Anisocytosis 1+; Macrocytosis 2+; Total Cells Counted 100
[2021-06-01 06:51] LABS: Platelet Estimate Consistent w Auto
--- NOTE | 2021-06-01 11:19 | Progress Note ---
Assessment and Plan 1. ESRD: Patient is on maintenance hemodialysis three times a week, TTS schedule. Meds dosage based on GFR. Last outpatient HD 05/28. Hemodialysis: 05/30, 06/01. 2. FEN: Monitor lytes and volume status. 3. GI bleed, POA: S/p EGD; 1. Gastric antral ulcers with heme spots and oozing of blood s/p gold probe treatment. Biopsies from ulcer edge were obtained. 2. Severe erythematous and inflamed mucosa in the first part of the duodenum, biopsied. 4. Acute blood loss anemia, POA: 2/2 GI bleed. S?p PRBC. Epogen with HD. Monitor. 5. Hypertension: Adjust meds as needed. Monitor. 6. Alcohol abuse: [place] protocol. Counseled. Subjective: Patient was seen and examined at the bedside. Doing ok. General Appearance: General appearance: well-developed, appears stated age, not in distress HEENT: ATNC, pupils equal Neck: trachea midline Respiratory: ctab Heart: regular, S1S2, no murmur Abdomen: soft, bowel sounds heard, not tender Integumentary: no rash, warm and dry Neurologic: AO, able to move extremities Ext: no edema Hemodialysis access: L arm AVF Subjective Date of service: 06/01/21 Principal diagnosis: GI bleed Objective - Vital Signs Vital signs: Vital Signs - 12hr 05/31/21 06/01/21 06/01/21 23:37 05:04 05:15 Temperature 98.5 F 98.2 F 97.7 F Pulse Rate 79 82 104 H Respiratory 18 18 24 Rate Blood Pressure 149/91 152/97 Blood Pressure 122/87 [Left] O2 Sat by Pulse 98 97 92 Oximetry 06/01/21 06/01/21 06/01/21 08:13 09:45 09:50 Temperature 98.2 F 98.2 F Pulse Rate 91 H 82 82 Respiratory 20 16 Rate Blood Pressure 156/91 163/90 163/90 Blood Pressure [Left] O2 Sat by Pulse 98 Oximetry 06/01/21 06/01/21 06/01/21 10:00 10:15 10:30 Temperature Pulse Rate 82 80 76 Respiratory Rate Blood Pressure 163/90 165/84 166/94 Blood Pressure [Left] O2 Sat by Pulse Oximetry 06/01/21 10:45 Temperature Pulse Rate 69 Respiratory Rate Blood Pressure 139/90 Blood Pressure [Left] O2 Sat by Pulse Oximetry - Lab 06/01/21 04:21 05/31/21 04:36 Most recent lab results Calcium 7.9 mg/dL (8.4-10.2) L 05/31/21 04:36 Phosphorus 2.30 mg/dL (2.5-4.5) L 05/29/21 15:25 Magnesium 1.80 mg/dL (1.7-2.3) 05/29/21 15:25 Medications & Allergies - Medications Allergies/Adverse Reactions: Allergies vancomycin Allergy (Severe, Verified 05/29/21 14:25) Anaphylaxis RASH, TROUBLE SWALLOWING, REDNESS, Home Medications: Home Medications Medication Instructions Recorded Confirmed Last Taken Type amLODIPine 10 mg PO DAILY 07/21/19 07/21/19 07/20/19 History predniSONE 10 mg PO .TAPER #77 tab 07/26/19 Unknown Rx Active Medications: Generic Name Dose Route Start Last Admin Trade Name Freq PRN Reason Stop Dose Admin Acetaminophen 650 mg 05/29/21 16:46 Acetaminophen 325 Mg Tab PO Q4H PRN Pain MILD(1-3)/Fever >100.5/PALOMARES Albuterol 2.5 mg 05/29/21 16:46 Albuterol 2.5 Mg/3 Ml Nebu IH Q4HRT PRN Shortness Of Breath Amlodipine Besylate 10 mg 05/30/21 10:00 05/31/21 10:55 Amlodipine 10 Mg Tab PO 10 mg DAILY TAMMIE Administration Folic Acid 1 mg 05/30/21 10:00 05/31/21 10:54 Folic Acid 1 Mg Tab PO 1 mg QDAY TAMMIE Administration Hydromorphone HCl 0.5 mg 05/29/21 16:46 Hydromorphone 1 Mg/1 Ml Inj IV Q12H PRN Pain , Severe (7-10) Sodium Chloride 100 mls @ 999 mls/hr 05/30/21 09:46 Nacl 0.9% IV GRICEL PRN Hypotension Lorazepam 2 mg 05/29/21 16:51 Lorazepam 2 Mg/Ml Vial IV Q1HR PRN CIWA-Ar 8-15 Ondansetron HCl 4 mg 05/29/21 16:46 Ondansetron 4 Mg/2 Ml Inj IV Q8H PRN Nausea And Vomiting Oxycodone/Acetaminophen 1 tab 05/29/21 16:46 Oxycodone /Acetaminophen 5-325mg Tab PO Q12H PRN Pain, Moderate (4-6) Pantoprazole Sodium 40 mg 06/01/21 10:00 Pantoprazole 40 Mg Inj IV BID TAMMIE Sodium Chloride 10 ml 05/29/21 22:00 05/31/21 21:28 Sodium Chloride 0.9% 10 Ml Flush Syringe IV 10 ml BID TAMMIE Administration Sodium Chloride 10 ml 05/29/21 16:46 Sodium Chloride 0.9% 10 Ml Flush Syringe IV PRN PRN LINE FLUSH
[2021-06-01] MEDS ORDERED: SODIUM CHLORIDE 0.9% 100 ML IV PRN (11:47)
--- NOTE | 2021-06-01 14:25 | Progress Note ---
Assessment and Plan -- GI bleed Due to gastric antral ulcer, status post EGD S/p packed red blood cell transfusion, PPI therapy, follow H&H gastroenterology team consulted, Repeat CBC in a.m. --Blood loss anemia, follow H&H, transfuse as needed if hemoglobin less than 7 -- Alcohol dependence Placed on [facility] protocol: Thiamine, folic acid, multivitamin daily, supportive care. Monitor for withdrawal -- End stage renal disease Nephrology team consulted in ED, dialysis as per renal team. Avoid nephrotoxic agents. -- Nicotine dependence Smoking cessation counseling, supportive care, -- DVT prophylaxis SCD to bilateral lower extremities while in bed, patient is ambulatory. -- Advance care planning Disease education conducted, care plan discussed, diagnosis discussed, prognosis discussed, patient knowledges understanding and agreement with care plan, +30 minutes. Daily clinical course: 05/30/21: Status post endoscopy today which showed gastric antral ulcer. GI recommended clear liquid diet and continuing PPI drip for next 48 hours. Status post 1 unit of packed RBC transfusion, hemoglobin 7.7 this morning. Continue to monitor H&H. Counseled for alcohol cessation. 05/31/21: Patient continues to complains of back stool. Continue to monitor H&H . cont IV PPI drip and switch to bid dosing tomorrow if labs stable w/o further bleeding. follow-up path from procedures. Follow clinically, advance diet 06/01/21: Status post hemodialysis today, stop PPI drip and change to twice daily. Advance diet as tolerated. Follow GI recommendation for discharge planning Subjective Date of service: 06/01/21 Principal diagnosis: GI bleed Interval history: Patient seen and examined. Medical records and medication list reviewed. No acute event overnight noted by the RN. Patient denies any chest pain or difficulty breathing. Stop PPI drip today, changed to IV twice daily Discussed plan of care at bedside with patient. Objective - Exam Narrative Exam: GENERAL: well-developed and well-nourished -[place] male lying on bed appeared to be in no discomfort. HEENT: Normocephalic. Atraumatic. No conjunctival congestion or icterus. Patient has moist mucous membranes. NECK: Supple. Trachea midline. CHEST/LUNGS: Clear to auscultated bilaterally, breathing nonlabored. No wheezes crackles or rhonchi. HEART/CARDIOVASCULAR: Regular in rate and rhythm. S1 and S2 positive. ABDOMEN: Abdomen is soft, nontender. Patient has normal bowel sounds. SKIN: There is no rash. Warm and dry. NEURO: No focal motor deficit. Follows command. MUSCULOSKELETAL: No joint effusion or tenderness. EXTRIMITY: No edema, no cyanosis or clubbing. PSYCH: Cooperative. - Constitutional Vitals: Vital Signs - 12hr 06/01/21 06/01/21 06/01/21 05:04 05:15 08:13 Temperature 98.2 F 97.7 F 98.2 F Pulse Rate 82 104 H 91 H Respiratory 18 24 20 Rate Blood Pressure 152/97 156/91 Blood Pressure 122/87 [Left] O2 Sat by Pulse 97 92 98 Oximetry 06/01/21 06/01/21 06/01/21 09:45 09:50 10:00 Temperature 98.2 F Pulse Rate 82 82 82 Respiratory 16 Rate Blood Pressure 163/90 163/90 163/90 Blood Pressure [Left] O2 Sat by Pulse Oximetry 06/01/21 06/01/21 06/01/21 10:15 10:30 10:45 Temperature Pulse Rate 80 76 69 Respiratory Rate Blood Pressure 165/84 166/94 139/90 Blood Pressure [Left] O2 Sat by Pulse Oximetry 06/01/21 06/01/21 06/01/21 11:00 11:15 11:30 Temperature Pulse Rate 69 90 66 Respiratory Rate Blood Pressure 139/90 146/94 150/71 Blood Pressure [Left] O2 Sat by Pulse Oximetry 06/01/21 06/01/21 06/01/21 11:45 12:00 12:15 Temperature Pulse Rate 65 77 69 Respiratory Rate Blood Pressure 151/83 142/87 159/82 Blood Pressure [Left] O2 Sat by Pulse Oximetry 06/01/21 06/01/21 12:30 12:45 Temperature Pulse Rate 83 76 Respiratory Rate Blood Pressure 149/82 160/69 Blood Pressure [Left] O2 Sat by Pulse Oximetry - Labs CBC & Chem 7: 06/02/21 05:04 06/02/21 05:04 Labs: Abnormal lab results 05/29/21 06/01/21 Range/Units 15:34 04:21 RBC 2.09 L (3.65-5.03) M/mm3 Hgb 8.0 L (11.8-15.2) gm/dl Hct 23.2 L (35.5-45.6) % MCV 111 H (84-94) fl MCH 38 H (28-32) pg RDW 31.1 H (13.2-15.2) % Seg Neuts % (Manual) 87.0 H (40.0-70.0) % Lymphocytes % (Manual) 6.0 L (13.4-35.0) % Lymphocytes # (Manual) 0.5 L (1.2-5.4) K/mm3 Crossmatch See Detail HEART Score - HEART Score Troponin: Troponin T 0.032 ng/mL (0.00-0.029) H 05/29/21 15:25
[2021-06-01] MEDS: amLODIPine 10 MG TAB PO SCH (15:10)
[2021-06-01] MEDS: FOLIC ACID 1 MG TAB PO SCH (15:10)
[2021-06-01] MEDS: PANTOPRAZOLE 40 MG INJ IV SCH ×2 (15:10→21:42)
--- NOTE | 2021-06-01 16:24 | Gastroenterology Progress Note ---
Assessment and Plan 1. GI: UGI bleed due to PUD s/p treatment - continue PPI qd - h/h stable, follow - advance diet as tolerated - ok to dc from GI standpoint Subjective Date of service: 06/01/21 Principal diagnosis: GI bleed Interval history: - no signs bleeding or other GI issues overnight Objective - Constitutional Vitals: Temp Pulse Resp BP Pulse Ox 98.2 F 76 16 160/69 98 06/01/21 09:45 06/01/21 12:45 06/01/21 09:45 06/01/21 12:45 06/01/21 08:13 General appearance: no acute distress - EENT Eyes: PERRL - Respiratory Respiratory: bilateral: CTA - Cardiovascular Rhythm: regular Heart Sounds: Present: S1 & S2 - Gastrointestinal General gastrointestinal: Present: soft, non-tender, non-distended - Labs CBC & Chem 7: 06/01/21 04:21 05/31/21 04:36 Labs: Laboratory Results - last 24 hr 05/29/21 06/01/21 15:34 04:21 WBC 7.6 RBC 2.09 L Hgb 8.0 L Hct 23.2 L MCV 111 H MCH 38 H MCHC 34 RDW 31.1 H Plt Count 178 Add Manual Diff Complete Total Counted 100 Seg Neuts % (Manual) 87.0 H Lymphocytes % (Manual) 6.0 L Monocytes % (Manual) 6.0 Eosinophils % (Manual) 1.0 Nucleated RBC % Not Reportable Seg Neutrophils # Man 6.6 Band Neutrophils # 0.0 Lymphocytes # (Manual) 0.5 L Abs React Lymphs (Man) 0.0 Monocytes # (Manual) 0.5 Eosinophils # (Manual) 0.1 Basophils # (Manual) 0.0 Metamyelocytes # 0.0 Myelocytes # 0.0 Promyelocytes # 0.0 Blast Cells # 0.0 WBC Morphology Not Reportable Hypersegmented Neuts Not Reportable Hyposegmented Neuts Not Reportable Hypogranular Neuts Not Reportable Smudge Cells Not Reportable Toxic Granulation Not Reportable Toxic Vacuolation Not Reportable Dohle Bodies Not Reportable Pelger-Huet Anomaly Not Reportable Mildred Rods Not Reportable Platelet Estimate Consistent w auto Clumped Platelets Not Reportable Plt Clumps, EDTA Not Reportable Large Platelets Not Reportable Giant Platelets Not Reportable Platelet Satelliting Not Reportable Plt Morphology Comment Not Reportable RBC Morphology Not Reportable Dimorphic RBCs Not Reportable Polychromasia Not Reportable Hypochromasia Not Reportable Poikilocytosis Not Reportable Anisocytosis 1+ Microcytosis Not Reportable Macrocytosis 2+ Spherocytes Not Reportable Pappenheimer Bodies Not Reportable Sickle Cells Not Reportable Target Cells Not Reportable Tear Drop Cells Not Reportable Ovalocytes Not Reportable Helmet Cells Not Reportable [place] Bodies Not Reportable [place] Rings Not Reportable [place] Cells Not Reportable Bite Cells Not Reportable Crenated Cell Not Reportable Elliptocytes Not Reportable Acanthocytes (Spur) Not Reportable Rouleaux Not Reportable Hemoglobin C Crystals Not Reportable Schistocytes Not Reportable Malaria parasites Not Reportable Prem Bodies Not Reportable Hem Pathologist Commnt No Crossmatch See Detail
[2021-06-02 05:55] LABS: Hematocrit 22.8 % (35.5-45.6); Hemoglobin 7.9 gm/dl (11.8-15.2); Mean Corpuscular HGB Conc 35 % (32-34); Platelet Count 175 K/mm3 (140-440); Red Blood Count 2.05 M/mm3 (3.65-5.03)
[2021-06-02 05:56] LABS: Mean Corpuscular Volume 112 fl (84-94)
[2021-06-02 06:11] LABS: Calcium 7.5 mg/dL (8.4-10.2)
[2021-06-02 06:51] LABS: Anisocytosis 1+; Macrocytosis 1+; Platelet Estimate Consistent w Auto; Total Cells Counted 100
[2021-06-02] MEDS: PANTOPRAZOLE 40 MG INJ IV SCH (09:12)
[2021-06-02] MEDS: amLODIPine 10 MG TAB PO SCH (09:13)
[2021-06-02] MEDS: FOLIC ACID 1 MG TAB PO SCH (09:13)
--- NOTE | 2021-06-02 09:27 | Progress Note ---
Assessment and Plan 1. ESRD: Patient is on maintenance hemodialysis three times a week, TTS schedule. Meds dosage based on GFR. Last outpatient HD 05/28. Hemodialysis: 05/30, 06/01. 2. FEN: Monitor lytes and volume status. 3. GI bleed, POA: S/p EGD; 1. Gastric antral ulcers with heme spots and oozing of blood s/p gold probe treatment. Biopsies from ulcer edge were obtained. 2. Severe erythematous and inflamed mucosa in the first part of the duodenum, biopsied. 4. Acute blood loss anemia, POA: 2/2 GI bleed. S?p PRBC. Epogen with HD. Monitor. 5. Hypertension: Adjust meds as needed. Monitor. 6. Alcohol abuse: CIWA protocol. Counseled. Subjective: Patient was was not examined today. However the examination findings from other providers noted. The current and previous medical records are reviewed in detail as are laboratory and imaging data reviewed when appropriate. Medications being given are also reviewed. In addition the case has been discussed with the attending hospitalist and the nurse when needed. New renal recommendations as above. General Appearance: Subjective Date of service: 06/02/21 Principal diagnosis: GI bleed Objective - Vital Signs Vital signs: Vital Signs - 12hr 06/02/21 06/02/21 06/02/21 00:09 04:33 04:36 Temperature 98.7 F 98.7 F Pulse Rate 85 79 Respiratory 18 18 Rate Blood Pressure 146/78 162/91 O2 Sat by Pulse 97 98 Oximetry 06/02/21 06/02/21 08:24 09:13 Temperature 98.6 F Pulse Rate 67 67 Respiratory 18 Rate Blood Pressure 166/95 166/95 O2 Sat by Pulse 96 Oximetry - Lab 06/02/21 05:04 06/02/21 05:04 Most recent lab results Calcium 7.5 mg/dL (8.4-10.2) L 06/02/21 05:04 Phosphorus 2.30 mg/dL (2.5-4.5) L 05/29/21 15:25 Magnesium 1.80 mg/dL (1.7-2.3) 05/29/21 15:25 Medications & Allergies - Medications Allergies/Adverse Reactions: Allergies vancomycin Allergy (Severe, Verified 05/29/21 14:25) Anaphylaxis RASH, TROUBLE SWALLOWING, REDNESS, Home Medications: Home Medications Medication Instructions Recorded Confirmed Last Taken Type amLODIPine 10 mg PO DAILY 07/21/19 07/21/19 07/20/19 History Folic Acid [Folvite] 1 mg PO QDAY #30 tablet 06/02/21 Unknown Rx Pantoprazole [Protonix] 40 mg PO QDAY #30 tablet 06/02/21 Unknown Rx Active Medications: Generic Name Dose Route Start Last Admin Trade Name Freq PRN Reason Stop Dose Admin Acetaminophen 650 mg 05/29/21 16:46 Acetaminophen 325 Mg Tab PO Q4H PRN Pain MILD(1-3)/Fever >100.5/PALOMARES Albuterol 2.5 mg 05/29/21 16:46 Albuterol 2.5 Mg/3 Ml Nebu IH Q4HRT PRN Shortness Of Breath Amlodipine Besylate 10 mg 05/30/21 10:00 06/02/21 09:13 Amlodipine 10 Mg Tab PO 10 mg DAILY TAMMIE Administration Folic Acid 1 mg 05/30/21 10:00 06/02/21 09:13 Folic Acid 1 Mg Tab PO 1 mg QDAY TAMMIE Administration Hydromorphone HCl 0.5 mg 05/29/21 16:46 Hydromorphone 1 Mg/1 Ml Inj IV Q12H PRN Pain , Severe (7-10) Sodium Chloride 100 mls @ 999 mls/hr 05/30/21 09:46 Nacl 0.9% IV GRICEL PRN Hypotension Sodium Chloride 100 mls @ 999 mls/hr 06/01/21 11:47 Nacl 0.9% IV GRICEL PRN Hypotension Lorazepam 2 mg 05/29/21 16:51 Lorazepam 2 Mg/Ml Vial IV Q1HR PRN CIWA-Ar 8-15 Ondansetron HCl 4 mg 05/29/21 16:46 Ondansetron 4 Mg/2 Ml Inj IV Q8H PRN Nausea And Vomiting Oxycodone/Acetaminophen 1 tab 05/29/21 16:46 Oxycodone /Acetaminophen 5-325mg Tab PO Q12H PRN Pain, Moderate (4-6) Pantoprazole Sodium 40 mg 06/01/21 10:00 06/02/21 09:12 Pantoprazole 40 Mg Inj IV 40 mg BID TAMMIE Administration Sodium Chloride 10 ml 05/29/21 22:00 06/02/21 09:13 Sodium Chloride 0.9% 10 Ml Flush Syringe IV 10 ml BID TAMMIE Administration Sodium Chloride 10 ml 05/29/21 16:46 Sodium Chloride 0.9% 10 Ml Flush Syringe IV PRN PRN LINE FLUSH
[2021-06-02 12:35] VITALS: BP 160/83
--- NOTE | 2021-06-02 15:18 | Discharge Summary ---
Providers - Providers Date of Admission: 05/31/21 11:58 Date of discharge: 06/02/21 Attending physician: SOPHIA MORRIS Primary care physician: LOPEZ GRIDER Hospitalization Condition: Good Pertinent studies: Chest XRY Hospital course: This is a 60-year-old -[place] male presenting with reported black stools for 3 days, h/o esrd on dialysis. Noted to have severe anemia on admission and dark heme positive stool per ER, BP stable, mild tachycardia. GI consulted in the ER, placed on PPI drip, kept n.p.o., plan for EGD next morning. Patient was admitted to the hospital for further evaluation and management. Daily clinical course: 05/30/21: Status post endoscopy today which showed gastric antral ulcer. GI recommended clear liquid diet and continuing PPI drip for next 48 hours. Status post 1 unit of packed RBC transfusion, hemoglobin 7.7 this morning. Continue to monitor H&H. Counseled for alcohol cessation. 05/31/21: Patient continues to complains of back stool. Continue to monitor H&H . cont IV PPI drip and switch to bid dosing tomorrow if labs stable w/o further bleeding. follow-up path from procedures. Follow clinically, advance diet 06/01/21: Status post hemodialysis today, stop PPI drip and change to twice daily. Advance diet as tolerated. Follow GI recommendation for discharge planning 06/02/21: H&H stable, patient tolerating diet. GI cleared for discharge, patient will be discharged home with PPI therapy and outpatient follow-up with GI in 2 weeks. Discharge planning management was thoroughly discussed with the patient and he verbalized understanding. Disposition: DC- TO HOME OR SELFCARE Final Discharge Diagnosis (Prints w/discharge instructions): -- GI bleed. Due to gastric antral ulcer, status post EGD. --Blood loss anemia, status post 2 units packed RBC transfusion. -- Alcohol dependence, counseled for cessation, placed on CIWA protocol. -- End stage renal disease. -- Nicotine dependence Time spent for discharge: 34 minutes Core Measure Documentation - Palliative Care Palliative Care/ Comfort Measures: Not Applicable - Core Measures Any of the following diagnoses?: history only Exam - Physical Exam Narrative exam: GENERAL: well-developed and well-nourished -[place]ominican male lying on bed appeared to be in no discomfort. HEENT: Normocephalic. Atraumatic. No conjunctival congestion or icterus. Patient has moist mucous membranes. NECK: Supple. Trachea midline. CHEST/LUNGS: Clear to auscultated bilaterally, breathing nonlabored. No wheezes crackles or rhonchi. HEART/CARDIOVASCULAR: Regular in rate and rhythm. S1 and S2 positive. ABDOMEN: Abdomen is soft, nontender. Patient has normal bowel sounds. SKIN: There is no rash. Warm and dry. NEURO: No focal motor deficit. Follows command. MUSCULOSKELETAL: No joint effusion or tenderness. EXTRIMITY: No edema, no cyanosis or clubbing. PSYCH: Cooperative. - Constitutional Vitals: Temp Pulse Resp BP Pulse Ox 98.4 F 79 18 160/83 96 06/02/21 12:33 06/02/21 12:33 06/02/21 12:33 06/02/21 12:33 06/02/21 12:33 Plan Activity: advance as tolerated Weight Bearing Status: Weight Bear as Tolerated Diet: renal Special Instructions: restrict fluid intake to (1.5L daily), record daily BP diary Follow up with: LOPEZ GRIDER MD [Primary Care Provider] - 7 Days Forms: Accompanied Note Prescriptions: Folic Acid [Folvite] 1 mg PO QDAY #30 tablet Pantoprazole [Protonix] 40 mg PO QDAY #30 tablet
--- NOTE | 2021-06-02 17:06 | Gastroenterology Progress Note ---
Assessment and Plan 1. GI: UGI bleed due to PUD s/p treatment - continue PPI qd - h/h stable, follow - advance diet as tolerated - ok to dc from GI standpoint - will sign off, call if needed Subjective Date of service: 06/02/21 Principal diagnosis: GI bleed Interval history: - no GI issues overnight Objective - Constitutional Vitals: Temp Pulse Resp BP Pulse Ox 98.4 F 79 18 160/83 96 06/02/21 12:33 06/02/21 12:33 06/02/21 12:33 06/02/21 12:33 06/02/21 12:33 General appearance: no acute distress - EENT Eyes: PERRL - Respiratory Respiratory: bilateral: CTA - Cardiovascular Heart Sounds: Present: S1 & S2 - Gastrointestinal General gastrointestinal: Present: soft, non-tender, non-distended - Labs CBC & Chem 7: 06/02/21 05:04 06/02/21 05:04 Labs: Laboratory Results - last 24 hr 06/02/21 06/02/21 05:04 05:04 WBC 7.4 RBC 2.05 L Hgb 7.9 L Hct 22.8 L MCV 112 H MCH 39 H MCHC 35 H RDW 30.0 H Plt Count 175 Add Manual Diff Complete Total Counted 100 Seg Neuts % (Manual) 82.0 H Lymphocytes % (Manual) 11.0 L Monocytes % (Manual) 6.0 Eosinophils % (Manual) 1.0 Nucleated RBC % Not Reportable Seg Neutrophils # Man 6.1 Band Neutrophils # 0.0 Lymphocytes # (Manual) 0.8 L Abs React Lymphs (Man) 0.0 Monocytes # (Manual) 0.4 Eosinophils # (Manual) 0.1 Basophils # (Manual) 0.0 Metamyelocytes # 0.0 Myelocytes # 0.0 Promyelocytes # 0.0 Blast Cells # 0.0 WBC Morphology Not Reportable Hypersegmented Neuts Not Reportable Hyposegmented Neuts Not Reportable Hypogranular Neuts Not Reportable Smudge Cells Not Reportable Toxic Granulation Not Reportable Toxic Vacuolation Not Reportable Dohle Bodies Not Reportable Pelger-Huet Anomaly Not Reportable Mildred Rods Not Reportable Platelet Estimate Consistent w auto Clumped Platelets Not Reportable Plt Clumps, EDTA Not Reportable Large Platelets Not Reportable Giant Platelets Not Reportable Platelet Satelliting Not Reportable Plt Morphology Comment Not Reportable RBC Morphology Not Reportable Dimorphic RBCs Not Reportable Polychromasia Not Reportable Hypochromasia Not Reportable Poikilocytosis Not Reportable Anisocytosis 1+ Microcytosis Not Reportable Macrocytosis 1+ Spherocytes Not Reportable Pappenheimer Bodies Not Reportable Sickle Cells Not Reportable Target Cells Not Reportable Tear Drop Cells Not Reportable Ovalocytes Not Reportable Helmet Cells Not Reportable [place] Bodies Not Reportable [place] Rings Not Reportable [place] Cells Not Reportable Bite Cells Not Reportable Crenated Cell Not Reportable Elliptocytes Not Reportable Acanthocytes (Spur) Not Reportable Rouleaux Not Reportable Hemoglobin C Crystals Not Reportable Schistocytes Not Reportable Malaria parasites Not Reportable Prem Bodies Not Reportable Hem Pathologist Commnt No Sodium 137 Potassium 3.7 Chloride 98.4 Carbon Dioxide 28 Anion Gap 14 BUN 13 Creatinine 5.5 H Estimated GFR 13 BUN/Creatinine Ratio 2 Glucose 80 Calcium 7.5 L
== END 2021-06-02 18:36 | disposition home or self-care (01) | DRG 377 ==
LOC: ED 13:55 → 4A 16:46 → OBSVTOIN 05-31 11:58
PROVIDERS: ADMIT Internal Medicine; ATTEND Internal Medicine
PROC: 0DB98ZX Excision of Duodenum, Via Natural or Artificial Opening Endoscopic, Diagnostic (ICD-10-PCS; principal; 2021-05-30)
PROC: 0DB78ZX Excision of Stomach, Pylorus, Via Natural or Artificial Opening Endoscopic, Diagnostic (ICD-10-PCS; 2021-05-30)
PROC: 0D578ZZ Destruction of Stomach, Pylorus, Via Natural or Artificial Opening Endoscopic (ICD-10-PCS; 2021-05-30)
PROC: 5A1D70Z Performance of Urinary Filtration, Intermittent, Less than 6 Hours Per Day (ICD-10-PCS; 2021-05-30)
PROC: 30233N1 Transfusion of Nonautologous Red Blood Cells into Peripheral Vein, Percutaneous Approach (ICD-10-PCS; 2021-05-31)
PROC: 5A1D70Z Performance of Urinary Filtration, Intermittent, Less than 6 Hours Per Day (ICD-10-PCS; 2021-06-01)
DX: K25.4 Chronic or unspecified gastric ulcer with hemorrhage (principal); N18.6 End stage renal disease; I12.0 Hypertensive chronic kidney disease with stage 5 chronic kidney disease or end stage renal disease; D62 Acute posthemorrhagic anemia; F10.20 Alcohol dependence, uncomplicated; M10.9 Gout, unspecified; D64.9 Anemia, unspecified; F17.210 Nicotine dependence, cigarettes, uncomplicated; Z99.2 Dependence on renal dialysis; Z79.899 Other long term (current) drug therapy; Z83.3 Family history of diabetes mellitus; Z82.49 Family history of ischemic heart disease and other diseases of the circulatory system
CPT/HCPCS: 36415; 71045; 80048; 80053; 80061; 80074; 82271; 82962; 83735; 83880; 84100; 84484; 85007; 85018; 85025; 85610; 85730; 86850; 86900; 86901; 86920; 88305; 88342; 93005; G0378; C9113; J0885; J2704; J7040; P9016